=== PATIENT | female | born 1945 | race Caucasian/White ===

== ENCOUNTER 2019-07-29 13:10 | Outpatient (RCR) | payer SELFPAY | END 2019-08-21 23:59 | disposition home or self-care (01) | LOC: CR 13:10 | PROVIDERS: Family Provider Internal Medicine; PCP Internal Medicine; Referring Provider Internal Medicine Cardiovascular Disease; Visit Provider Internal Medicine Cardiovascular Disease | DX: I25.2 Old myocardial infarction (principal) ==

== ENCOUNTER 2019-08-24 14:26 | Outpatient (RCR) | payer SELFPAY | END 2019-09-19 23:59 | disposition home or self-care (01) | LOC: CR 14:26 | PROVIDERS: Family Provider Internal Medicine; PCP Internal Medicine; Referring Provider Internal Medicine Cardiovascular Disease; Visit Provider Internal Medicine Cardiovascular Disease | DX: I25.2 Old myocardial infarction (principal) ==

== ENCOUNTER → 2019-08-26 08:49 | Outpatient (BNVA) | payer MEDICARE, BC, SELFPAY | PROVIDERS: Family Provider Internal Medicine; PCP Internal Medicine; Visit Provider Internal Medicine Cardiovascular Disease | DX: E78.2 Mixed hyperlipidemia (principal); I49.8 Other specified cardiac arrhythmias; I25.5 Ischemic cardiomyopathy; I10 Essential (primary) hypertension | CPT/HCPCS: 80061 ==

== ENCOUNTER 2019-09-22 08:11 | Outpatient (RCR) | payer SELFPAY | END 2019-10-20 23:59 | disposition home or self-care (01) | LOC: CR 08:11 | PROVIDERS: Family Provider Internal Medicine; PCP Internal Medicine; Referring Provider Internal Medicine Cardiovascular Disease; Visit Provider Internal Medicine Cardiovascular Disease | DX: I25.2 Old myocardial infarction (principal) ==

== ENCOUNTER 2019-12-21 15:00 | Outpatient (RCR) | payer SELFPAY | END 2020-01-19 23:59 | disposition home or self-care (01) | LOC: CR 15:00 | PROVIDERS: Family Provider Internal Medicine; PCP Internal Medicine; Referring Provider Internal Medicine Cardiovascular Disease; Visit Provider Internal Medicine Cardiovascular Disease | DX: I25.2 Old myocardial infarction (principal) ==

== ENCOUNTER 2020-01-20 | Outpatient (RCR) | payer SELFPAY | END 2020-02-19 23:00 | disposition home or self-care (01) | LOC: CR | PROVIDERS: Family Provider Internal Medicine; PCP Internal Medicine; Referring Provider Internal Medicine Cardiovascular Disease; Visit Provider Internal Medicine Cardiovascular Disease | DX: I25.2 Old myocardial infarction (principal) ==

== ENCOUNTER → 2020-02-22 08:45 | Outpatient (BNVA) | payer MEDICARE, BC, SELFPAY | PROVIDERS: Family Provider Internal Medicine; PCP Internal Medicine; Visit Provider Internal Medicine Cardiovascular Disease | DX: E78.2 Mixed hyperlipidemia; I25.5 Ischemic cardiomyopathy; R06.02 Shortness of breath; I10 Essential (primary) hypertension; I49.8 Other specified cardiac arrhythmias | CPT/HCPCS: 80048; 80061 ==

== ENCOUNTER 2020-02-23 14:15 | Outpatient (RCR) | payer SELFPAY | END 2020-03-21 23:59 | disposition home or self-care (01) | LOC: CR 14:15 | PROVIDERS: Family Provider Internal Medicine; PCP Internal Medicine; Referring Provider Internal Medicine Cardiovascular Disease; Visit Provider Internal Medicine Cardiovascular Disease | DX: I25.2 Old myocardial infarction (principal) ==

== ENCOUNTER 2020-03-22 14:51 | Outpatient (RCR) | payer SELFPAY | END 2020-04-20 23:59 | disposition home or self-care (01) | LOC: CR 14:51 | PROVIDERS: Family Provider Internal Medicine; PCP Internal Medicine; Referring Provider Internal Medicine Cardiovascular Disease; Visit Provider Internal Medicine Cardiovascular Disease | DX: I25.2 Old myocardial infarction (principal) ==

== ENCOUNTER 2020-05-24 10:33 | Outpatient (RCR) | payer SELFPAY | END 2020-06-20 23:59 | disposition home or self-care (01) | LOC: CR 10:33 | PROVIDERS: Family Provider Internal Medicine; PCP Internal Medicine; Referring Provider Internal Medicine Cardiovascular Disease; Visit Provider Internal Medicine Cardiovascular Disease | DX: I25.2 Old myocardial infarction (principal) ==

== ENCOUNTER 2020-06-21 11:12 | Outpatient (RCR) | payer SELFPAY | END 2020-07-21 23:59 | disposition home or self-care (01) | LOC: CR 11:12 | PROVIDERS: Family Provider Internal Medicine; PCP Internal Medicine; Referring Provider Internal Medicine Cardiovascular Disease; Visit Provider Internal Medicine Cardiovascular Disease | DX: I21.9 Acute myocardial infarction, unspecified (principal) ==

== ENCOUNTER 2020-07-22 14:13 | Outpatient (RCR) | payer SELFPAY | END 2020-08-21 23:59 | disposition home or self-care (01) | LOC: CR 14:13 | PROVIDERS: Family Provider Internal Medicine; PCP Internal Medicine; Referring Provider Internal Medicine Cardiovascular Disease; Visit Provider Internal Medicine Cardiovascular Disease | DX: I25.2 Old myocardial infarction (principal) ==

== ENCOUNTER 2020-08-23 11:41 | Outpatient (RCR) | payer SELFPAY | END 2020-09-18 23:59 | disposition home or self-care (01) | LOC: CR 11:41 | PROVIDERS: Family Provider Internal Medicine; PCP Internal Medicine; Referring Provider Internal Medicine Cardiovascular Disease; Visit Provider Internal Medicine Cardiovascular Disease | DX: I25.2 Old myocardial infarction (principal) ==

== ENCOUNTER 2020-09-19 09:01 | Outpatient (RCR) | payer SELFPAY | END 2020-10-19 23:59 | disposition home or self-care (01) | LOC: CR 09:01 | PROVIDERS: Family Provider Internal Medicine; PCP Internal Medicine; Referring Provider Internal Medicine Cardiovascular Disease; Visit Provider Internal Medicine Cardiovascular Disease | DX: I25.2 Old myocardial infarction (principal) ==

== ENCOUNTER 2020-10-20 10:22 | Outpatient (RCR) | payer SELFPAY | END 2020-11-18 23:59 | disposition home or self-care (01) | LOC: CR 10:22 | PROVIDERS: Family Provider Internal Medicine; PCP Internal Medicine; Referring Provider Internal Medicine Cardiovascular Disease; Visit Provider Internal Medicine Cardiovascular Disease | DX: I25.2 Old myocardial infarction (principal) ==

== ENCOUNTER 2020-11-21 11:21 | Outpatient (RCR) | payer SELFPAY | END 2020-12-19 23:59 | disposition home or self-care (01) | LOC: CR 11:21 | PROVIDERS: Family Provider Internal Medicine; PCP Internal Medicine; Referring Provider Internal Medicine Cardiovascular Disease; Visit Provider Internal Medicine Cardiovascular Disease | DX: I25.2 Old myocardial infarction (principal) ==

== ENCOUNTER 2020-12-22 14:50 | Outpatient (RCR) | payer SELFPAY | END 2021-01-18 23:59 | disposition home or self-care (01) | LOC: CR 14:50 | PROVIDERS: Family Provider Internal Medicine; PCP Internal Medicine; Referring Provider Internal Medicine Cardiovascular Disease; Visit Provider Internal Medicine Cardiovascular Disease | DX: I25.2 Old myocardial infarction (principal) ==

== ENCOUNTER 2021-01-19 14:33 | Outpatient (RCR) | payer SELFPAY | END 2021-02-18 23:59 | disposition home or self-care (01) | LOC: CR 14:33 | PROVIDERS: Family Provider Internal Medicine; PCP Internal Medicine; Referring Provider Internal Medicine Cardiovascular Disease; Visit Provider Internal Medicine Cardiovascular Disease | DX: I25.2 Old myocardial infarction (principal) ==

== ENCOUNTER 2021-02-23 15:20 | Outpatient (RCR) | payer SELFPAY | END 2021-03-21 23:59 | disposition home or self-care (01) | LOC: CR 15:20 | PROVIDERS: Family Provider Internal Medicine; PCP Internal Medicine; Referring Provider Internal Medicine Cardiovascular Disease; Visit Provider Internal Medicine Cardiovascular Disease | DX: I25.2 Old myocardial infarction (principal) ==

== ENCOUNTER 2021-03-22 14:35 | Outpatient (RCR) | payer SELFPAY | END 2021-04-20 23:59 | disposition home or self-care (01) | LOC: CR 14:35 | PROVIDERS: Family Provider Internal Medicine; PCP Internal Medicine; Referring Provider Internal Medicine Cardiovascular Disease; Visit Provider Internal Medicine Cardiovascular Disease | DX: I25.2 Old myocardial infarction (principal) ==

== ENCOUNTER 2021-04-21 10:15 | Outpatient (RCR) | payer SELFPAY | END 2021-05-21 23:59 | disposition home or self-care (01) | LOC: CR 10:15 | PROVIDERS: Family Provider Internal Medicine; PCP Internal Medicine; Referring Provider Internal Medicine Cardiovascular Disease; Visit Provider Internal Medicine Cardiovascular Disease | DX: I25.2 Old myocardial infarction (principal) ==

== ENCOUNTER 2021-05-22 14:14 | Outpatient (RCR) | payer SELFPAY | END 2021-06-20 23:59 | disposition home or self-care (01) | LOC: CR 14:14 | PROVIDERS: Family Provider Internal Medicine; PCP Internal Medicine; Referring Provider Internal Medicine Cardiovascular Disease; Visit Provider Internal Medicine Cardiovascular Disease | DX: I25.2 Old myocardial infarction (principal) ==

== ENCOUNTER 2021-06-21 13:31 | Outpatient (RCR) | payer SELFPAY | END 2021-07-21 23:59 | disposition home or self-care (01) | LOC: CR 13:31 | PROVIDERS: Family Provider Internal Medicine; PCP Internal Medicine; Referring Provider Internal Medicine Cardiovascular Disease; Visit Provider Internal Medicine Cardiovascular Disease | DX: I25.2 Old myocardial infarction (principal) ==

== ENCOUNTER 2021-07-24 10:41 | Outpatient (RCR) | payer SELFPAY | END 2021-08-21 23:59 | disposition home or self-care (01) | LOC: CR 10:41 | PROVIDERS: Family Provider Internal Medicine; PCP Internal Medicine; Referring Provider Internal Medicine Cardiovascular Disease; Visit Provider Internal Medicine Cardiovascular Disease | DX: I25.2 Old myocardial infarction (principal) ==

== ENCOUNTER 2021-08-22 09:04 | Outpatient (RCR) | payer SELFPAY | END 2021-09-18 23:59 | disposition home or self-care (01) | LOC: CR 09:04 | PROVIDERS: Family Provider Internal Medicine; PCP Internal Medicine; Referring Provider Internal Medicine Cardiovascular Disease; Visit Provider Internal Medicine Cardiovascular Disease | DX: I25.2 Old myocardial infarction (principal) ==

== ENCOUNTER 2021-09-19 13:15 | Outpatient (RCR) | payer SELFPAY | END 2021-10-19 23:59 | disposition home or self-care (01) | LOC: CR 13:15 | PROVIDERS: Family Provider Internal Medicine; PCP Internal Medicine; Referring Provider Internal Medicine Cardiovascular Disease; Visit Provider Internal Medicine Cardiovascular Disease | DX: I25.2 Old myocardial infarction (principal) ==

== ENCOUNTER 2021-10-20 13:23 | Outpatient (RCR) | payer SELFPAY | END 2021-11-18 23:59 | disposition home or self-care (01) | LOC: CR 13:23 | PROVIDERS: Family Provider Internal Medicine; PCP Internal Medicine; Referring Provider Internal Medicine Cardiovascular Disease; Visit Provider Internal Medicine Cardiovascular Disease | DX: I25.2 Old myocardial infarction (principal) ==

== ENCOUNTER → 2021-10-25 10:08 | Outpatient (BNVA) | payer MEDICARE, BC, SELFPAY | PROVIDERS: Family Provider Internal Medicine; PCP Internal Medicine; Visit Provider Internal Medicine Cardiovascular Disease | DX: R06.00 Dyspnea, unspecified (principal); E78.2 Mixed hyperlipidemia; I10 Essential (primary) hypertension; I25.10 Atherosclerotic heart disease of native coronary artery without angina pectoris; I25.5 Ischemic cardiomyopathy | CPT/HCPCS: 99214 ==

== ENCOUNTER 2021-11-16 05:56 | Outpatient (CLI) | payer MEDICARE, BC, SELFPAY ==
--- NOTE | 2021-11-16 06:15 | USCV_ITS ---
Zulma Dash Age: 76 Gender: F : 1945 Exam Date: 11/16/2021 06:16 Ordering Phys: Jessica Chambers MD ([email or web address]) Technologist: SHIELA Exam Location: [facility] [place] Indication: CARDIOMYOPATHY BP: 120 / 70 HR: 65 Rhythm: Sinus Technical Quality: MEASUREMENTS (Male / Female) Normal Values 2D ECHO LV Diastolic Diameter PLAX 5.7 cm 4.2 - 5.9 / 3.9 - 5.3 cm LV Systolic Diameter PLAX 4.3 cm IVS Diastolic Thickness 1.0 cm 0.6 - 1.0 / 0.6 - 0.9 cm IVS Systolic Thickness 1.7 cm LVPW Diastolic Thickness 1.3 cm 0.6 - 1.0 / 0.6 - 0.9 cm LVPW Systolic Thickness 1.3 cm LVOT Diameter 2.0 cm LV Ejection Fraction 2D Teich 48.6 % LV Ejection Fraction MOD 2C 42.5 % LV Ejection Fraction 2C AL 44.2 % LA Diameter 3.5 cm LA Width 2.8 cm LA Height 5.2 cm RA Width 4.0 cm RA Height 4.5 cm Aorta at Sinotubular Diameter 2.8 cm M-MODE Aortic Annulus Diameter 3.0 cm LA Ao Ratio MM 1.1 MV E Point Septal Separation 2.0 cm DOPPLER AV Peak Velocity 203.0 cm/s LVOT Peak Velocity 107.7 cm/s AV Area Cont Eq vti 2.1 cm squared AV Area Cont Eq pk 1.7 cm squared MV Area PHT 4.8 cm squared Mitral E to A Ratio 1.0 MV E' Velocity 51.5 cm/s Mitral E to MV E' Ratio 9.0 Mitral E to LV E' Lateral Ratio 8.2 Mitral E to LV E' Septal Ratio 10.1 TR Peak Velocity 293.2 cm/s TR Peak Gradient 34.4 mmHg TR Mean Velocity 249.2 cm/s TR Mean Gradient 25.7 mmHg TR Velocity Time Integral 102.4 cm TV Peak E Velocity 56.0 cm/s Right Atrial Pressure 3.0 mmHg Pulmonary Artery Systolic Pressu 37.4 mmHg PV Peak Velocity 86.0 cm/s RV Acceleration Time 0.1 s RV Ejection Time 0.4 s RV AcT/ET 0.3 FINDINGS Left Ventricle Mildly dilated left ventricle with an ejection fraction of around 45%. Diffuse hypokinesia of the left ventricle. Right Ventricle The right ventricle is normal in size and function. Right Atrium Upper limit of normal size Left Atrium Upper limit of normal size Mitral Valve Trace to mild mitral valve regurgitation. Aortic Valve Qyyg-vp-hiherwrk aortic valve regurgitation. Tricuspid Valve Mild tricuspid valve regurgitation. Pulmonic Valve Mild pulmonary valve regurgitation. Pericardium No pericardial effusion. Aorta Normal aortic annulus size. CONCLUSIONS Mildly dilated left ventricle with an ejection fraction of around 45%. Diffuse hypokinesia of the left ventricle. Both atria, upper limit of normal size. Trace to mild mitral valve regurgitation. Vwfp-yn-rqckkipf aortic valve regurgitation. Mild tricuspid valve regurgitation. Mild pulmonary valve regurgitation. Estimated pulmonary artery peak systolic pressure 37 mmHg Compared to the study from 04/30/2016, there is slight worsening of the aortic regurgitation, otherwise no significant change. Dr Jessica Chambers MD FAC (Electronically Signed) Final Date: 20 Nov 2021 09:33 S
== END 2021-11-16 05:57 | disposition home or self-care (01) ==
LOC: RAD 05:58
PROVIDERS: Family Provider Internal Medicine; PCP Internal Medicine; Visit Provider Internal Medicine Cardiovascular Disease
DX: R06.00 Dyspnea, unspecified (principal); I25.5 Ischemic cardiomyopathy; I34.0 Nonrheumatic mitral (valve) insufficiency; I35.1 Nonrheumatic aortic (valve) insufficiency; I37.1 Nonrheumatic pulmonary valve insufficiency; I07.1 Rheumatic tricuspid insufficiency
CPT/HCPCS: 93306

== ENCOUNTER 2021-11-20 12:48 | Outpatient (RCR) | payer SELFPAY | END 2021-12-19 23:59 | disposition home or self-care (01) | LOC: CR 12:48 | PROVIDERS: Family Provider Internal Medicine; PCP Internal Medicine; Referring Provider Internal Medicine Cardiovascular Disease; Visit Provider Internal Medicine Cardiovascular Disease | DX: I25.2 Old myocardial infarction (principal) ==

== ENCOUNTER 2021-12-20 12:37 | Outpatient (RCR) | payer SELFPAY | END 2022-01-18 23:59 | disposition home or self-care (01) | LOC: CR 12:37 | PROVIDERS: Family Provider Internal Medicine; PCP Internal Medicine; Referring Provider Internal Medicine Cardiovascular Disease; Visit Provider Internal Medicine Cardiovascular Disease | DX: I25.2 Old myocardial infarction (principal) ==

== ENCOUNTER 2022-01-31 11:40 | Outpatient (RCR) | payer SELFPAY | END 2022-02-18 23:59 | disposition home or self-care (01) | LOC: CR 11:40 | PROVIDERS: Family Provider Internal Medicine; PCP Internal Medicine; Referring Provider Internal Medicine Cardiovascular Disease; Visit Provider Internal Medicine Cardiovascular Disease | DX: I25.2 Old myocardial infarction (principal) ==

== ENCOUNTER 2022-02-19 11:58 | Outpatient (RCR) | payer SELFPAY | END 2022-03-21 23:59 | disposition home or self-care (01) | LOC: CR 11:58 | PROVIDERS: Family Provider Internal Medicine; PCP Internal Medicine; Referring Provider Internal Medicine Cardiovascular Disease; Visit Provider Internal Medicine Cardiovascular Disease | DX: I25.2 Old myocardial infarction (principal) ==

== ENCOUNTER 2022-04-03 09:30 | Outpatient (RCR) | payer MEDICARE, BC, SELFPAY | END 2022-04-20 23:59 | disposition home or self-care (01) | LOC: SPT 09:30 | PROVIDERS: PCP Internal Medicine; Visit Provider Chiropractor | DX: M25.561 Pain in right knee (principal); M25.562 Pain in left knee | CPT/HCPCS: 97110; 97161 ==

== ENCOUNTER → 2022-04-10 12:58 | Outpatient (BNVA) | payer MEDICARE, BC, SELFPAY | PROVIDERS: PCP Internal Medicine; Visit Provider Orthopaedic Surgery | DX: M17.12 Unilateral primary osteoarthritis, left knee (principal) | CPT/HCPCS: 20610; 99203; J0702; J3490 ==

== ENCOUNTER 2022-04-21 06:00 | Outpatient (RCR) | payer MEDICARE, BC, SELFPAY | END 2022-05-21 23:59 | disposition home or self-care (01) | LOC: SPT 06:00 | PROVIDERS: PCP Internal Medicine; Visit Provider Chiropractor | DX: M25.561 Pain in right knee (principal); M25.562 Pain in left knee | CPT/HCPCS: 97110 ==

== ENCOUNTER → 2022-04-23 10:52 | Outpatient (BNVA) | payer MEDICARE, BC, SELFPAY | PROVIDERS: Family Provider Internal Medicine; PCP Internal Medicine; Visit Provider Internal Medicine Cardiovascular Disease | DX: I25.10 Atherosclerotic heart disease of native coronary artery without angina pectoris (principal); I10 Essential (primary) hypertension; I25.5 Ischemic cardiomyopathy; E78.2 Mixed hyperlipidemia | CPT/HCPCS: 80048; 83880; 99214 ==

== ENCOUNTER 2022-06-21 14:45 | Outpatient (RCR) | payer SELFPAY | END 2022-07-21 23:59 | disposition home or self-care (01) | LOC: CR 14:45 | PROVIDERS: Family Provider Internal Medicine; PCP Internal Medicine; Referring Provider Internal Medicine Cardiovascular Disease; Visit Provider Internal Medicine Cardiovascular Disease | DX: I25.2 Old myocardial infarction (principal) ==

== ENCOUNTER 2022-07-25 12:40 | Outpatient (RCR) | payer SELFPAY | END 2022-08-21 23:59 | disposition home or self-care (01) | LOC: CR 12:40 | PROVIDERS: Family Provider Internal Medicine; PCP Internal Medicine; Referring Provider Internal Medicine Cardiovascular Disease; Visit Provider Internal Medicine Cardiovascular Disease | DX: I25.2 Old myocardial infarction (principal) ==

== ENCOUNTER → 2022-08-08 08:45 | Outpatient (BNVA) | payer MEDICARE, BC, SELFPAY | PROVIDERS: Family Provider Internal Medicine; PCP Internal Medicine; Visit Provider Orthopaedic Surgery | DX: M17.12 Unilateral primary osteoarthritis, left knee (principal) | CPT/HCPCS: 20610; 99212; J7327 ==

== ENCOUNTER 2022-08-22 14:15 | Outpatient (RCR) | payer SELFPAY | END 2022-09-18 23:59 | disposition home or self-care (01) | LOC: CR 14:15 | PROVIDERS: Family Provider Internal Medicine; PCP Internal Medicine; Referring Provider Internal Medicine Cardiovascular Disease; Visit Provider Internal Medicine Cardiovascular Disease | DX: I25.2 Old myocardial infarction (principal) ==

== ENCOUNTER → 2022-09-11 13:04 | Outpatient (BNVA) | payer MEDICARE, BC, SELFPAY | PROVIDERS: Family Provider Internal Medicine; PCP Internal Medicine; Visit Provider Nurse Practitioner Family | DX: I25.10 Atherosclerotic heart disease of native coronary artery without angina pectoris (principal); I10 Essential (primary) hypertension; I25.5 Ischemic cardiomyopathy | CPT/HCPCS: 99214 ==

== ENCOUNTER 2022-09-19 14:46 | Outpatient (RCR) | payer SELFPAY | END 2022-10-19 23:59 | disposition home or self-care (01) | LOC: CR 14:46 | PROVIDERS: Family Provider Internal Medicine; PCP Internal Medicine; Referring Provider Internal Medicine Cardiovascular Disease; Visit Provider Internal Medicine Cardiovascular Disease | DX: I25.2 Old myocardial infarction (principal) ==

== ENCOUNTER 2022-11-19 15:16 | Outpatient (RCR) | payer SELFPAY | END 2022-12-19 23:59 | disposition home or self-care (01) | LOC: CR 15:16 | PROVIDERS: Family Provider Internal Medicine; PCP Internal Medicine; Referring Provider Internal Medicine Cardiovascular Disease; Visit Provider Internal Medicine Cardiovascular Disease | DX: I25.2 Old myocardial infarction (principal) ==

== ENCOUNTER → 2022-12-18 10:39 | Outpatient (BNVA) | payer MEDICARE, BC, SELFPAY | PROVIDERS: Family Provider Internal Medicine; PCP Internal Medicine; Visit Provider Nurse Practitioner Family | DX: M17.12 Unilateral primary osteoarthritis, left knee (principal) | CPT/HCPCS: 20610; 99213; J1100; J2795; J3301 ==

== ENCOUNTER 2023-01-21 08:38 | Outpatient (RCR) | payer SELFPAY | END 2023-02-18 23:59 | disposition home or self-care (01) | LOC: CR 08:38 | PROVIDERS: Family Provider Internal Medicine; PCP Internal Medicine; Referring Provider Internal Medicine Cardiovascular Disease; Visit Provider Internal Medicine Cardiovascular Disease | DX: I25.2 Old myocardial infarction (principal) ==

== ENCOUNTER → 2023-02-12 10:56 | Outpatient (BNVA) | payer MEDICARE, BC, SELFPAY | PROVIDERS: Family Provider Internal Medicine; PCP Internal Medicine; Visit Provider Nurse Practitioner Family | DX: M17.12 Unilateral primary osteoarthritis, left knee (principal) | CPT/HCPCS: 20610; 99213; J7327 ==

== ENCOUNTER 2023-02-19 14:02 | Outpatient (RCR) | payer SELFPAY | END 2023-03-21 23:59 | disposition home or self-care (01) | LOC: CR 14:02 | PROVIDERS: Family Provider Internal Medicine; PCP Internal Medicine; Referring Provider Internal Medicine Cardiovascular Disease; Visit Provider Internal Medicine Cardiovascular Disease | DX: I25.2 Old myocardial infarction (principal) ==

== ENCOUNTER → 2023-03-13 13:55 | Outpatient (BNVA) | payer MEDICARE, BC, SELFPAY | PROVIDERS: Family Provider Internal Medicine; PCP Internal Medicine; Visit Provider Internal Medicine Cardiovascular Disease | DX: I25.10 Atherosclerotic heart disease of native coronary artery without angina pectoris (principal); I10 Essential (primary) hypertension; E78.2 Mixed hyperlipidemia; I25.5 Ischemic cardiomyopathy | CPT/HCPCS: 99214 ==

== ENCOUNTER 2023-03-22 11:08 | Outpatient (RCR) | payer SELFPAY | END 2023-04-20 23:59 | disposition home or self-care (01) | LOC: CR 11:08 | PROVIDERS: Family Provider Internal Medicine; PCP Internal Medicine; Referring Provider Internal Medicine Cardiovascular Disease; Visit Provider Internal Medicine Cardiovascular Disease | DX: I25.2 Old myocardial infarction (principal) ==

== ENCOUNTER 2023-04-01 09:58 | Outpatient (CLI) | payer MEDICARE, BC, SELFPAY ==
--- NOTE | 2023-04-01 10:15 | USCV_ITS ---
Zulma Dash Age: 77 Gender: F : 1945 Exam Date: 04/01/2023 10:40 Ordering Phys: Jessica Chambers MD ([email or web address]) Technologist: CT Exam Location: [facility] [place] Indication: cardiomyopathy BP: 138 / 81 HR: 53 Rhythm: Sinus Technical Quality: Adequate MEASUREMENTS (Male / Female) Normal Values 2D ECHO LV Chamber Size 5.1 cm RV Chamber Size 3.8 cm LVOT Diameter 2.1 cm LV Ejection Fraction MOD 2C 42.5 % LV Ejection Fraction 2C AL 39.7 % LA Diameter 4.1 cm LA Width 3.9 cm LA Height 5.6 cm RA Width 4.1 cm RA Height 4.5 cm Aorta at Sinotubular Diameter 2.6 cm IVC Diameter 0.9 cm M-MODE Aortic Annulus Diameter 3.1 cm LA Ao Ratio MM 1.3 MV E Point Septal Separation 2.2 cm DOPPLER AV Peak Velocity 175.0 cm/s LVOT Peak Velocity 103.0 cm/s AV Area Cont Eq vti 2.4 cm squared AV Area Cont Eq pk 2.1 cm squared MV Area PHT 3.4 cm squared Mitral E to A Ratio 0.9 MV E' Velocity 32.0 cm/s Mitral E to MV E' Ratio 7.3 Mitral E to LV E' Lateral Ratio 9.4 Mitral E to LV E' Septal Ratio 6.0 TR Peak Velocity 155.0 cm/s TR Peak Gradient 9.6 mmHg TV Peak E Velocity 77.0 cm/s Right Atrial Pressure 3.0 mmHg Pulmonary Artery Systolic Pressu 12.6 mmHg PV Peak Velocity 109.0 cm/s FINDINGS Left Ventricle Diffuse hypokinesia of the left ventricle with an ejection fraction of 43%. Mildly dilated LV cavity. Right Ventricle Normal right ventricular systolic function. Right Atrium Mildly increased right atrial size. Left Atrium Mildly increased left atrial size. Mitral Valve Thickened mitral valve. Aortic Valve Bkrz-kj-exrlephe aortic valve regurgitation. Tricuspid Valve Trace tricuspid valve regurgitation. Pulmonic Valve No gross abnormalities noted Pericardium No pericardial effusion. Aorta Normal aortic annulus size. IVC Normal inferior vena cava. CONCLUSIONS Diffuse hypokinesia of the left ventricle with an ejection fraction of 43%. Mildly dilated LV cavity. Mild biatrial enlargementThickened mitral valve. Wmmb-ab-gfgbypmk aortic valve regurgitation. Trace tricuspid valve regurgitation. Estimated pulmonary artery peak systolic pressure, probably within normal meds. There is no pericardial effusion. Compared to the study from 11/16/2021, there may not be a significant change Dr Jessica Chambers MD [facility] (Electronically Signed) Final Date: 02 April 2023 10:13 S
== END 2023-04-01 09:59 | disposition home or self-care (01) ==
LOC: RAD 10:00
PROVIDERS: PCP Internal Medicine; Visit Provider Internal Medicine Cardiovascular Disease
DX: R06.09 Other forms of dyspnea (principal); I42.9 Cardiomyopathy, unspecified; I05.9 Rheumatic mitral valve disease, unspecified; I35.1 Nonrheumatic aortic (valve) insufficiency
CPT/HCPCS: 93306

== ENCOUNTER 2023-04-23 09:46 | Outpatient (RCR) | payer SELFPAY | END 2023-05-21 23:59 | disposition home or self-care (01) | LOC: CR 09:46 | PROVIDERS: Family Provider Internal Medicine; PCP Internal Medicine; Referring Provider Internal Medicine Cardiovascular Disease; Visit Provider Internal Medicine Cardiovascular Disease | DX: I25.2 Old myocardial infarction (principal) ==

== ENCOUNTER 2023-05-23 15:31 | Outpatient (RCR) | payer SELFPAY | END 2023-06-20 23:59 | disposition home or self-care (01) | LOC: CR 15:31 | PROVIDERS: Family Provider Internal Medicine; PCP Internal Medicine; Referring Provider Internal Medicine Cardiovascular Disease; Visit Provider Internal Medicine Cardiovascular Disease | DX: I25.2 Old myocardial infarction (principal) ==

== ENCOUNTER 2023-05-25 13:06 | Observation (INO) | payer MEDICARE, OTHER, BC, SELFPAY ==
[2023-05-25] VITALS (10 sets, daily range): BP systolic 107–133; BP diastolic 57–83; PULSE 69–79; RESP 14–84; TEMP 36.9; O2SAT 92–97
--- NOTE | 2023-05-25 13:15 | ED_ITS ---
Documented by User: [email or web address] Tena 05/25/23 15:12 HPI - Allergic Reaction General: Chief complaint: Allergic Reaction Stated complaint: bee sting, allergic reaction Time Seen by Provider: 05/25/23 13:08 History of Present Illness: HPI narrative: Patient is a 77-year-old female with a past medical history significant for cardiomyopathy, diverticulosis, GERD, hyperlipidemia, hypertension, and osteoarthritis who presents to the emergency department for evaluation of a bee sting. Patient reports that at approximately 1230 this afternoon she was stung twice by a bee. Patient endorses 1 sting on the right side of her neck and one sting on the left forearm. Patient reports that she is now experiencing diffuse pruritus. Patient states that she has had severe allergic reactions in the past so she decided present to the emergency department for further management/evaluation. Patient states that she took 50 mg of Benadryl prior to arrival. Patient does endorse mild relief of symptoms after medication administration. Patient denies current chest pain, shortness of breath, throat swelling, excessive drooling, lightheadedness, dizziness, nausea, vomiting, fever, chills, or any other associated symptoms. No other complaints at this time. Associated symptoms: Deny abdominal pain, hoarseness, nausea or vomiting Review of Systems Const: Denies: fever(s), chills, body aches or diaphoresis Eyes: Denies: change in vision or blurry vision ENMT: Denies: throat pain, odynophagia, hoarseness, mouth pain, change in hearing, nasal discharge or nasal congestion Card: Denies: chest pain, lightheadedness, syncope, pre-syncope or orthopnea Resp: Denies: dyspnea, productive cough, non-productive cough or wheezing GI: Denies: abdominal pain, nausea or vomiting Musc: Denies: extremity pain, muscle weakness or decrease in muscle mass Skin/Breast: Reports: pruritus and other (Admits to 2 Insect bite/stings) Neuro: Denies: headache(s), numbness in extremities, weakness in extremities or sensory changes PFSH ED PFSH: Medical History Cardiomyopathy Patient had a cardiac catheterization on 01/29/2016. She was found to have no significant obstructive coronary artery disease. Ejection fraction at that time was 30%. Subsequently the ejection fraction improved to 40%, by echocardiogram Diverticulosis GERD (gastroesophageal reflux disease) Hyperlipidemia Hypertension Osteoarthritis Other specified cardiac arrhythmias Surgical History H/O cataract extraction History of hysterectomy History of knee replacement History of total hip arthroplasty Family History Brother CAD (coronary artery disease) Cancer Mother CAD (coronary artery disease) Cancer Father Cancer Other Hypertension Denies family history of Diabetes Clotting disorder Dementia Chronic kidney disease (CKD) Suicide Anesthesia complication Bleeding disorder Lung disease Stroke Social History Smoking and tobacco/nicotine status: never used tobacco/nicotine Alcohol intake: current Alcohol intake frequency: holidays/special occasions only Substance/Drug Use: never Physical Exam Const: COMMON NORMALS: no acute distress, average body habitus and patient oriented x3 HENMT: COMMON NORMALS: normocephalic, atraumatic and Normal external nose present HEAD & SCALP: normocephalic and atraumatic NOSE: Normal external nose present and Normal nares present MOUTH: Normal oral and palatal mucosa present, tongue normal and other (Posterior oropharynx clear without swelling, lesions, erythema, or exudates); no drooling, lip not abnormal and no muffled voice Eye: COMMON NORMALS: Equal, round and reactive pupils present, EOMs intact bilaterally and conjunctivae normal CONJUNCTIVA: Yes conjunctivae normal PUPIL: Yes Equal, round and reactive pupils present Chest: CHEST: Yes Symmetrical chest wall rise Resp: COMMON NORMALS: normal respiratory effort, No retractions, No use of accessory muscles and clear to auscultation bilaterally AUSCULTATION: clear to auscultation bilaterally Cardio: COMMON NORMALS: regular rate, regular rhythm, No gallops present (Cardio), No clicks present (Cardio), No murmurs present (Cardio) and No rub (Cardio) RATE: regular rate RHYTHM: regular rhythm Neuro: COMMON NORMALS: patient oriented x3, moves all extremities, no focal motor deficits and no sensory deficits noted Skin: NARRATIVE SKIN EXAM: 2 approximately 1 cm x 1 cm areas of erythema are noted to the patient's right neck and left forearm. No underlying fluctuance or induration noted. No evidence of underlying abscess. Lesions consistent with a insect sting. Course Vital Signs: Vital signs: Vital Signs Pulse Rate 73 05/25/23 16:26 Respiratory Rate 20 H 05/25/23 16:26 Blood Pressure 128/67 05/25/23 16:26 Pulse Oximetry 97 05/25/23 16:26 Oxygen Delivery Me thod Room Air 05/25/23 15:54 MDM - Allergic Reaction Medical Decision Making Patient is a 77-year-old female with a past medical history significant for cardiomyopathy, diverticulosis, GERD, hyperlipidemia, hypertension, and osteoar thritis who presents to the emergency department for evaluation of a bee sting. On physical examination patient is nontoxic and in no acute distress. Vital signs remained stable throughout the ED course. Patient is afebrile. Patient is neurovascular intact. Posterior oropharynx clear without swelling, lesions, erythema, or exudates. No swelling or erythema is noted to the tongue or floor of the mouth. No intercostal retractions or accessory muscle use noted. No evidence of anaphylaxis this time. Patient did become hypotensive in the emergency department so she was given 1 L of normal saline. Hypotension improved after fluid administration. Patient was given IV Solu-Medrol and Pepc id in the emergency department. Patient reports that she took 50 mg of Benadryl prior to arrival. Patient was monitored in the emergency department for an extended period of time without evidence of anaphylaxis. Patient stated relief of symptoms after medication administration. During stay patient went into a episode of stable monomorphic V. tach. Patient is now back to normal sinus rhythm. Due to arrhythmia and brief episode of hypotension I will admit to the ICU and order cardiac labs. At this point in time plan of care was passed over to my colleague Dr. Denise. Differential Diagnosis Likely anaphylaxis, allergic reaction, angioedema, contact dermatitis and urticaria Lab Data 05/25/23 13:50 05/25/23 13:50 Laboratory Results WBC 4.47 10^3/uL (3.29-11.43) 05/25/23 13:50 RBC 4.59 10^6/uL (3.85-5.65) 05/25/23 13:50 Hgb 13.30 g/dL (11.27-16.99) 05/25/23 13:50 Hct 43.5 % (36-47) 05/25/23 13:50 MCV 94.8 fl (85-98) 05/25/23 13:50 MCH 29.0 pg (27-33) 05/25/23 13:50 MCHC 30.6 g/dL (30-55) 05/25/23 13:50 RDW 14.2 % (12.1-15.1) 05/25/23 13:50 Plt Count 219 10^3/cmm (157-399) 05/25/23 13:50 MPV 11.3 fL (7.4-10.4) H 05/25/23 13:50 Neut % (Auto) 53.3 % 05/25/23 13:50 Lymph % (Auto) 40.0 % 05/25/23 13:50 Amador % (Auto) 4.5 % 05/25/23 13:50 Eos % (Auto) 2.0 % 05/25/23 13:50 Baso % (Auto) 0.0 % 05/25/23 13:50 Neut # (Auto) 2.38 10^3/uL (1.8-7.7) 05/25/23 13:50 Lymph # (Auto) 1.8 10^3/uL (0.8-4.8) 05/25/23 13:50 Amador # (Auto) 0.2 10^3/uL (0.2-0.9) 05/25/23 13:50 Eos # (Auto) 0.1 10^3/uL (0.0-0.8) 05/25/23 13:50 Baso # (Auto) 0.0 10^3/uL (0.0-0.1) 05/25/23 13:50 Nucleated RBC % (auto) 0 % 05/25/23 13:50 Nucleated RBCs # 0.0 /100WBC 05/25/23 13:50 Sodium 142 mmol/L (136-145) 05/25/23 13:50 Potassium 3.6 mmol/L (3.5-5.1) 05/25/23 13:50 Chloride 105 mmol/L (98-107) 05/25/23 13:50 Carbon Dioxide 21 mmol/L (22-29) L 05/25/23 13:50 Anion Gap 19.6 (5-19) H 05/25/23 13:50 BUN 23 mg/dL (8-23) 05/25/23 13:50 Creatinine 1.1 mg/dL (0.5-0.9) H 05/25/23 13:50 GFR Calculation Not Reportable 05/25/23 13:50 Glucose 156 mg/dL (65-115) H 05/25/23 13:50 Calculated Osmolality 301 mOsm/kg (285-295) H 05/25/23 13:50 Calcium 9.9 mg/dL (8.5-10.5) 05/25/23 13:50 Total Bilirubin 0.6 mg/dL (0.15-1.2) 05/25/23 13:50 AST 21 U/L (0-32) 05/25/23 13:50 ALT 19 U/L (0-33) 05/25/23 13:50 Alkaline Phosphatase 88 U/L (35-105) 05/25/23 13:50 Troponin T Baseline 17 ng/L (0-10) H 05/25/23 13:50 Troponin T 120 Minute 37.23 ng/L (0-10) H 05/25/23 15:25 Delta Troponin T 20.23 ABS# (0-10) H* 05/25/23 15:25 Total Protein 6.2 g/dL (6.6-8.7) L 05/25/23 13:50 Albumin 3.8 g/dL (3.5-5.2) 05/25/23 13:50 Globulin 2.4 g/dL (1.3-4.6) 05/25/23 13:50 All radiology interpretation(s) finalized by discharge Discharge Plan Discharge Admit Provider: Jeanne Rodriguez Clinical Impression: Elevated troponin, Non-sustained ventricular tachycardia Condition: Stable Sign Out Sign Out Data: Patient Sign Out occurred on 05/25/23 at 15:11. Patient's care was discussed, and care was transferred from to Sharif Denise DO. Coding Level of Care Code ED Rodent Exterminator for Chg Fwd Documented by User: Sharif Denise DO 05/25/23 16:42 HPI - Allergic Reaction General: Chief complaint: Allergic Reaction Stated complaint: bee sting, allergic reaction Time Seen by Provider: 05/25/23 13:08 [facility] ED PFSH: Medical History Cardiomyopathy Patient had a cardiac catheterization on 01/29/2016. She was found to have no significant obstructive coronary artery disease. Ejection fraction at that time was 30%. Subsequently the ejection fraction improved to 40%, by echocardiogram Diverticulosis GERD (gastroesophageal reflux disease) Hyperlipidemia Hypertension Osteoarthritis Other specified cardiac arrhythmias Surgical History H/O cataract extraction History of hysterectomy History of knee replacement History of total hip arthroplasty Family History Brother CAD (coronary artery disease) Cancer Mother CAD (coronary artery disease) Cancer Father Cancer Other Hypertension Denies family history of Diabetes Clotting disorder Dementia Chronic kidney disease (CKD) Suicide Anesthesia complication Bleeding disorder Lung disease Stroke Social History Smoking and tobacco/nicotine status: never used tobacco/nicotine Alcohol intake: current Alcohol intake frequency: holidays/special occasions only Substance/Drug Use: never Course Vital Signs: Vital signs: Vital Signs Pulse Rate 73 05/25/23 16:26 Respiratory Rate 20 H 05/25/23 16:26 Blood Pressure 128/67 05/25/23 16:26 Pulse Oximetry 97 05/25/23 16:26 Oxygen Delivery Me thod Room Air 05/25/23 15:54 MDM - Allergic Reaction Medical Decision Making Patient is a 77-year-old female with a past medical history significant for c ardiomyopathy, diverticulosis, GERD, hyperlipidemia, hypertension, and osteoarthritis who presents to the emergency department for evaluation of a bee sting. On physical examination patient is nontoxic and in no acute distress. Vital signs remained stable throughout the ED course. Patient is afebrile. Patient is neurovascular intact. Posterior oropharynx clear without swelling, lesions, erythema, or exudates. No swelling or erythema is noted to the tongue or floor of the mouth. No intercostal retractions or accessory muscle use noted. No evidence of anaphylaxis this time. Patient did become hypotensive in the emergency department so she was given 1 L of normal saline. Hypotension i mproved after fluid administration. Patient was given IV Solu-Medrol and Pepcid in the emergency department. Patient reports that she took 50 mg of Benadryl prior to arrival. Patient was monitored in the emergency department for an extended period of time without evidence of anaphylaxis. Patient stated relief of symptoms after medication administration. During stay patient went into a episode of stable monomorphic V. tach. Patient is now back to normal sinus rhythm. Due to arrhythmia and brief episode of hypotension I will admit to the ICU and order cardiac labs. At this point in time plan of care was passed over to my colleague Dr. Denise. Patient seen and evaluated nonsustained run of V. tach positive delta troponin +20. Discussed with hospitalist as well as with diesel mechanic did give her milligrams of Lovenox and half an inch Nitropaste repeat unremarkable for acute ST change EKG after positive delta was just. There is little persistent rash. Patient was examined remainder of exam is normal. Orders written for CSU. Medical Records I reviewed the patient's medical records. Lab Data I reviewed the patient's lab results. 05/25/23 13:50 05/25/23 13:50 Laboratory Results WBC 4.47 10^3/uL (3.29-11.43) 05/25/23 13:50 RBC 4.59 10^6/uL (3.85-5.65) 05/25/23 13:50 Hgb 13.30 g/dL (11.27-16.99) 05/25/23 13:50 Hct 43.5 % (36-47) 05/25/23 13:50 MCV 94.8 fl (85-98) 05/25/23 13:50 MCH 29.0 pg (27-33) 05/25/23 13:50 MCHC 30.6 g/dL (30-55) 05/25/23 13:50 RDW 14.2 % (12.1-15.1) 05/25/23 13:50 Plt Count 219 10^3/cmm (157-399) 05/25/23 13:50 MPV 11.3 fL (7.4-10.4) H 05/25/23 13:50 Neut % (Auto) 53.3 % 05/25/23 13:50 Lymph % (Auto) 40.0 % 05/25/23 13:50 Amador % (Auto) 4.5 % 05/25/23 13:50 Eos % (Auto) 2.0 % 05/25/23 13:50 Baso % (Auto) 0.0 % 05/25/23 13:50 Neut # (Auto) 2.38 10^3/uL (1.8-7.7) 05/25/23 13:50 Lymph # (Auto) 1.8 10^3/uL (0.8-4.8) 05/25/23 13:50 Amador # (Auto) 0.2 10^3/uL (0.2-0.9) 05/25/23 13:50 Eos # (Auto) 0.1 10^3/uL (0.0-0.8) 05/25/23 13:50 Baso # (Auto) 0.0 10^3/uL (0.0-0.1) 05/25/23 13:50 Nucleated RBC % (auto) 0 % 05/25/23 13:50 Nucleated RBCs # 0.0 /100WBC 05/25/23 13:50 Sodium 142 mmol/L (136-145) 05/25/23 13:50 Potassium 3.6 mmol/L (3.5-5.1) 05/25/23 13:50 Chloride 105 mmol/L (98-107) 05/25/23 13:50 Carbon Dioxide 21 mmol/L (22-29) L 05/25/23 13:50 Anion Gap 19.6 (5-19) H 05/25/23 13:50 BUN 23 mg/dL (8-23) 05/25/23 13:50 Creatinine 1.1 mg/dL (0.5-0.9) H 05/25/23 13:50 GFR Calculation Not Reportable 05/25/23 13:50 Glucose 156 mg/dL (65-115) H 05/25/23 13:50 Calculated Osmolality 301 mOsm/kg (285-295) H 05/25/23 13:50 Calcium 9.9 mg/dL (8.5-10.5) 05/25/23 13:50 Total Bilirubin 0.6 mg/dL (0.15-1.2) 05/25/23 13:50 AST 21 U/L (0-32) 05/25/23 13:50 ALT 19 U/L (0-33) 05/25/23 13:50 Alkaline Phosphatase 88 U/L (35-105) 05/25/23 13:50 Troponin T Baseline 17 ng/L (0-10) H 05/25/23 13:50 Troponin T 120 Minute 37.23 ng/L (0-10) H 05/25/23 15:25 Delta Troponin T 20.23 ABS# (0-10) H* 05/25/23 15:25 Total Protein 6.2 g/dL (6.6-8.7) L 05/25/23 13:50 Albumin 3.8 g/dL (3.5-5.2) 05/25/23 13:50 Globulin 2.4 g/dL (1.3-4.6) 05/25/23 13:50 Discharge Plan Discharge Admit Provider: Jeanne Rodriguez Clinical Impression: Elevated troponin, Non-sustained ventricular tachycardia Condition: Stable Sign Out Sign Out Data: Patient Sign Out occurred on 05/25/23 at 15:11. Patient's care was discussed, and care was transferred from to Sharif Denise DO. Coding Level of Care Code ED Rodent Exterminator for Joseluis Sadler
[2023-05-25] MEDS: methylPREDNISolone sod succ 125 MG in water for injection-sterile 2 ML 24 MG IVP (13:47)
[2023-05-25] MEDS: famotidine 20 mg/2 mL INJ 40 MG IVP (13:47)
[2023-05-25] MEDS: sodium chloride 0.9% 1,000 ML 999 ML IV (13:49)
--- NOTE | 2023-05-25 14:56 | ECG_ITS ---
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 Measurements Intervals [place] Rate: 67 P: 31 UT: 158 QRS: -19 QRSD: 99 T: -1 QT: 426 QTc: 450 Interpretive Statements SINUS RHYTHM Compared to ECG 12/10/2016 03:59:18 Ventricular premature complex(es) no longer present Electronically Signed On 05-25-2023 17:51:29 CDT by Eleonora Ruby M.D. [id number] f
--- NOTE | 2023-05-25 14:59 | PC.NURSE ---
PT HAD A RUN OF VTACH, EKG ORDERED, PA AWARE
--- NOTE | 2023-05-25 15:01 | ECG_ITS ---
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 Measurements Intervals [place] Rate: 68 P: 5 MS: 178 QRS: -30 QRSD: 98 T: -1 QT: 445 QTc: 474 Interpretive Statements SINUS RHYTHM WITH OCCASIONAL VENTRICULAR PREMATURE COMPLEXES MINIMAL VOLTAGE CRITERIA FOR LVH, CONSIDER NORMAL VARIANT [MEETS CRITERIA IN ONE OF: R(aVL), S(V1), R(V5), R(V5/V6)+S(V1)] SEPTAL MYOCARDIAL INFARCTION , OF INDETERMINATE AGE [40+ ms Q WAVE IN V1/V2] Compared to ECG 05/25/2023 13:36:32 Ventricular premature complex(es) now present Myocardial infarct finding now present Electronically Signed On 05-25-2023 17:52:59 CDT by Eleonora Ruby M.D. [id number]
--- NOTE | 2023-05-25 15:02 | XRR_ITS ---
PROCEDURE INFORMATION: Exam: XR Chest Exam date and time: 05/25/2023 3:27 PM Age: 77 years old Clinical indication: Patient HX: Vtach post bee sting; HX 2016 TECHNIQUE: Imaging protocol: Radiologic exam of the chest. Views: 1 view. COMPARISON: CR XR chest 1V [id number] 12/09/2016 8:38 PM FINDINGS: Lungs: See Heart/Mediastinum finding. Pleural spaces: No pleural effusion. No pneumothorax. Heart/Mediastinum: Lobulated retrocardiac opacity is likely a hiatal hernia. Vasculature: Aortic arch is deviated to the right, similar to prior, likely relating to tortuous aorta. Bones/joints: Subjective bony demineralization. XR/XR chest 1V portable [id number] IMPRESSION: No acute cardiopulmonary abnormality. Stable retrocardiac opacity is likely a sliding hiatal hernia.
[2023-05-25 15:19] LABS: Eosinophils # 0.1 10^3/uL (0.0-0.8); Hematocrit 43.5 % (36-47); Lymphocytes # 1.8 10^3/uL (0.8-4.8); Mean Corpuscular HGB Conc 30.6 g/dL (30-55); Mean Corpuscular Volume 94.8 fl (85-98); Mean Platelet Volume 11.3 fL (7.4-10.4); Monocytes # 0.2 10^3/uL (0.2-0.9); Monocytes % 4.5 %; Neutrophils # 2.38 10^3/uL (1.8-7.7); Neutrophils % 53.3 %; Nucleated Red Blood Cells % 0 %; Platelet Count 219 10^3/cmm (157-399); Red Blood Count 4.59 10^6/uL (3.85-5.65); Red Cell Distribution Width 14.2 % (12.1-15.1); White Blood Count 4.47 10^3/uL (3.29-11.43)
[2023-05-25 15:26] LABS: Alanine Aminotransferase 19 U/L (0-33); Albumin Level 3.8 g/dL (3.5-5.2); Alkaline Phosphatase 88 U/L (35-105); Aspartate Amino Transferase 21 U/L (0-32); Blood Urea Nitrogen 23 mg/dL (8-23); Calcium 9.9 mg/dL (8.5-10.5); Carbon Dioxide 21 mmol/L (22-29); Chloride 105 mmol/L (98-107); Globulin 2.4 g/dL (1.3-4.6); Glucose 156 mg/dL (65-115); Osmolality Calculated 301 mOsm/kg (285-295); Sodium 142 mmol/L (136-145); Total Bilirubin 0.6 mg/dL (0.15-1.2); Total Protein 6.2 g/dL (6.6-8.7); Troponin(5th) Baseline 17 ng/L (0-10)
[2023-05-25 15:32] LABS: Anion Gap 19.6 (5-19); Potassium 3.6 mmol/L (3.5-5.1)
[2023-05-25 16:01] LABS: Troponin 5 2HR 37.23 ng/L (0-10)
[2023-05-25 16:03] LABS: Troponin 5 2HR Delta 20.23 ABS# (0-10)
--- NOTE | 2023-05-25 16:03 | ECG_ITS ---
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 Measurements Intervals [place] Rate: 69 P: 57 MA: 165 QRS: -33 QRSD: 110 T: -2 QT: 404 QTc: 434 Interpretive Statements SINUS RHYTHM WITH OCCASIONAL VENTRICULAR PREMATURE COMPLEXES LEFT AXIS DEVIATION [QRS AXIS < -30] PATTERN CONSISTENT WITH PULMONARY DISEASE MODERATE ST DEPRESSION [0.05+ mV ST DEPRESSION] Compared to ECG 05/25/2023 15:01:09 Left-axis deviation now present ST (T wave) deviation now present Myocardial infarct finding no longer present Electronically Signed On 05-25-2023 17:52:49 CDT by Eleonora Ruby M.D. [id number]
[2023-05-25] MEDS: enoxaparin 80 mg/0.8 mL Syringe SUBCUT ×2 (16:17→18:05)
[2023-05-25] MEDS: nitroglycerin 1 gm/inch oint Pkt 0.5 INCH TOPICAL (16:18)
--- NOTE | 2023-05-25 16:36 | P.HP_ITS ---
Providers/Chief Complaint Admitting Physician: Jeanne Rodriguez MD Primary Care Provider: Julius Potter DO Chief Complaint: bee sting, allergic reaction History of Present Illness Zulma Dash is a 77 year old female who carries history of nonischemic cardiomyopathy, nonobstructive coronary disease, has been on Entresto for low EF with recent improvement in her EF up to 40% follows up with Dr. Chambers outpatient, today was blowing her leaves when she got stung by bees, she has had multiple stings, she started spearing seeing numbness and tingling in her extremities which made her anxious and she went to the urgent care clinic she was not seen right away hence she decided to drive to the ER, in the ER patient had wide QRS complex there was concern for nonsustained V. tach, concern for brief syncopal event however patient is not endorsing 1 she has not noticed any chest pain nausea vomiting shortness of breath. She is living alone, manages her daily activities on her own. Fairly active for her age. Patient sitting that she is DNR/DNI and she signed her living will with PCP Dr. Cardenas noted however patient is chest pain-free Nitropaste removed Blood pressure stable Unifocal PVCs evident on her telemetry Patient was given Benadryl and steroid No signs of anaphylaxis epi was not given Patient is stating that she had a history of atrial flutter but does not take anything other than aspirin Previous angiogram 2016, has history of PVCs Review of Systems Const: Denies: chills Eyes: Denies: change in vision ENMT: Denies: throat pain Card: Denies: chest pain Resp: Denies: dyspnea GI: Denies: abdominal pain : Denies: flank pain Musc: Denies: neck pain Medications/Allergies Home Medications Medication Instructions Recorded Confirmed Last Taken Type aspirin 81 mg tablet,delayed 81 mg PO QDAY 08/19/19 05/25/23 05/25/23 History release (Adult Low Dose Aspirin) atorvastatin 40 mg tablet 40 mg PO QDAY 08/19/19 05/25/23 05/25/23 History furosemide 40 mg tablet 40 mg PO QAM 08/19/19 05/25/23 05/25/23 History lorazepam 0.5 mg tablet 0.5 mg PO TID PRN Anxiety 08/19/19 05/25/23 05/25/23 History lutein 20 mg capsule 20 mg PO QDAY 08/19/19 05/25/23 05/25/23 History metoprolol tartrate 25 mg tablet 25 mg PO BID 08/19/19 05/25/23 05/25/23 History multivitamin 1 tab PO QAM 08/19/19 05/25/23 05/25/23 History pantoprazole 40 mg tablet,delayed 40 mg PO QDAY 08/19/19 05/25/23 05/25/23 History release vitamin B complex (B 1 tab PO QDAY 08/19/19 05/25/23 05/25/23 History Complex-Vitamin B12 tablet) magnesium oxide 400 mg PO BID 04/23/22 05/25/23 05/25/23 History sacubitril 24 mg-valsartan 26 mg 1 tab PO BID #60 tabs 04/24/23 05/25/23 Unknown Rx tablet (Entresto) benazepril 10 mg tablet 10 mg PO DAILY 05/25/23 05/25/23 05/25/23 History calcium carbonate 600 mg-vitamin 1 tab PO DAILY 05/25/23 05/25/23 05/25/23 History D3 5 mcg (200 unit) tablet hydrocodone 5 mg-acetaminophen 325 1 tab PO Q6H PRN Pain 05/25/23 05/25/23 05/24/23 History mg tablet Allergies Allergy/AdvReac Type Severity Reaction Status Date / Time amoxicillin [From Augmentin] Allergy Intermediate hives Verified 05/25/23 13:24 clavulanic acid Allergy Intermediate hives Verified 05/25/23 13:24 [From Augmentin] insect venom Allergy Unknown unknown Verified 05/25/23 13:24 Sulfa (Sulfonamide Allergy Unknown unknown Verified 05/25/23 13:24 Antibiotics) PFSH Acute PFSH: Medical History Cardiomyopathy Patient had a cardiac catheterization on 01/29/2016. She was found to have no significant obstructive coronary artery disease. Ejection fraction at that time was 30%. Subsequently the ejection fraction improved to 40%, by echocardiogram Diverticulosis GERD (gastroesophageal reflux disease) Hyperlipidemia Hypertension Osteoarthritis Other specified cardiac arrhythmias Surgical History H/O cataract extraction History of hysterectomy History of knee replacement History of total hip arthroplasty Family History Brother CAD (coronary artery disease) Cancer Mother CAD (coronary artery disease) Cancer Father Cancer Other Hypertension Denies family history of Diabetes Clotting disorder Dementia Chronic kidney disease (CKD) Suicide Anesthesia complication Bleeding disorder Lung disease Stroke Social History Smoking and tobacco/nicotine status: never used tobacco/nicotine Alcohol intake: current Alcohol intake frequency: holidays/special occasions only Substance/Drug Use: never Vitals/I&O/Wt Last Vital Signs Pulse 73 05/25/23 16:26 Resp 20 H 05/25/23 16:26 BP 128/67 05/25/23 16:26 Pulse Ox 97 05/25/23 16:26 O2 Del Method Room Air 05/25/23 15:54 05/25/23 05/25/23 05/25/23 06:59 14:59 22:59 Intake Total 1002 / 1002 Balance 1002 / 1002 Weight last 48 hrs Weight 83.915 kg Physical Exam Narrative: Hyperemia around sting bites No signs of anaphylaxis No angioedema Unifocal PVCs Sinus rhythm Awake and alert Pleasant cooperative No crackles or wheezing No audible stridor Afebrile Pleasant and cooperative S1, S2 Abdomen soft Data 05/25/23 13:50 05/25/23 13:50 Other data: ardiac Arteries and Lesion Findings LMCA: Medium caliber vessel Extremely short vessel which bifurcates to the LAD and circumflex artery No significant stenotic lesions LAD: Medium caliber vessel It appears to wrap around the LV apex minimally The artery appears to be tortuous proximally and gives a large diagonal branch. The lead was first septal chief juvenile probation officer also was found to be a relatively large vessel No significant stenotic lesions were noted. LCx: Medium caliber nondominant vessel No significant stenotic lesions RCA: Medium caliber vessel Dominant vessel. No significant stenotic lesions A&P Assessment and plan (1) Elevated troponin: (2) Non-sustained ventricular tachycardia: (3) Bee sting reaction: (4) PVC (premature ventricular contraction): (5) Cardiomyopathy: Qualifiers: Cardiomyopathy type: ischemic Qualified Code(s): I25.5 - Ischemic cardiomyopathy Plan Bee sting reaction No signs of anaphylaxis Monitor on telemetry Received steroids, No need to repeat steroid dose at this time No need of repeating Benadryl Can do management Non-STEMI? We will start patient on aspirin Plavix and therapeutic Lovenox patient is chest pain-free, Cardiology consulted for wide QRS keep potassium of 4 magnesium of 2 PVCs noted in the ER Patient is hemodynamically stable Can put her on metoprolol continue magnesium I would not repeat echo which was done recently Considering history of paroxysmal A-fib with PVCs, rule out underlying bundle branch block which can present with wide QRS PVCs Check TSH and D-dimer Monitor closely on telemetry Cardiac diet Cardiology consulted Attestations Medical Necessity Statement*: Anticipating discharge within 48 hours Diagnoses Elevated troponin R79.89 Non-sustained ventricular tachycardia I47.29 Bee sting reaction T63.441A PVC (premature ventricular contraction) I49.3 Cardiomyopathy I25.5 Cardiomyopathy type: ischemic
[2023-05-25 17:03] LABS: D Dimer 1.78 ug/mLFEU (0-0.59)
[2023-05-25 17:41] LABS: Thyroid Stimulating Hormone 3.28 uIU/mL (0.27-4.20)
[2023-05-25] MEDS: magnesium oxide 400 mg tablet PO (18:05)
[2023-05-25] MEDS: potassium chloride ER 20 mEq Tablet 40 MEQ PO (18:05)
[2023-05-25] MEDS: aspirin 325 mg EC Tablet PO (18:05)
[2023-05-25] MEDS: clopidogrel 300 mg Tablet PO (18:05)
[2023-05-25] MEDS: metoprolol tartrate 25 mg Tablet PO (18:05)
[2023-05-25 20:24] LABS: Troponin 5 6HR 36.89 ng/L (0-10)
[2023-05-25 20:40] LABS: Troponin 5 6HR Delta 19.89 ng/L (0-12)
[2023-05-26] MEDS: LORazepam 0.5 mg Tablet PO (01:45)
[2023-05-26 04:00] VITALS: BP 111/58; PULSE 70; RESP 25; TEMP 36.9; O2SAT 93
[2023-05-26 04:17] LABS: Anion Gap 16.8 (5-19); Blood Urea Nitrogen 25 mg/dL (8-23); C Reactive Protein 10.8 mg/L (0.0-4.9); Calcium 9.4 mg/dL (8.5-10.5); Carbon Dioxide 23 mmol/L (22-29); Chloride 107 mmol/L (98-107); Glucose 155 mg/dL (65-115); Magnesium 2.2 mg/dL (1.7-2.3); Osmolality Calculated 302 mOsm/kg (285-295); Potassium 4.8 mmol/L (3.5-5.1); Sodium 142 mmol/L (136-145)
[2023-05-26] MEDS: FUROsemide 40 mg Tablet PO (05:43)
--- NOTE | 2023-05-26 05:52 | P.CONIM_ITS ---
Providers/Reason For Consult Consulting Physician/Specialty*: Dr. Ruby, Cardiology Reason for Consult*: NSVT, h/o cardiomyopathy, elevated troponin Attending Physician: Jeanne Rodriguez MD Primary Care Provider: Julius Potter DO History of Present Illness History of Present Illness Zulma Dash is a 77 year old female with past medical history of hypertension , cardiomyopathy (LVEF=30%-->43%), paroxysmal atrial fibrillation/flutter, h/o PVC's, h/o GI bleed in November 2016, GERD and HLD. She underwent cardiac catheterization in 01/2016 for CHF and elevated troponin and was found to have normal coronaries Yesterday, she was blowing leaves when she got stung by bees and started seeing numbness and tingling in her extremities which made her anxious and she went to ER. She was treated for that. While she was in the ER, she had NSVT on telemet ry without any symptoms. No chest pain, nausea, vomiting , leg swelling and shortness of breath.? She is DNR/DNI and she signed her living will with PCP. EKG with sinus rhythm with isolated PVC'S. possible old septal OH. No significant ST-T wave changes. Troponin T 17->37-->37. She tells me she has not taken entresto. She denies any chest pain, exertional SOB. 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 She lost her 10/2022. She tells me she wore a monitor several years back. I am unable to find that. .? Review of Systems Const: Denies: fever(s), chills, change in appetite, change in weight, fatigue or malaise Eyes: Denies: change in vision ENMT: Denies: throat pain, swelling of lips/tongue, oral sores, bleeding gums, nasal congestion or epistaxis Card: Denies: chest pain or edema Resp: Denies: dyspnea or chest congestion GI: Denies: abdominal pain, nausea, vomiting, hematemesis, heartburn, diarrhea, constipation, change in bowel habits, hematochezia or melena : Denies: difficulty voiding, dysuria, oliguria or hematuria Musc: Denies: back pain, extremity swelling, joint pain or muscle weakness Skin/Breast: Reports: rash, erythema and other (wasp bites on neck and left arm) Neuro: Reports: headache(s) Psych: Denies: anxiety, depression or irritability Endo: Denies: tired all the time Jesus/Lymph: Denies: easy bruising, easy bleeding, petechiae or purpura All/Imm: Denies: throat swelling, tongue swelling or acute wheezing Medications/Allergies Home Medications Medication Instructions Recorded Confirmed Last Taken Type aspirin 81 mg tablet,delayed 81 mg PO QDAY 08/19/19 05/25/23 05/25/23 History release (Adult Low Dose Aspirin) atorvastatin 40 mg tablet 40 mg PO QDAY 08/19/19 05/25/23 05/25/23 History furosemide 40 mg tablet 40 mg PO QAM 08/19/19 05/25/23 05/25/23 History lorazepam 0.5 mg tablet 0.5 mg PO TID PRN Anxiety 08/19/19 05/25/23 05/25/23 History lutein 20 mg capsule 20 mg PO QDAY 08/19/19 05/25/23 05/25/23 History metoprolol tartrate 25 mg tablet 25 mg PO BID 08/19/19 05/25/23 05/25/23 History multivitamin 1 tab PO QAM 08/19/19 05/25/23 05/25/23 History pantoprazole 40 mg tablet,delayed 40 mg PO QDAY 08/19/19 05/25/23 05/25/23 History release vitamin B complex (B 1 tab PO QDAY 08/19/19 05/25/23 05/25/23 History Complex-Vitamin B12 tablet) magnesium oxide 400 mg PO BID 04/23/22 05/25/23 05/25/23 History sacubitril 24 mg-valsartan 26 mg 1 tab PO BID #60 tabs 04/24/23 05/25/23 Unknown Rx tablet (Entresto) benazepril 10 mg tablet 10 mg PO DAILY 05/25/23 05/25/23 05/25/23 History calcium carbonate 600 mg-vitamin 1 tab PO DAILY 05/25/23 05/25/23 05/25/23 History D3 5 mcg (200 unit) tablet hydrocodone 5 mg-acetaminophen 325 1 tab PO Q6H PRN Pain 05/25/23 05/25/23 05/24/23 History mg tablet Allergies Allergy/AdvReac Type Severity Reaction Status Date / Time amoxicillin [From Augmentin] Allergy Intermediate hives Verified 05/25/23 13:24 clavulanic acid Allergy Intermediate hives Verified 05/25/23 13:24 [From Augmentin] insect venom Allergy Unknown unknown Verified 05/25/23 13:24 Sulfa (Sulfonamide Allergy Unknown unknown Verified 05/25/23 13:24 Antibiotics) Current Medications Generic Name Dose Route Start Last Admin Trade Name Freq PRN Reason Stop Dose Admin Enoxaparin Sodium 80 mg 05/25/23 18:00 05/25/23 18:05 Enoxaparin 80 Mg/0.8 Ml Syringe SUBCUT 80 mg BID AUDI Administration Furosemide 40 mg 05/26/23 06:00 05/26/23 05:43 Furosemide 40 Mg Tablet PO 40 mg QAM AUDI Administration Lorazepam 0.5 mg 05/25/23 17:08 05/26/23 01:45 FLAVOR MAKER Lorazepam 0.5 Mg Tablet PO 0.5 mg TID PRN Administration Anxiety Magnesium Oxide 400 mg 05/25/23 18:00 05/25/23 18:05 Magnesium Oxide 400 Mg Tablet PO 400 mg BID AUDI Administration Metoprolol Tartrate 25 mg 05/25/23 18:00 05/25/23 18:05 Metoprolol Tartrate 25 Mg Tablet PO 25 mg BID AUDI Administration PFSH Acute PFSH: Medical History (Updated 05/26/23 @ 06:25 by Eleonora Ruby MD) Cardiomyopathy Patient had a cardiac catheterization on 01/29/2016. She was found to have no significant obstructive coronary artery disease. Ejection fraction at that time was 30%. Subsequently the ejection fraction improved to 40%, by echocardiogram Diverticulosis GERD (gastroesophageal reflux disease) Hx of myocardial infarction Hyperlipidemia Hypertension Osteoarthritis Other specified cardiac arrhythmias Surgical History (Updated 05/26/23 @ 06:25 by Eleonora Ruby MD) H/O cataract extraction History of hysterectomy History of knee replacement History of right hip replacement History of tonsillectomy and adenoidectomy History of total hip arthroplasty Family History Brother CAD (coronary artery disease) Cancer Mother CAD (coronary artery disease) Cancer Father Cancer Other Hypertension Denies family history of Diabetes Clotting disorder Dementia Chronic kidney disease (CKD) Suicide Anesthesia complication Bleeding disorder Lung disease Stroke Social History Smoking and tobacco/nicotine status: never used tobacco/nicotine Alcohol intake: current Alcohol intake frequency: holidays/special occasions only Substance/Drug Use: never Vitals/I&O/Wt Last Vital Signs Temp 98.4 F 05/26/23 04:00 Pulse 70 05/26/23 04:00 Resp 25 H 05/26/23 04:00 BP 111/58 05/26/23 04:00 Pulse Ox 93 05/26/23 04:00 O2 Del Method Room Air 05/26/23 04:00 05/25/23 05/25/23 05/26/23 14:59 22:59 05:59 Intake Total 1202 / 1202 900 / 2102 Balance 1202 / 1202 900 / 2102 Weight last 48 hrs Weight 185 lb Physical Exam Narrative: GENERAL: Averagely built and averagely nourished in no acute distress HEENT: Extraocular movement intact. No pallor or icterus. NECK: central trachea, No JVD No carotid bruit. CARDIOVASCULAR SYSTEM: S1-S2 regular. No murmur rubs or gallops. RESPIRATORY SYSTEM: Chest clear to auscultation. No wheezes rhonchi or rubs heard. No use of accessory muscles. ABDOMEN: Soft, nontender and nondistended. Normal bowel sounds present. EXTREMITIES: No cyanosis or edema. No signs of chronic venous insufficiency. 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 No focal neurological deficits. SKIN: Normal turgor and temperature. PSYCH: Normal insight and judgment. Data 05/25/23 13:50 05/26/23 03:03 Other data: TTE (04/01/23) CONCLUSIONS ?Diffuse hypokinesia of the left ventricle with an ejection ?fraction of 43%.? ?Mildly dilated LV cavity. ?Mild biatrial enlargementThickened mitral valve. ?Kgur-[id number] aortic valve regurgitation. ?Trace tricuspid valve regurgitation. ?Estimated pulmonary artery peak systolic pressure, probably ?within normal meds. ?There is no pericardial effusion. ?Compared to the study from 11/16/2021, there may not be a ?significant change 11/16/21 Echo? ?Mildly dilated left ventricle with an ejection fraction of ?around 45%.? Diffuse hypokinesia of the left ventricle. ?Both atria, upper limit of normal size. ?Trace to mild mitral valve regurgitation. ?[id number] aortic valve regurgitation. ?Mild tricuspid valve regurgitation. ?Mild pulmonary valve regurgitation. ?Estimated pulmonary artery peak systolic pressure 37 mmHg ?Compared to the study from 04/30/2016, there is slight worsening ?of the aortic regurgitation, otherwise no significant change. LEFT HEARTH CATHETERIZATION 01/30/16 Severe diffuse hypokinesia of the left ventricle with ejection fraction of 30% No significant obstructive coronary artery disease Slightly elevated LVEDP of 20 mmHg A&P Assessment and plan (1) Non-sustained ventricular tachycardia: Normal electrolytes and known h/o PVC's. asymptomatic NSVT. She is already on beta blockers -I do not believe she warranted this admission or further ischemia testing at this time. -May consider event monitor to assess PVC burden on discharge as no prior. -increase metoprolol tartrate 37.5 mg BID if tolerated (2) PVC (premature ventricular contraction): (3) Elevated troponin: No symptoms and this is not NSTEMI -d/c lovenox and plavix (4) Cardiomyopathy: NICM Qualifiers: Cardiomyopathy type: ischemic Qualified Code(s): I25.5 - Ischemic cardiomyopathy (5) Hypertension: Qualifiers: Hypertension type: essential hypertension Qualified Code(s): I10 - Essential (primary) hypertension (6) Hyperlipidemia: Qualifiers: Hyperlipidemia type: mixed hyperlipidemia Qualified Code(s): E78.2 - Mixed hyperlipidemia Coding Level of Care Code 93351 Diagnoses Non-sustained ventricular tachycardia I47.29 PVC (premature ventricular contraction) I49.3 Elevated troponin R79.89 Cardiomyopathy I25.5 Cardiomyopathy type: ischemic Hypertension I10 Hypertension type: essential hypertension Hyperlipidemia E78.2 Hyperlipidemia type: mixed hyperlipidemia
[2023-05-26 06:00] VITALS: PULSE 68
--- NOTE | 2023-05-26 06:14 | CTR_ITS ---
PROCEDURE INFORMATION: Exam: CTA Chest With Contrast Exam date and time: 05/26/2023 9:51 AM Age: 77 years old Clinical indication: Dyspnea; Additional info: Svt TECHNIQUE: Imaging protocol: Computed tomographic angiography of the chest with contrast. Exam focused on the arteries. 3D rendering (Not supervised by radiologist): MIP and/or 3D reconstructed images were created by the technologist. Radiation optimization: All CT scans at this facility use at least one of these dose optimization techniques: automated exposure control; mA and/or kV adjustment per patient size (includes targeted exams where dose is matched to clinical indication); or iterative reconstruction. Contrast material: OMNI 350; Contrast volume: 80 ml; Contrast route: INTRAVENOUS (IV); REPORTING DATA: Count of CT and Cardiac NM exams in prior 12 months: This patient has received 0 known CTs and 0 known cardiac nuclear medicine studies in the 12 months prior to the current study. COMPARISON: 1. CR (CHEST, ) 05/25/2023 3:27 PM 2. CTA Chest-Pulmonary Emb [id number] 01/28/2016 2:56 AM RADIATION DOSE METRICS: Total DLP (mGy-cm): 394.98 FINDINGS: Pulmonary arteries: The pulmonary arteries are adequately opacified for evaluation to the subsegmental level. There is no filling defect to suggest embolism. 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 Aorta: There is mild aortic atherosclerotic disease. 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 This is increased from 13 mm on 01/28/2016. Lungs: There is dependent atelectasis in the right lower lobe associated with minimal peripheral bronchial mucous plugging. There is no consolidation. Pleural spaces: There is no pleural effusion or pneumothorax. Heart: There is mild cardiac enlargement. There is trace pericardial effusion. Lymph nodes: There is no mediastinal or hilar lymphadenopathy. Diaphragm: Large fluid distended hiatal hernia. Gallbladder and bile ducts: The visible portion of the common bile duct is markedly dilated measuring up to 17 mm diameter, increased from 14 mm on 01/28/2016. Stomach and bowel: The intra-abdominal portion of the stomach is fluid distended. Bones/joints: Bones are unremarkable. Soft tissues: The extrathoracic soft tissues are unremarkable. CT/CT angio chest PE protcl [id number] IMPRESSION: 1. No pulmonary embolism. 2. 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 No visible intraluminal thrombus. 3. Proximal common bile duct dilation, incompletely imaged. Mildly increased since 01/28/2016. 4. Large sliding-type hiatal hernia. There is fluid distention of intrathoracic and intra-abdominal portions of the stomach. 5. Incidental findings above.
--- NOTE | 2023-05-26 06:16 | USR_ITS ---
PROCEDURE INFORMATION: Exam: US Duplex Lower Extremity Veins, Bilateral Exam date and time: 05/26/2023 6:45 AM Age: 77 years old Clinical indication: Condition or disease; Other: Svt TECHNIQUE: Imaging protocol: Real-time duplex ultrasound of the bilateral extremities with 2-D sanabria scale, color Doppler flow and spectral waveform analysis including responses to compression and other maneuvers (when performed) with image documentation. Complete exam focused on the lower extremity veins. COMPARISON: No relevant prior studies available. FINDINGS: Right deep veins: Unremarkable. The common femoral, femoral, proximal profunda femoral and popliteal veins are patent without thrombus. Normal Doppler waveforms. Normal compressibility and/or augmentation response. Left deep veins: Unremarkable. The common femoral, femoral, proximal profunda femoral and popliteal veins are patent without thrombus. Normal Doppler waveforms. Normal compressibility and/or augmentation response. Superficial veins: Bilateral saphenofemoral junctions are patent without thrombus. Soft tissues: Wilson cyst in the left popliteal fossa measures 4.7 x 4.0 x 2.6 cm. US/CV venous duplex [facility] [id number] IMPRESSION: No deep venous thrombosis.
--- NOTE | 2023-05-26 08:11 | P.DS_ITS ---
Discharge Providers Date of Admission: 05/25/23 15:35 Date of Discharge: May 26, 2023 Attending Provider at Admission: Jeanne Rodriguez MD Attending Provider at Discharge: Jeanne Rodriguez MD Primary Care Provider: Julius Potter DO Diagnoses at Discharge Discharge Diagnosis (1) Non-sustained ventricular tachycardia: Status: Acute (2) PVC (premature ventricular contraction): Status: Acute (3) Elevated troponin: Status: Acute (4) Cardiomyopathy: Status: Acute Qualifiers: Cardiomyopathy type: ischemic Qualified Code(s): I25.5 - Ischemic ca rdiomyopathy Permanent problem details: Patient had a cardiac catheterization on 01/29/2016. She was found to have no significant obstructive coronary artery disease. Ejection fraction at that time was 30%. Subsequently the ejection fraction improved to 40%, by echocardiogram (5) Hypertension: Status: Acute Qualifiers: Hypertension type: essential hypertension Qualified Code(s): I10 - Essential (primary) hypertension (6) Hyperlipidemia: Status: Acute Qualifiers: Hyperlipidemia type: mixed hyperlipidemia Qualified Code(s): E78.2 - Mixed hyperlipidemia Reason for Visit Reason for Visit: bee sting, allergic reaction Hospital Course Hospital Course 77-year female with history of PVCs, atrial flutter in the past, hypertension, atherosclerotic coronary disease presented to hospital after multiple bee stings and not feeling good, she got anxious and scared because she lives alone, there was concern for nonsustained V. tach for delta troponin she. In the ER thus when she was admitted, put on ACS protocol, cardiology was consulted, she has type II VT, no further work-up was recommended, patient was asked to continue her medications and stop taking BenzePrO because she is taking Entresto she did not show any signs of edge edema anaphylaxis She remained afebrile, sinus rhythm with unifocal PVCs she is already on metoprolol for her asymptomatic nonsustained V. tach. Will do event monitor for 2 weeks at the time of discharge. She follows up with Dr. Chambers outpatient. Considering high D-dimer I requested venous Doppler and CTA chest before she is discharged. Potassium 4.8, magnesium 2.2 Physical Exam Narrative: Sinus rhythm Unifocal PVCs Awake and alert GCS 15 Pleasant Cooperative Euvolemic Discharge Data Studies Completed and Pending Completed Studies During Hospitalization Category Date Time Status XR chest 1V portable [id number] Stat Exams 05/25/23 15:02 [place] [id number] Routine Ultrasound 05/26/23 06:16 Taken Pending at discharge Category Date Time Status CTA chest [CT angio chest PE protcl [id number]] Routine Cat Scan 05/26/23 06:14 Ordered Radiology Impressions Chest X-Ray 05/25/23 15:02 IMPRESSION: No acute cardiopulmonary abnormality. Stable retrocardiac opacity is likely a sliding hiatal hernia. Venous Duplex 05/26/23 06:16 IMPRESSION: No deep venous thrombosis. Laboratory Results WBC 4.47 10^3/uL (3.29-11.43) 05/25/23 13:50 RBC 4.59 10^6/uL (3.85-5.65) 05/25/23 13:50 Hgb 13.30 g/dL (11.27-16.99) 05/25/23 13:50 Hct 43.5 % (36-47) 05/25/23 13:50 MCV 94.8 fl (85-98) 05/25/23 13:50 MCH 29.0 pg (27-33) 05/25/23 13:50 MCHC 30.6 g/dL (30-55) 05/25/23 13:50 RDW 14.2 % (12.1-15.1) 05/25/23 13:50 Plt Count 219 10^3/cmm (157-399) 05/25/23 13:50 MPV 11.3 fL (7.4-10.4) H 05/25/23 13:50 Neut % (Auto) 53.3 % 05/25/23 13:50 Lymph % (Auto) 40.0 % 05/25/23 13:50 [place] % (Auto) 4.5 % 05/25/23 13:50 Eos % (Auto) 2.0 % 05/25/23 13:50 Baso % (Auto) 0.0 % 05/25/23 13:50 Neut # (Auto) 2.38 10^3/uL (1.8-7.7) 05/25/23 13:50 Lymph # (Auto) 1.8 10^3/uL (0.8-4.8) 05/25/23 13:50 [place] # (Auto) 0.2 10^3/uL (0.2-0.9) 05/25/23 13:50 Eos # (Auto) 0.1 10^3/uL (0.0-0.8) 05/25/23 13:50 Baso # (Auto) 0.0 10^3/uL (0.0-0.1) 05/25/23 13:50 Nucleated RBC % (auto) 0 % 05/25/23 13:50 Nucleated RBCs # 0.0 /100WBC 05/25/23 13:50 D-Dimer 1.78 ug/mLFEU (0-0.59) H 05/25/23 13:50 Sodium 142 mmol/L (136-145) 05/26/23 03:03 Potassium 4.8 mmol/L (3.5-5.1) 05/26/23 03:03 Chloride 107 mmol/L (98-107) 05/26/23 03:03 Carbon Dioxide 23 mmol/L (22-29) 05/26/23 03:03 Anion Gap 16.8 (5-19) 05/26/23 03:03 BUN 25 mg/dL (8-23) H 05/26/23 03:03 Creatinine 1.0 mg/dL (0.5-0.9) H 05/26/23 03:03 GFR Calculation Not Reportable 05/26/23 03:03 Glucose 155 mg/dL (65-115) H 05/26/23 03:03 Calculated Osmolality 302 mOsm/kg (285-295) H 05/26/23 03:03 Calcium 9.4 mg/dL (8.5-10.5) 05/26/23 03:03 Magnesium 2.2 mg/dL (1.7-2.3) 05/26/23 03:03 Total Bilirubin 0.6 mg/dL (0.15-1.2) 05/25/23 13:50 AST 21 U/L (0-32) 05/25/23 13:50 ALT 19 U/L (0-33) 05/25/23 13:50 Alkaline Phosphatase 88 U/L (35-105) 05/25/23 13:50 Troponin T Baseline 17 ng/L (0-10) H 05/25/23 13:50 Troponin T 120 Minute 37.23 ng/L (0-10) H 05/25/23 15:25 Delta Troponin T 20.23 ABS# (0-10) H* 05/25/23 15:25 Troponin T Hi Sens 6Hr 36.89 ng/L (0-10) H 05/25/23 19:27 Troponin T Hi Sens 6Hr Delta 19.89 ng/L (0-12) H* 05/25/23 19:27 C-Reactive Protein 10.8 mg/L (0.0-4.9) H 05/26/23 03:03 Total Protein 6.2 g/dL (6.6-8.7) L 05/25/23 13:50 Albumin 3.8 g/dL (3.5-5.2) 05/25/23 13:50 Globulin 2.4 g/dL (1.3-4.6) 05/25/23 13:50 TSH 3.28 uIU/mL (0.27-4.20) 05/25/23 13:50 Vitals Last Vital Signs Temp 98.4 F 05/26/23 04:00 Pulse 68 05/26/23 06:00 Resp 25 H 05/26/23 04:00 BP 111/58 05/26/23 04:00 Pulse Ox 93 05/26/23 04:00 O2 Del Method Room Air 05/26/23 04:00 Discharge Plan Discharge Patient Disposition: Home Condition: Stable Prescriptions: Continued lorazepam 0.5 mg tablet 0.5 mg PO TID PRN (Reason: Anxiety) metoprolol tartrate 25 mg tablet 25 mg PO BID atorvastatin 40 mg tablet 40 mg PO QDAY lutein 20 mg capsule 20 mg PO QDAY aspirin [Adult Low Dose Aspirin] 81 mg tablet,delayed release (DR/EC) 81 mg PO QDAY vitamin B complex [B Complex-Vitamin B12] Tablet 1 tab PO QDAY furosemide 40 mg tablet 40 mg PO QAM multivitamin Tablet 1 tab PO QAM pantoprazole 40 mg tablet,delayed release (DR/EC) 40 mg PO QDAY magnesium oxide 400 mg magnesium tablet 400 mg PO BID Entresto 24-26 mg tablet 1 tab PO BID Qty: 60 0RF Rx Instructions: Stop benazepril 3 days prior to starting this medication hydrocodone-acetaminophen 5-325 mg tablet 1 tab PO Q6H PRN (Reason: Pain) calcium carbonate-vitamin D3 600 mg-5 mcg (200 unit) Tablet 1 tab PO DAILY Discontinued benazepril 10 mg tablet 10 mg PO DAILY Discharge Orders: Discharge Order (Routine); Ordered 05/26/23 Ordered By: Jeanne Rodriguez Other Ambulatory Orders: MCT/Event Monitor 7 Days (Routine) Timeframe: 2 Weeks Facility: [facility] - Location: Radiology Ordered By: Jeanne Rodriguez Referrals: Promise Peralta FNP [Nurse Practitioner] - ([facility] will contact you with an appointment for an ay Event Monitor. If you have not heard from them by Flora blanco. Please call ) Julius Potter, [Primary Care Provider] - (We have notified your physician's clinic of the need for a follow-up appointment to be scheduled. If you have not heard from them within the next 2 business days, please call them directly. You may also reach out to our corporate training manager at [phone] and she can assist you.) Patient Instructions: Opioid Safety Discharge Attestations Time Spent in Discharge Care*: greater than 30 min Quality Metrics Clinical Quality Measures [ No reported AMI, CVA or VTE this stay] Coding Level of Care Code Acute Code for Chg Fwd Diagnoses Non-sustained ventricular tachycardia I47.29 PVC (premature ventricular contraction) I49.3 Elevated troponin R79.89 Cardiomyopathy I25.5 Cardiomyopathy type: ischemic Hypertension I10 Hypertension type: essential hypertension Hyperlipidemia E78.2 Hyperlipidemia type: mixed hyperlipidemia
[2023-05-26 08:29] VITALS: PULSE 77; RESP 16; O2SAT 95
[2023-05-26] MEDS: aspirin 81 mg EC Tablet PO (08:33)
[2023-05-26] MEDS: pantoprazole DR 40 mg Tablet PO (08:34)
[2023-05-26] MEDS: metoprolol tartrate 25 mg Tablet PO (08:34)
[2023-05-26] MEDS: enoxaparin 80 mg/0.8 mL Syringe SUBCUT (08:34)
[2023-05-26] MEDS: atorvastatin 40 mg Tablet PO (08:34)
[2023-05-26] MEDS: clopidogrel 75 mg Tablet PO (08:34)
[2023-05-26] MEDS: magnesium oxide 400 mg tablet PO (08:34)
[2023-05-26] MEDS: iohexol 350 mg/mL 500 mL Btl (per mL) IV (08:59)
[2023-05-26 09:29] VITALS: BP 113/73; PULSE 79; RESP 19; O2SAT 94
[2023-05-26 11:35] VITALS: BP 112/68; PULSE 70; RESP 20; O2SAT 94
== END 2023-05-26 11:58 | disposition home or self-care (01) ==
LOC: ER 15:28 → CSU 16:10
PROVIDERS: Physician Assistant; Admitting Provider Internal Medicine; Emergency Provider Family Medicine; Family Provider Internal Medicine; PCP Internal Medicine; Visit Provider Internal Medicine
DX: I47.29 Other ventricular tachycardia (principal); I49.3 Ventricular premature depolarization; R79.89 Other specified abnormal findings of blood chemistry; I25.5 Ischemic cardiomyopathy; I10 Essential (primary) hypertension; E78.2 Mixed hyperlipidemia; I25.10 Atherosclerotic heart disease of native coronary artery without angina pectoris; W57.XXXA Bitten or stung by nonvenomous insect and other nonvenomous arthropods, initial encounter
CPT/HCPCS: 36415; 71045; 71046; 71275; 80048; 80053; 83735; 84443; 84484; 85025; 85378; 86140; 93005; 93970; 96372; 96374; 96375; 99285; G0378; J1650; J2930; J3490; J7030; Q9967

== ENCOUNTER → 2023-06-05 10:27 | Outpatient (BNVA) | payer MEDICARE, BC, SELFPAY | PROVIDERS: Family Provider Internal Medicine; PCP Internal Medicine; Visit Provider Nurse Practitioner Family | DX: I49.8 Other specified cardiac arrhythmias (principal) | CPT/HCPCS: 99213 ==

== ENCOUNTER 2023-07-23 11:21 | Outpatient (RCR) | payer SELFPAY | END 2023-08-21 23:59 | disposition home or self-care (01) | LOC: CR 11:21 | PROVIDERS: Family Provider Internal Medicine; PCP Internal Medicine; Referring Provider Internal Medicine Cardiovascular Disease; Visit Provider Internal Medicine Cardiovascular Disease | DX: I25.2 Old myocardial infarction (principal) ==

== ENCOUNTER 2023-08-22 14:12 | Outpatient (RCR) | payer SELFPAY | END 2023-09-19 23:59 | disposition home or self-care (01) | LOC: CR 14:12 | PROVIDERS: Family Provider Internal Medicine; PCP Internal Medicine; Referring Provider Internal Medicine Cardiovascular Disease; Visit Provider Internal Medicine Cardiovascular Disease | DX: I25.2 Old myocardial infarction (principal) ==

== ENCOUNTER → 2023-09-19 11:45 | Outpatient (BNVA) | payer MEDICARE, BC, SELFPAY | PROVIDERS: Family Provider Internal Medicine; PCP Internal Medicine; Visit Provider Internal Medicine Cardiovascular Disease | DX: Z53.9 Procedure and treatment not carried out, unspecified reason (principal) ==

== ENCOUNTER 2023-09-23 15:09 | Outpatient (RCR) | payer SELFPAY | END 2023-10-20 23:59 | disposition home or self-care (01) | LOC: CR 15:09 | PROVIDERS: Family Provider Internal Medicine; PCP Internal Medicine; Referring Provider Internal Medicine Cardiovascular Disease; Visit Provider Internal Medicine Cardiovascular Disease | DX: I25.2 Old myocardial infarction (principal) ==

== ENCOUNTER → 2023-10-17 12:47 | Outpatient (BNVA) | payer MEDICARE, BC, SELFPAY | PROVIDERS: Family Provider Internal Medicine; PCP Internal Medicine; Visit Provider Nurse Practitioner Family | DX: I25.5 Ischemic cardiomyopathy (principal); I10 Essential (primary) hypertension | CPT/HCPCS: 36415; 80048; 83880; 99214 ==

== ENCOUNTER 2023-10-23 08:19 | Outpatient (RCR) | payer SELFPAY | END 2023-11-19 23:59 | disposition home or self-care (01) | LOC: CR 08:19 | PROVIDERS: Family Provider Internal Medicine; PCP Internal Medicine; Referring Provider Internal Medicine Cardiovascular Disease; Visit Provider Internal Medicine Cardiovascular Disease | DX: I25.2 Old myocardial infarction (principal) ==

== ENCOUNTER → 2023-11-15 08:12 | Outpatient (BNVA) | payer MEDICARE, BC, SELFPAY | PROVIDERS: Family Provider Internal Medicine; PCP Internal Medicine; Visit Provider Physician Assistant | DX: M17.12 Unilateral primary osteoarthritis, left knee (principal) | CPT/HCPCS: 20610; 73560; 73565; 99213 ==

== ENCOUNTER 2023-11-21 14:05 | Outpatient (RCR) | payer SELFPAY | END 2023-12-20 23:59 | disposition home or self-care (01) | LOC: CR 14:05 | PROVIDERS: Family Provider Internal Medicine; PCP Internal Medicine; Referring Provider Internal Medicine Cardiovascular Disease; Visit Provider Internal Medicine Cardiovascular Disease | DX: I25.2 Old myocardial infarction (principal) ==

== ENCOUNTER 2023-12-23 14:00 | Outpatient (RCR) | payer SELFPAY | END 2024-01-19 23:59 | disposition home or self-care (01) | LOC: CR 14:00 | PROVIDERS: Family Provider Internal Medicine; PCP Internal Medicine; Referring Provider Internal Medicine Cardiovascular Disease; Visit Provider Internal Medicine Cardiovascular Disease | DX: I25.2 Old myocardial infarction (principal) ==

== ENCOUNTER 2024-01-21 15:36 | Outpatient (RCR) | payer SELFPAY | END 2024-02-19 23:59 | disposition home or self-care (01) | LOC: CR 15:36 | PROVIDERS: Family Provider Internal Medicine; PCP Internal Medicine; Referring Provider Internal Medicine Cardiovascular Disease; Visit Provider Internal Medicine Cardiovascular Disease | DX: I25.2 Old myocardial infarction (principal) ==

== ENCOUNTER 2024-02-20 14:10 | Outpatient (RCR) | payer SELFPAY | END 2024-03-26 09:24 | disposition home or self-care (01) | LOC: CR 14:10 | PROVIDERS: Family Provider Internal Medicine; PCP Internal Medicine; Referring Provider Internal Medicine Cardiovascular Disease; Visit Provider Internal Medicine Cardiovascular Disease | DX: I25.2 Old myocardial infarction (principal) ==

== ENCOUNTER → 2024-03-25 11:25 | Outpatient (BNVA) | payer MEDICARE, BC, SELFPAY | PROVIDERS: Family Provider Internal Medicine; PCP Internal Medicine; Visit Provider Internal Medicine Cardiovascular Disease | DX: I42.0 Dilated cardiomyopathy (principal); I25.10 Atherosclerotic heart disease of native coronary artery without angina pectoris; I25.5 Ischemic cardiomyopathy; E78.2 Mixed hyperlipidemia; I49.9 Cardiac arrhythmia, unspecified | CPT/HCPCS: 99214 ==

== ENCOUNTER 2024-03-25 14:04 | Outpatient (RCR) | payer SELFPAY | END 2024-04-20 23:59 | disposition home or self-care (01) | LOC: CR 14:04 | PROVIDERS: Family Provider Internal Medicine; PCP Internal Medicine; Referring Provider Internal Medicine Cardiovascular Disease; Visit Provider Internal Medicine Cardiovascular Disease | DX: I25.2 Old myocardial infarction (principal) ==

== ENCOUNTER 2024-04-21 13:39 | Outpatient (RCR) | payer SELFPAY | END 2024-05-21 23:59 | disposition home or self-care (01) | LOC: CR 13:39 | PROVIDERS: Family Provider Internal Medicine; PCP Internal Medicine; Referring Provider Internal Medicine Cardiovascular Disease; Visit Provider Internal Medicine Cardiovascular Disease | DX: I25.2 Old myocardial infarction (principal) ==

== ENCOUNTER 2024-04-29 06:46 | Outpatient (CLI) | payer MEDICARE, BC, SELFPAY ==
--- NOTE | 2024-04-29 07:00 | USCV_ITS ---
Zulma Dash Age: 78 Gender: F : 1945 Exam Date: 04/29/2024 07:08 Ordering Phys: Jessica Chambers MD ([email or web address]) Technologist: [place] [facility] [place]: lv function BP: 120 / 76 HR: Rhythm: Sinus Technical Quality: Adequate MEASUREMENTS (Male / Female) Normal Values 2D ECHO LV Diastolic Diameter PLAX 6.2 cm 4.2 - 5.9 / 3.9 - 5.3 cm IVS Diastolic Thickness 1.0 cm 0.6 - 1.0 / 0.6 - 0.9 cm IVS Systolic Thickness 1.2 cm LVPW Diastolic Thickness 1.2 cm 0.6 - 1.0 / 0.6 - 0.9 cm LVPW Systolic Thickness 1.3 cm LVOT Diameter 2.4 cm LV Ejection Fraction 2D Teich 28.7 % LV Ejection Fraction MOD 4C 54.1 % LV Ejection Fraction MOD 2C 45.5 % LV Ejection Fraction 2C AL 47.4 % LA Diameter 3.4 cm RA Systolic Volume 4C AL 44.7 ml RA Systolic Volume 4C MOD 42.4 ml IVC Diameter 2.0 cm M-MODE LA Ao Ratio MM 1.1 AV Cusp Separation MM 2.5 cm FINDINGS Left Ventricle Diffuse hypokinesia of the left-ventricle with an ejection fraction of 35 to 40%, visual. Mildly dilated LV cavity. Right Ventricle Normal right ventricular size and systolic function. Right Atrium Right atrium appears to be normal size. Left Atrium Moderately dilated left atrium. Mitral Valve No gross morphology abnormalities noted Aortic Valve Thickened aortic valve. Tricuspid Valve No gross morphology abnormalities noted Pulmonic Valve No gross abnormalities noted Pericardium No pericardial effusion. Aorta Normal aortic annulus size. IVC Normal inferior vena cava. CONCLUSIONS Diffuse hypokinesia of the left-ventricle with an ejection fraction of 35 to 40%, visual. Mildly dilated LV cavity. Moderately dilated left atrium. Normal right ventricular size and systolic function. Thickened aortic valve. There is no pericardial effusion. There are no intracardiac masses. Compared to the study from 04/01/2023, there may be a slight drop in the ejection fraction(from 43% to 35-40%) Dr Jessica Chambers MD [facility] (Electronically Signed) Final Date: 03 May 2024 20:53 S
== END 2024-04-29 06:47 | disposition home or self-care (01) ==
LOC: RAD 06:47
PROVIDERS: PCP Internal Medicine; Visit Provider Internal Medicine Cardiovascular Disease
DX: I35.2 Nonrheumatic aortic (valve) stenosis with insufficiency (principal); I51.7 Cardiomegaly
CPT/HCPCS: 93308

== ENCOUNTER → 2024-05-07 14:04 | Outpatient (BNVA) | payer MEDICARE, BC, SELFPAY | PROVIDERS: Family Provider Internal Medicine; PCP Internal Medicine; Visit Provider Student in an Organized Health Care Education/Training Program | DX: M17.12 Unilateral primary osteoarthritis, left knee | CPT/HCPCS: 99214 ==

== ENCOUNTER 2024-05-22 13:56 | Outpatient (RCR) | payer SELFPAY | END 2024-06-20 23:59 | disposition home or self-care (01) | LOC: CR 13:56 | PROVIDERS: Family Provider Internal Medicine; PCP Internal Medicine; Referring Provider Internal Medicine Cardiovascular Disease; Visit Provider Internal Medicine Cardiovascular Disease | DX: I21.4 Non-ST elevation (NSTEMI) myocardial infarction (principal) ==

== ENCOUNTER 2024-06-04 16:03 | Outpatient (CLI) | payer MEDICARE, BC, SELFPAY ==
--- NOTE | 2024-06-04 16:15 | CT_ITS ---
WS: [id number] CT LEFT knee, noncontrast HISTORY: LEFT TOTAL KNEE ARTHROPLASTY TECHNIQUE: Protocol for [facility] total knee replacement has been obtained. This includes axial imaging th rough the LEFT hip, LEFT knee and LEFT ankle. DLP: 1028.14 mGy.cm COMPARISON: Knee radiograph 11/15/2023 Pelvis: Bilateral prior hip arthroplasties. Moderate sigmoid diverticulosis. No free fluid in the pel vis. LEFT knee: Moderate tricompartment osteoarthritis. Greater arthropathy in the lateral compartment. Th ere is a lucency at the base of one of the osteophytes. With no history of trauma this is probably ju st related to the osteophyte development and not a fracture. There is a moderate size joint effusion. Large Wilson's cyst. LEFT ankle: Negative. CT/CT knee [facility] [id number] IMPRESSION: CT imaging provided for [facility] robotic total knee replacement.
== END 2024-06-04 16:04 | disposition home or self-care (01) ==
LOC: RAD 16:04
PROVIDERS: PCP Internal Medicine; Visit Provider Student in an Organized Health Care Education/Training Program
DX: Z01.818 Encounter for other preprocedural examination (principal); M17.12 Unilateral primary osteoarthritis, left knee; M25.762 Osteophyte, left knee; M25.462 Effusion, left knee; M71.22 Synovial cyst of popliteal space [Baker], left knee
CPT/HCPCS: 73700

== ENCOUNTER → 2024-06-23 16:08 | Outpatient (BNVA) | payer MEDICARE, BC, SELFPAY | PROVIDERS: Family Provider Internal Medicine; PCP Internal Medicine; Visit Provider Student in an Organized Health Care Education/Training Program | DX: Z01.818 Encounter for other preprocedural examination (principal) | CPT/HCPCS: 36415; 80053; 81001; 85025 ==

== ENCOUNTER 2024-07-06 14:09 | Observation (INO) | payer MEDICARE, BC, SELFPAY ==
[2024-07-06] VITALS (16 sets, daily range): BP systolic 93–133; BP diastolic 52–81; PULSE 61–75; RESP 13–18; TEMP 36.4–37.6; O2SAT 92–97; BMI 35.4
[2024-07-06] MEDS: sodium chloride 0.9% 1,000 ML 30 ML IV (10:07)
[2024-07-06] MEDS: acetaminophen 1,000 MG/100 ML PIGGYBACK 400 MG IV ×2 (10:14→17:34)
[2024-07-06] MEDS: ketorolac 30 mg/mL INJ IVP (10:15)
[2024-07-06 10:28] LABS: Basophils % 0.7 %; Eosinophils # 0.1 10^3/uL (0.0-0.8); Eosinophils % 2.8 %; Hematocrit 40.2 % (36-47); Lymphocytes # 1.1 10^3/uL (0.8-4.8); Lymphocytes % 25.6 %; Mean Corpuscular HGB Conc 31.6 g/dL (30-55); Mean Corpuscular Hemoglobin 28.3 pg (27-33); Mean Corpuscular Volume 89.7 fl (85-98); Mean Platelet Volume 10.8 fL (7.4-10.4); Monocytes # 0.5 10^3/uL (0.2-0.9); Monocytes % 10.6 %; Neutrophils # 2.61 10^3/uL (1.8-7.7); Neutrophils % 60.1 %; Nucleated Red Blood Cells % 0 %; Platelet Count 181 10^3/cmm (157-399); Red Blood Count 4.48 10^6/uL (3.85-5.65); Red Cell Distribution Width 13.9 % (12.1-15.1); White Blood Count 4.34 10^3/uL (3.29-11.43)
--- NOTE | 2024-07-06 10:34 | W.PM.OPSUD ---
Surgery/Procedure H&P Update DATE OF PROCEDURE: July 06, 2024 DATE H&P PERFORMED: 06/23/24 H&P UPDATE INFORMATION: I have reviewed H&P completed within last 30 days, I have examined patient prior to procedure and No changes to prior documentation CHANGES TO PREVIOUS DOCUMENTATION: No change in her health since her last office visit she overall is ready proceed with a left total knee arthroplasty today. All questions been answered at this time's cleared the preoperative clearance process. Patient understands the ins and outs procedure risk benefits complication alternatives surgery and through shared decision-making elects proceed with surgical intervention for a left total knee arthroplasty with Anthony robotic assisted. All questions answered. PREOP DIAGNOSIS: Left knee degenerative joint disease PRIMARY INDICATION FOR PROCEDURE: Left knee degenerative joint disease PLANNED PROCEDURE: Operation Date: 07/06/24 11:15 Proposed Procedures p Anthony Robot Total Knee Arthroplasty(Left) - Ascencion Garcias DO
[2024-07-06 10:44] LABS: Anion Gap 14.7 (5-19); Blood Urea Nitrogen 20 mg/dL (8-23); Calcium 9.5 mg/dL (8.5-10.5); Carbon Dioxide 24 mmol/L (22-29); Chloride 106 mmol/L (98-107); Creatinine Clr Calc Pharmacy 53.3038; Glucose 141 mg/dL (65-115); Osmolality Calculated 295 mOsm/kg (285-295); Potassium 4.7 mmol/L (3.5-5.1); Sodium 140 mmol/L (136-145)
--- NOTE | 2024-07-06 11:03 | P.ANESASSM_ITS ---
Pre-Anesthetic Assessment Height/Weight: Height 1.6 m Weight 90.718 kg Temp Pulse Resp BP Pulse Ox O2 Del Method 99 F 65 16 127/78 94 Room Air 07/06/24 09:47 07/06/24 09:47 07/06/24 09:47 07/06/24 09:47 07/06/24 09:47 07/06/24 09:47 Preop Diagnosis: Left knee degenerative joint disease Operation Date: 07/06/24 11:15 Proposed Procedures p Anthony Robot Total Knee Arthroplasty(Left) - Ascencion Garcias DO Familial anesthetic complications: None Was Beta Fabiola taken within 24 hours: Yes Was Clonidine taken within 24 hours: N/A Last intake: Intake Last Liquid Date 07/05/24 Last Liquid Time 22:00 Last Solid Date 07/05/24 Last Solid Time 22:00 Social No alcohol and No tobacco Exam alert, oriented x 3, clear to auscultation bilaterally and regular rate & rhythm CV/HEM Arrythmia (nonsunstained v tach; pvcs), Congestive Heart Failure (Non-ischemic cardiomyopathy - EF 35%) and Hypertension GI Gastroesophageal Reflux Disease Metabolic Hyperlipidemia Anesthetic Plan ASA status: 3 Anesthesia: Regional (specify below) Other: spinal + Adductor Risk of > 500 ml blood loss (7ml/kg in children): No Medications/Allergies Home Medications Medication Instructions Recorded Confirmed Last Taken Type aspirin 81 mg tablet,delayed 81 mg PO QDAY 08/19/19 07/06/24 06/30/24 History release (Adult Low Dose Aspirin) furosemide 40 mg tablet 40 mg PO QAM 08/19/19 07/06/24 07/05/24 History lorazepam 0.5 mg tablet 0.5 mg PO TID PRN Anxiety 08/19/19 07/06/24 07/06/24 History lutein 20 mg capsule 20 mg PO QDAY 08/19/19 07/06/24 07/05/24 History metoprolol tartrate 25 mg tablet 25 mg PO BID 08/19/19 07/06/24 07/06/24 History multivitamin 1 tab PO QAM 08/19/19 07/06/24 07/05/24 History pantoprazole 40 mg tablet,delayed 40 mg PO QDAY 08/19/19 07/06/24 07/06/24 History release magnesium oxide 400 mg PO BID 04/23/22 07/06/2407/05/24 History calcium 600 mg (as 1 tab PO DAILY 05/25/23 07/06/24 07/05/24 History carbonate)-vitamin D3 5 mcg (200 unit) tablet hydrocodone 5 mg-acetaminophen 325 1 tab PO Q6H PRN Pain 05/25/23 07/06/24 07/06/24 History mg tablet losartan 25 mg tablet 25 mg PO DAILY #30 tabs 10/17/23 07/06/24 07/05/24 Rx Allergies Allergy/AdvReac Type Severity Reaction Status Date / Time amoxicillin [From Augmentin] Allergy Intermediate hives Verified 06/24/24 10:24 clavulanic acid Allergy Intermediate hives Verified 06/24/24 10:24 [From Augmentin] insect venom Allergy Unknown unknown Verified 06/24/24 10:24 Sulfa (Sulfonamide Allergy Unknown unknown Verified 06/24/24 10:24 Antibiotics) Penicillins Allergy ALGY-Hives Verified 07/06/24 09:39 Current Medications Generic Name Dose Route Start Last Admin Trade Name Freq PRN Reason Stop Dose Admin Sodium Chloride 1,000 mls @ 30 mls/hr 07/06/24 09:30 07/06/24 10:07 Sodium Chloride 0.9% IV 07/07/24 09:29 30 mls/hr .Q24H AUDI Administration PFSH Anesthesia Medical History Hypertension Hyperlipidemia Cardiomyopathy Patient had a cardiac catheterization on 01/29/2016. She was found to have no significant obstructive coronary artery disease. Ejection fraction at that time was 30%. Subsequently the ejection fraction improved to 40%, by echocardiogram Hx of myocardial infarction PVC (premature ventricular contraction) Bee sting reaction Non-sustained ventricular tachycardia Elevated troponin Other specified cardiac arrhythmias Osteoarthritis Diverticulosis GERD (gastroesophageal reflux disease) Surgical History History of tonsillectomy and adenoidectomy History of right hip replacement H/O cataract extraction History of knee replacement History of hysterectomy History of total hip arthroplasty Family History Brother CAD (coronary artery disease) Cancer Mother CAD (coronary artery disease) Cancer Father Cancer Other Hypertension Denies family history of Diabetes Clotting disorder Dementia Chronic kidney disease (CKD) Suicide Anesthesia complication Bleeding disorder Lung disease Stroke Social History Smoking and tobacco/nicotine status: never used tobacco/nicotine Alcohol intake: current Alcohol intake frequency: holidays/special occasions only Substance/Drug Use: never Data Anesthesia 07/06/24 10:07 07/06/24 10:08 Short CBC 07/06/24 Range/Units 10:07 WBC 4.34 (3.29-11.43) 10^3/uL Hgb 12.70 (11.27-16.99) g/dL Hct 40.2 (36-47) % MCV 89.7 (85-98) fl Plt Count 181 (157-399) 10^3/cmm Neut % (Auto) 60.1 % Neut # (Auto) 2.61 (1.8-7.7) 10^3/uL BMP 07/06/24 10:08 Sodium 140 Potassium 4.7 Chloride 106 Carbon Dioxide 24 BUN 20 Creatinine 0.9 Glucose 141 H Calcium 9.5 Cardiac Studies: 2 Echocardiogram 04/01/23 Echocardiogram Limited Views 04/29/24 Cardiac Event Monitor 06/04/23
[2024-07-06] MEDS: vancomycin 1,500 MG/300 ML PIGGYBACK 200 MG IV (11:26)
[2024-07-06] MEDS: clindamycin 900 MG/50 ML PREMIX 100 MG IV ×2 (12:28→21:37)
[2024-07-06] MEDS: tranexamic acid 1,000 mg/10mL SDV 1000 MG IV (13:09)
[2024-07-06] MEDS: EPINEPHrine 1 mg/mL INJ XX (13:33)
[2024-07-06] MEDS: ROPivacaine 0.2% Premix 100 mL 200 MG INTRA-ARTI (13:33)
[2024-07-06] MEDS: ketorolac 30 mg/mL INJ XX (13:33)
[2024-07-06] MEDS: tranexamic acid 1,000 mg/10mL SDV 1000 MG XX (13:33)
--- NOTE | 2024-07-06 14:21 | XRR_ITS ---
PROCEDURE INFORMATION: Exam: XR Left Knee Exam date and time: 07/06/2024 2:45 PM Age: 78 years old Clinical indication: Device placement; Joint replacement hardware; Prior surgery; Surgery date: Post-operative (0-2 days); Surgery type: Left tka; Additional info: Post L tka, do in pacu TECHNIQUE: Imaging protocol: Radiologic exam of the left knee. Views: 1 or 2 views. COMPARISON: CT knee LT [facility] [id number] 06/04/2024 4:07 PM FINDINGS: Bones/joints: Patient has had a left total knee arthroplasty. Hardware is well positioned. No acute fracture. No dislocation. Air in the left knee joint space, likely postsurgical in nature. Bones are diffusely osteopenic. Soft tissues: Air in the soft tissues surrounding the left knee joint space, likely postsurgical in nature. No radiopaque foreign body. XR/XR knee LT 1-2V [id number] IMPRESSION: 1. Status post left total knee arthroplasty without evidence for complication. 2. Air in the left knee joint space and surrounding soft tissues, likely postsurgical in nature. 3. Incidental/nonacute findings are listed in the report.
--- NOTE | 2024-07-06 14:24 | PM.OP ---
Operative Report Date of procedure: July 06, 2024 Surgeon: Ascencion Garcias DO Senior It Assistant: Frank Garcias PA-C: PA was necessary for assistance in this case with leg positioning retraction and protection of neurovascular structures as well as assistance in implantation wound closure and dressing application. Procedure: Preoperative diagnosis: Left knee degenerative joint disease Post-op diagnosis: Same Procedure done: Left total knee arthroplasty, cemented?robotic assisted Anthony Implants: [place] triathlon size 3 femur CR cemented?left [place] triathlon size? 2 tibia universal baseplate cemented [place] triathlon symmetric patella size 29 mm Jovanny triathlon polyethylene 11mm Surgeon: Ascencion Garcias DO Estimated blood?loss: 40 mL Tourniquet 51minutes IV fluids: 500 mL Urine output: 200 mL Complications: None Condition: stable Disposition: floor Brief History: Patient is a 78-year-old female with with chronic?left knee degenerative joint disease.? Patient has been worked up in the outpatient setting in the orthopedic office at this point time through shared decision making given? [id number] arthritis as well as failed conservative treatment, and pt would?like to proceed with a?left total knee arthroplasty.? Through shared decision making elected to proceed with surgical intervention for?left total knee arthroplasty.? We talked about continued conservative treatment and surgical intervention as far as the risk benefits complications alternatives surgical and nonsurgical treatment options.? At this point time understanding patient risks with surgery she agrees to proceed with surgical intervention.? Once again? risk with surgery include but are not?limited to make it better make it worse blood clot, heart attack, stroke, on the table, infection, injury to nerves or vessels, persistent pain, arthrofibrosis, implant failure.? Understanding these risks patient agrees to proceed with surgical intervention consent was obtained.? All questions answered. Procedure: Patient was seen and evaluated in the preoperative holding area.? Consent was reviewed and signed with patient with plan for?left total knee arthroplasty.? All questions answered.? Correct extremity marked.? Patient seen and evaluated by the anesthesia department and once cleared for surgery was taken back to the operative suite.? Patient was placed into a supine position on the OR table.? All bony prominences were well-padded.? Patient was appropriately secured to the bed.? Patient underwent anesthesia per the anesthesia department.? Patient received spinal anesthesia and? Leung catheter was placed.? A nonsterile tourniquet was applied to the?left thigh.? At this point in time a final timeout performed.? Patient received appropriate preoperative antibiotics and TXA. Next the?left?lower extremity was then prepped and draped in standard orthopedic fashion. Esmarch tourniquet was used exsanguinate the?left?lower extremity.? Tourniquet was insufflated to 250 mmHg. A standard anterior incision was made over midline of the knee.? Sharp scalpel excision through skin and subcutaneous tissue full-thickness skin flaps were made.? Fascia was elevated off of the extensor retinaculum was stable with medial parapatellar arthrotomy was then made.? The performed standard sequential releases..? Immediately on entry into the joint patient was found to have severe eburnated bone and tricompartmental arthritic changes noted.? With significant osteophyte formation.? Next the the patella was then stuffed and the knee was then flexed.?? Jen was placed superiorly around the anterior aspect of the femur this was freed of synovium and I subsequently then placed by 2 femur pins to establish my femur arrays for the Anthony robot.? These were then placed bicortically and? femur array was then appropriately secured with appropriate visualization.? Next attention was turned towards the tibial rays.? These were then drilled sequentially bicortically in parallel fashion and intraincisional.? I then placed my guide as well as my tibial array on in place.? This was appropriately secured and had excellent visualization with the Anthony robot.? Next the tibial checkpoint as well as femur checkpoint were then placed.? At this point time I then subsequently established my head center as well as my medial?lateral malleoli as well as my checkpoints.? Next utilizing standard Anthony technology I then mapped out the appropriate points and confirmation points around the femur as well as the tibia in standard fashion.? Once this was then done I then removed all osteophytes in preparation for dynamic testing.? All osteophytes were removed as well as I removed the ACL and the PCL was excised due to its significant tearing and degeneration noted.? At this point time the knee was brought into full extension and we performed our standard evaluation of our gap balancing stressing his?ligaments and extension as well as flexion appropriate adjustments were made to have appropriate gap balancing in both flexion and extension.? Patient has valgus deformity ligaments are stressed and were able to make corrections to her deformity while for satisfactory gap balancing. This plan for final cuts.? We get a preoperative plan evaluating our implants which was a size 3 femur and a size 2 tibia.? Next we brought in the Anthony robot and sequentially made our femur cuts.? All excess bony cuts were then removed.? Finally we made our tibial cut.? Once this was done a standard PCL retractor was then placed into this position I excised the medial and?lateral meniscus.? The tibial cut was then subsequently removed all excess bony debris was removed.? I then utilized a?lamina irrigation equipment installer and remove the posterior osteophytes.? At this point time sized the tibia and confirmed this was a size 2.? I utilized our blunt probe to establish rotation of tibial implant.? Once this was done I then placed my tibia size 2 trial in appropriate position and then subsequently placed tibial pins to hold this into place, I subsequently trialed up to a size 11 mm poly as well as a size 3 femur which was appropriately impacted in place knee was then subsequently brought into extension. Trials were then assessed,? this was stable with varus valgus stress in extension as well as had symmetrical translation when brought into flexion demonstrating symmetrical gaps. I had excellent balance gaps in flexion and extension with varus and valgus stresses.? At this point I was satisfied with these implants these were then verified and opened on the back table size 2 tibia, size 3 femur,? size 11 mm polythickness.? We did confirm appropriate gap balancing and stresses as well as alignment utilizing? Anthony and were satisfied with this plan.? ?At this point time with my trials in place I then towel clip the patella everted this made appropriate measurements subsequently utilizing freehand technique performed by patellar resurfacing this was confirmed to be appropriate resection and subsequently sized to be a 29 mm symmetric.? My drill peg guides were then clamped and appropriate position and appropriate position in the patella for appropriate tracking and parallel with the joint.? Pegs were drilled trial implant was placed and the knee was then subsequently ranged and found to have excellent patellar tracking.? Femur pegs were then drilled.?All checkpoints as well as guidepins and arrays were removed and appropriate counts made.? Satisfied with our tibial placement rotation I then utilized the keel punch and prepped the tibia.? At this point time all of our trial implants were removed.? The wound bed? was thoroughly irrigated and dried and prepped for cementation.? Cement was mixed on the back table.? Once cement was ready this was then covered onto the tibia and the tibial baseplate was then impacted and all excess cement was removed.? Next the polyethylene was then impacted into place on the tibial baseplate.? Next cement was placed onto the femur as well as under the femur implants and impacted in to place and all excess cement was extruded and removed.? Knee was taken into full extension? to clear all excess cement was removed.? Warm saline was placed over the joint.? I then towel clip patella and dried for cementation. cemented the patella into place.? This was all clamped and the cement was allowed to cure.? Thorough irrigation performed with pulse?lavage.? I then placed my periarticular injection while the cement was curing.? Once cured the knee was taken through range of motion and had excellent stability and gaps were balanced in flexion and extension.? Tourniquet was then deflated. hemostasis satisfactory with electrocautery.? Vancomycin powder was placed in wound bed for antibiotic infection prophylaxis. Next I then subsequently closed the capsule with Ethibond suture as well as a running strata fix suture.? Knee was then taken through range of motion 30 times.? Next the skin was then closed in?layered fashion of running stratifix sutures of deep and subcutenous tissue and skin.? ?closed in flexion and Prineo glue was then placed over the incision this allowed to cure.? Incision was covered with aldo, with ABDs soft roll and Henok wrap.? Patient was then awakened from anesthesia and taken to PACU in stable condition. Disposition: Patient taken to PACU in stable condition will be admitted to the floor for pain control PT/OT weight-bear as tolerated?left?lower extremity dressing changes as needed, DVT prophylaxis. Pain control. Patient will receive appropriate postoperative antibiotics. patient will be seen today by the internal medicine team for medical management.? Patient will follow up with the office in 2 weeks.? Patient understands agrees with current plan.? All questions answered.
--- NOTE | 2024-07-06 14:45 | W.PM.BPON ---
Date of Procedure: [July 06, 2024] Surgeon: [Dr. Garcias DO ] Sap Technical Developer(s): [Frank Garcias PA-C] Procedure(s) performed: [Left knee total arthroplasty with Anthony robotic assist] Findings of the procedure(s): [Left knee degenerative joint disease. Procedure went well and as planned] Estimated blood loss: [40 ml] Specimen(s) removed: [N/A] Post-operative diagnosis: [Left knee degenerative joint disease]
--- NOTE | 2024-07-06 15:09 | PM.PACU ---
PACU note Narrative: Patient is an 78-year-old female who just underwent a left total knee arthroplasty. Pt transferred to PACU in stable condition. Dressing is dry. pt is awake and alert. pt can wiggle toes and plantarflex and dorsiflex foot. pt able to perform straight leg raise, Femoral nerve intact. Distal pulses are palpable toes are warm and well-perfused. Cap refill is normal and under 2 seconds. Sensation to foot is intact. Pain is controlled. Exam: awake Disposition: admitted
--- NOTE | 2024-07-06 15:15 | ANE.PACU2 ---
Inpatient post-anesthesia follow up: Airway intact: Yes Vital signs: Temperature 98.5 F Pulse Rate 73 Respiratory Rate 18 Blood Pressure 117/64 Pulse Oximetry 93 Oxygen Delivery Me thod Room Air Oxygen Flow Rate Fraction of Inspir ed Oxygen Hydration adequate: Yes Nausea and vomiting: No Pain level: 1 Mental status: Baseline
--- NOTE | 2024-07-06 15:27 | PC.NURSE ---
1520 - accepted into OB 11 with KADI Naylor at side - BP 114/65 - pulse 71 - 02 94% - temp 98.4
--- NOTE | 2024-07-06 16:10 | P.CONIM_ITS ---
Providers/Reason For Consult 2 Consulting Physician/Specialty*: Hospital Reason for Consult*: Medical management Attending Physician: Ascencion Garcias DO Primary Care Provider: Dario Patel MD History of Present Illness History of Present Illness Zulma Dash is a 78 year old female Review of Systems 2 Const: Denies: fever(s), chills, body aches or malaise Card: Denies: chest pain or edema Resp: Denies: dyspnea, productive cough, change in phlegm color or hemoptysis GI: Denies: abdominal pain, nausea, vomiting, diarrhea, constipation, hematochezia or melena : Denies: urinary frequency or hematuria Musc: Denies: back pain or joint swelling Skin/Breast: Denies: rash Neuro: Denies: headache(s) Medications/Allergies Home Medications Medication Instructions Recorded Confirmed Last Taken Type aspirin 81 mg tablet,delayed 81 mg PO QDAY 08/19/19 07/06/24 06/30/24 History release (Adult Low Dose Aspirin) furosemide 40 mg tablet 40 mg PO QAM 08/19/19 07/06/24 07/05/24 History lorazepam 0.5 mg tablet 0.5 mg PO TID PRN Anxiety 08/19/19 07/06/24 07/06/24 History lutein 20 mg capsule 20 mg PO QDAY 08/19/19 07/06/24 07/05/24 History metoprolol tartrate 25 mg tablet 25 mg PO BID 08/19/19 07/06/24 07/06/24 History multivitamin 1 tab PO QAM 08/19/19 07/06/24 07/05/24 History pantoprazole 40 mg tablet,delayed 40 mg PO QDAY 08/19/19 07/06/24 07/06/24 History release magnesium oxide 400 mg PO BID 04/23/22 07/06/24 07/05/24 History calcium 600 mg (as 1 tab PO DAILY 05/25/23 07/06/24 07/05/24 History carbonate)-vitamin D3 5 mcg (200 unit) tablet hydrocodone 5 mg-acetaminophen 325 1 tab PO Q6H PRN Pain 05/25/23 07/06/24 07/06/24 History mg tablet losartan 25 mg tablet 25 mg PO DAILY #30 tabs 10/17/23 07/06/24 07/05/24 Rx oxycodone 5 mg tablet 5 mg PO Q6H PRN pain postop 7 days 07/06/24 Unknown Rx #28 tabs Allergies Allergy/AdvReac Type Severity Reaction Status Date / Time amoxicillin [From Augmentin] Allergy Intermediate hives Verified 06/24/24 10:24 clavulanic acid Allergy Intermediate hives Verified 06/24/24 10:24 [From Augmentin] insect venom Allergy Unknown unknown Verified 06/24/24 10:24 Sulfa (Sulfonamide Allergy Unknown unknown Verified 06/24/24 10:24 Antibiotics) Penicillins Allergy ALGY-Hives Verified 07/06/24 09:39 PFSH Acute 2 PFSH: Medical History Hypertension Hyperlipidemia Cardiomyopathy Patient had a cardiac catheterization on 01/29/2016. She was found to have no significant obstructive coronary artery disease. Ejection fraction at that time was 30%. Subsequently the ejection fraction improved to 40%, by echocardiogram Hx of myocardial infarction PVC (premature ventricular contraction) Bee sting reaction Non-sustained ventricular tachycardia Elevated troponin Other specified cardiac arrhythmias Osteoarthritis Diverticulosis GERD (gastroesophageal reflux disease) Surgical History History of tonsillectomy and adenoidectomy History of right hip replacement H/O cataract extraction History of knee replacement History of hysterectomy History of total hip arthroplasty Family History Brother CAD (coronary artery disease) Cancer Mother CAD (coronary artery disease) Cancer Father Cancer Other Hypertension Denies family history of Diabetes Clotting disorder Dementia Chronic kidney disease (CKD) Suicide Anesthesia complication Bleeding disorder Lung disease Stroke Social History Smoking and tobacco/nicotine status: never used tobacco/nicotine Alcohol intake: current Alcohol intake frequency: holidays/special occasions only Substance/Drug Use: never Vitals/I&O/Wt Last Vital Signs Temp 98.5 F 07/06/24 15:10 Pulse 73 07/06/24 15:10 Resp 18 07/06/24 15:27 BP 117/64 07/06/24 15:10 Pulse Ox 93 07/06/24 15:10 O2 Del Method Room Air 07/06/24 15:49 07/06/24 07/06/24 07/06/24 06:59 14:59 22:59 Intake Total 500 / 500 Output Total 240 / 240 Balance 260 / 260 Weight last 48 hrs Weight 90.718 kg Weight 90.718 kg Physical Exam 2 Const: COMMON NORMALS: patient oriented x3 and alert GENERAL APPEARANCE: c ooperative ORIENTATION/CONSCIOUSNESS: Yes awake HENMT: COMMON NORMALS: oropharynx normal Neck/C-Spine: COMMON NORMALS: no JVD Resp: COMMON NORMALS: normal respiratory effort and clear to auscultation bilaterally AUSCULTATION: clear to auscultation bilaterally Cardio: COMMON NORMALS: no JVD, regular rhythm, S1 normal heart sound present, S2 normal heart sound present and No murmurs present (Cardio) RHYTHM: regular rhythm HEART SOUNDS: S1 normal heart sound present and S2 normal heart sound present GI: COMMON NORMALS: Normal to inspection, nondistended, normoactive bowel sounds present, Soft to palpation and non-tender PALPATION: Yes Soft to palpation Extremity: COMMON NORMALS: no joint enlargement and no pedal edema OTHER: LLE dressing Neuro: COMMON NORMALS: patient oriented x3 and moves all extremities S ENSORIUM/ORIENTATION: Yes alert Skin: COMMON NORMALS: no rashes or lesions noted GENERAL SKIN EXAM: no rashes or lesions noted Urinary Catheter Management: Leung: Cath Placed During This Visit: yes Urinary Catheter Date of Insertion: 07/06/24 Urinary Catheter Time of Insertion: 12:50 Data 07/06/24 10:07 07/06/24 10:08 A&P Assessment and plan (1) S/P total knee arthroplasty: Status post left total knee arthroplasty. Doing well postoperatively, denies shortness of breath, chest pain or pressure. Pain currently under control. Monitor vitals, stop IV fluid with cardiomyopathy, history of CHF. Reassess blood counts for any anemia. Continue pain control, oxycodone, IV Dilaudid for severe breakthrough pain. Resume home Ativan. Pending PT assessment, post discharge planning. Reviewed vitals, CBC, BMP, knee x-ray, surgery note, discussed with orthopedic surgery. Repeat CBC, BMP (2) Nonischemic congestive cardiomyopathy: Currently without decompensated CHF. Stop IV fluid. Resume home Lasix from tomorrow. Cardiac diet. Hold losartan for now. Monitor blood pressure. Plan HTN: Hold losartan for now. Resume metoprolol. Monitor blood pressures. Consult Attestations 2 Medical Necessity Statement: Continue hospitalization after left TKA, post discharge planning and arrangements. and High MDM includes amount and/or complexity of data reviewed/ordered [ previous or external records, resulted lab(s)/test(s), ordered lab(s)/test(s) and other healthcare professional discussion] and described risk of complication, morbidity or mortality of management as documented Diagnoses S/P total knee arthroplasty Z96.659 Nonischemic congestive cardiomyopathy I42.0
[2024-07-06] MEDS: chlorhexidine gluconate 0.12% Btl 473 mL 30 ML MUCOUS MEM ×2 (17:23→21:38)
[2024-07-06] MEDS: calcium carb-vit d 600mg/400unit 1 Tablet 1 EACH PO (17:33)
[2024-07-06] MEDS: iron polysaccharide complex 150 mg Capsule PO (17:33)
[2024-07-06] MEDS: metoprolol tartrate 25 mg Tablet PO (17:34)
[2024-07-06] MEDS: docusate sodium 100 mg Capsule PO (17:34)
[2024-07-06] MEDS: magnesium oxide 400 mg tablet PO (17:34)
[2024-07-06] MEDS: mupirocin oint 22 gm 1 APPLIC NASAL (17:35)
[2024-07-06] MEDS: tranexamic acid 1,000 MG/100 ML PREMIX 600 MG IV (21:24)
[2024-07-07 02:08] VITALS: RESP 16
[2024-07-07] MEDS: oxyCODONE 5 mg IR Tab/Cap PO ×2 (02:08→09:20)
[2024-07-07] MEDS: acetaminophen 1,000 MG/100 ML PIGGYBACK 400 MG IV ×2 (02:10→10:41)
[2024-07-07 04:00] VITALS: BP 123/68; PULSE 71; RESP 16; TEMP 36.7
[2024-07-07] MEDS: clindamycin 900 MG/50 ML PREMIX 100 MG IV (04:35)
[2024-07-07 04:44] LABS: Basophils % 0.1 %; Hematocrit 35.5 % (36-47); Lymphocytes # 0.7 10^3/uL (0.8-4.8); Lymphocytes % 6.3 %; Mean Corpuscular HGB Conc 31.5 g/dL (30-55); Mean Corpuscular Hemoglobin 28.6 pg (27-33); Mean Corpuscular Volume 90.6 fl (85-98); Mean Platelet Volume 10.9 fL (7.4-10.4); Monocytes # 0.9 10^3/uL (0.2-0.9); Monocytes % 8.5 %; Neutrophils # 8.69 10^3/uL (1.8-7.7); Neutrophils % 84.8 %; Nucleated Red Blood Cells % 0 %; Platelet Count 155 10^3/cmm (157-399); Red Blood Count 3.92 10^6/uL (3.85-5.65); White Blood Count 10.25 10^3/uL (3.29-11.43)
[2024-07-07 05:03] LABS: Anion Gap 16.8 (5-19); Blood Urea Nitrogen 25 mg/dL (8-23); Carbon Dioxide 20 mmol/L (22-29); Chloride 108 mmol/L (98-107); Creatinine Clr Calc Pharmacy 53.3038; Glucose 130 mg/dL (65-115); Osmolality Calculated 296 mOsm/kg (285-295); Potassium 4.8 mmol/L (3.5-5.1); Sodium 140 mmol/L (136-145)
[2024-07-07] MEDS: FUROsemide 40 mg Tablet PO (06:10)
[2024-07-07] MEDS: TRAMadol 50 mg Tablet PO (08:21)
--- NOTE | 2024-07-07 09:18 | P.PN_ITS ---
Subjective 2 Subjective: She reports she is doing well today, although he is getting postoperative pain/soreness in her knee. She has ambulated with therapy. No difficulties with breathing. No chest pain or pressure. Vitals/I&O/Wt Last Vital Signs Temp 98.1 F 07/07/24 04:00 Pulse 71 07/07/24 04:00 Resp 16 07/07/24 04:00 BP 123/68 07/07/24 04:00 Pulse Ox 96 07/06/24 18:30 O2 Del Method Room Air 07/06/24 18:30 07/06/24 07/07/24 07/07/24 22:59 06:59 14:59 Intake Total 150 / 650 Output Total 150 / 390 300 / 690 Balance 0 / 260 -300 / -40 Weight last 48 hrs Weight 90.718 kg Weight 90.718 kg Physical Exam 2 Const: COMMON NORMALS: patient oriented x3 and alert GENERAL APPEARANCE: c ooperative ORIENTATION/CONSCIOUSNESS: Yes awake HENMT: COMMON NORMALS: oropharynx normal Neck/C-Spine: COMMON NORMALS: no JVD Resp: COMMON NORMALS: normal respiratory effort and clear to auscultation bilaterally AUSCULTATION: clear to auscultation bilaterally Cardio: COMMON NORMALS: no JVD, regular rhythm, S1 normal heart sound present, S2 normal heart sound present and No murmurs present (Cardio) RHYTHM: regular rhythm HEART SOUNDS: S1 normal heart sound present and S2 normal heart sound present GI: COMMON NORMALS: Normal to inspection, nondistended, normoactive bowel sounds present, Soft to palpation and non-tender PALPATION: Yes Soft to palpation Extremity: COMMON NORMALS: no joint enlargement and no pedal edema OTHER: LLE dressing Neuro: COMMON NORMALS: patient oriented x3 and moves all extremities S ENSORIUM/ORIENTATION: Yes alert Skin: COMMON NORMALS: no rashes or lesions noted GENERAL SKIN EXAM: no rashes or lesions noted Urinary Catheter Management: Leung: Cath Placed During This Visit: yes, but has since been removed by the nurse Reason for Continuing Indwelling Catheter: Decision to DC Catheter Urinary Catheter Date of Insertion: 07/06/24 Urinary Catheter Time of Insertion: 12:50 Date Urinary Catheter Removed: 07/07/24 Time Urinary Catheter Discontinued: 04:30 Data 07/07/24 04:30 07/07/24 04:30 A&P Assessment and plan (1) S/P total knee arthroplasty: Status post left total knee arthroplasty. Doing well. Some acute anemia, hemoglobin down to 11.2. Possibly with a component of dilution, platelets also down to 155. Received some IV fluids yesterday. Today was restarted on her Lasix. DVT prophylaxis when deemed safe by orthopedics. She has gotten up with therapy. Leung has been discontinued. Close discharge planning underway likely discharging home today. Reviewed vitals, CBC, BMP, anesthesia reassessment. Did have nausea and vomiting, but this has resolved. No difficulties with having breakfast this morning. (2) Nonischemic congestive cardiomyopathy: Was resumed on Lasix. Currently no signs of discomfort sedation. Should follow-up with primary provider for reassessment. Cardiac diet. Held losartan postoperatively, can resume at discharge. Monitor blood pressure. Plan HTN: Held losartan postoperatively, can resume at discharge. Resume metoprolol. Monitor blood pressures. Attestations 2 Medical Necessity Statement*: NA and Moderate MDM includes amount and/or complexity of data reviewed/ordered [ previous or external records and resulted lab(s)/test(s)] as documented Diagnoses S/P total knee arthroplasty Z96.659 Nonischemic congestive cardiomyopathy I42.0
[2024-07-07] MEDS: aspirin 81 mg EC Tablet PO (09:19)
[2024-07-07] MEDS: docusate sodium 100 mg Capsule PO (09:19)
[2024-07-07 09:20] VITALS: RESP 16
[2024-07-07] MEDS: iron polysaccharide complex 150 mg Capsule PO (09:20)
[2024-07-07] MEDS: multivitamin therapeutic Tablet 1 TAB PO (09:20)
[2024-07-07] MEDS: calcium carb-vit d 600mg/400unit 1 Tablet 1 EACH PO (09:20)
[2024-07-07] MEDS: pantoprazole DR 40 mg Tablet PO (09:20)
[2024-07-07] MEDS: metoprolol tartrate 25 mg Tablet PO (09:20)
[2024-07-07] MEDS: magnesium oxide 400 mg tablet PO (09:20)
[2024-07-07] MEDS: apixaban 5 mg Tablet 2.5 MG PO (09:20)
[2024-07-07] MEDS: mupirocin oint 22 gm 1 APPLIC NASAL (10:40)
[2024-07-07] MEDS: chlorhexidine gluconate 0.12% Btl 473 mL 30 ML MUCOUS MEM (10:40)
[2024-07-07] MEDS: vancomycin 1,500 MG/300 ML PIGGYBACK 200 MG IV (10:41)
[2024-07-07 10:45] VITALS: BP 117/70; PULSE 65; RESP 15; TEMP 36.4; O2SAT 95
--- NOTE | 2024-07-07 12:02 | PM.DCS ---
Discharge Providers Date of Admission: 07/06/24 14:09 Date of Discharge: July 07, 2024 Attending Provider at Admission: Ascencion Garcias DO Attending Provider at Discharge: Ascencion Garcias DO Consults: Dr. Albert-hospitalist Primary Care Provider: Dario Patel MD Diagnoses at Discharge Discharge Diagnosis (1) S/P total knee arthroplasty: Status: Acute (2) Nonischemic congestive cardiomyopathy: Status: Acute Reason for Visit Reason for Visit: M17.12 Brief History: s/p L TKA Hospital Course Hospital Course Patient presented to the preoperative holding area with plan for [left ] total knee arthroplasty after patient has been worked up in the outpatient setting for failed conservative treatment of [left ] knee degenerative joint disease. Once cleared by anesthesia for surgery patient subsequently was taken back to the operative suite underwent anesthesia per anesthesia department and then subsequently underwent a [left ] total knee arthroplasty. Procedure was performed without any complications patient was taken to PACU in stable condition patient recovered well in PACU and then was admitted to the floor postoperatively internal medicine was consulted and on board for medical management and assistance with care. Patient received appropriate PT/OT, postoperative antibiotics, postoperative TXA, pain control, postoperative DVT prophylaxis. Elevation and ice. Patient encouraged for knee range of motion allowed weightbearing as tolerated to the operative lower extremity. Dressing was changed as needed, labs were monitored daily. Patient recovered well postoperatively and worked well and progressed well with therapy. It was determined on postoperative day [ 1] the patient was stable for discharge from an orthopedic standpoint and medicine. Patient was comfortable with discharge and plan was discharged home. Patient received appropriate discharge instructions as well as pain medication and DVT prophylaxis postoperatively. Given appropriate instructions for dressing management. Patient will follow-up with Dr. Garcias/orthopedics in the office in 2 weeks. All questions answered. Understand if there is any issues questions or concerns and contact the office. Physical Exam Narrative: left knee examination: Dressings on in place is clean dry and intact, calf soft nontender compartment soft compressible normal postoperative swelling and tenderness palpation about the left knee patient is able to plantarflex and dorsiflex ankle sensation intact light touch distally. Distal pulses palpable. Urinary Catheter Management: Leung: Cath Placed During This Visit: yes, but has since been removed by the nurse Reason for Continuing Indwelling Catheter: Decision to DC Catheter Urinary Catheter Date of Insertion: 12/16/24 Urinary Catheter Time of Insertion: 12:50 Date Urinary Catheter Removed: 07/07/24 Time Urinary Catheter Discontinued: 04:30 Discharge Data Studies Completed and Pending Completed Studies During Hospitalization Category Date Time Status XR knee LT 1-2V [id number] Routine Exams 07/06/24 14:21 Completed Pending at discharge Category Date Time Status Basic Metabolic Panel AM LABS Lab 07/08/24 04:00 Ordered Basic Metabolic Panel AM LABS Lab 07/09/24 04:00 Ordered Complete Blood Count w/Auto AM LABS Lab 07/08/24 04:00 Ordered Complete Blood Count w/Auto AM LABS Lab 07/09/24 04:00 Ordered Radiology Impressions Knee X-Ray 07/06/24 14:21 IMPRESSION: 1. Status post left total knee arthroplasty without evidence for complication. 2. Air in the left knee joint space and surrounding soft tissues, likely postsurgical in nature. 3. Incidental/nonacute findings are listed in the report. Laboratory Results WBC 10.25 10^3/uL (3.29-11.43) 07/07/24 04:30 RBC 3.92 10^6/uL (3.85-5.65) 07/07/24 04:30 Hgb 11.20 g/dL (11.27-16.99) L 07/07/24 04:30 Hct 35.5 % (36-47) L 07/07/24 04:30 MCV 90.6 fl (85-98) 07/07/24 04:30 MCH 28.6 pg (27-33) 07/07/24 04:30 MCHC 31.5 g/dL (30-55) 07/07/24 04:30 RDW 14.0 % (12.1-15.1) 07/07/24 04:30 Plt Count 155 10^3/cmm (157-399) L 07/07/24 04:30 MPV 10.9 fL (7.4-10.4) H 07/07/24 04:30 Neut % (Auto) 84.8 % 07/07/24 04:30 Lymph % (Auto) 6.3 % 07/07/24 04:30 [place] % (Auto) 8.5 % 07/07/24 04:30 Eos % (Auto) 0.0 % 07/07/24 04:30 Baso % (Auto) 0.1 % 07/07/24 04:30 Neut # (Auto) 8.69 10^3/uL (1.8-7.7) H 07/07/24 04:30 Lymph # (Auto) 0.7 10^3/uL (0.8-4.8) L 07/07/24 04:30 Canyon # (Auto) 0.9 10^3/uL (0.2-0.9) 07/07/24 04:30 Eos # (Auto) 0.0 10^3/uL (0.0-0.8) 07/07/24 04:30 Baso # (Auto) 0.0 10^3/uL (0.0-0.1) 07/07/24 04:30 Nucleated RBC % (auto) 0 % 07/07/24 04:30 Nucleated RBCs # 0.0 /100WBC 07/07/24 04:30 Sodium 140 mmol/L (136-145) 07/07/24 04:30 Potassium 4.8 mmol/L (3.5-5.1) 07/07/24 04:30 Chloride 108 mmol/L (98-107) H 07/07/24 04:30 Carbon Dioxide 20 mmol/L (22-29) L 07/07/24 04:30 Anion Gap 16.8 (5-19) 07/07/24 04:30 BUN 25 mg/dL (8-23) H 07/07/24 04:30 Creatinine 0.9 mg/dL (0.5-0.9) 07/07/24 04:30 GFR Calculation Not Reportable 07/07/24 04:30 Glucose 130 mg/dL (65-115) H 07/07/24 04:30 Calculated Osmolality 296 mOsm/kg (285-295) H 07/07/24 04:30 Calcium 9.0 mg/dL (8.5-10.5) 07/07/24 04:30 Blood Type A Positive 07/06/24 10:07 Rho(D) Type Rh positive 07/06/24 10:07 Antibody Screen Negative 07/06/24 10:07 Vitals Last Vital Signs Temp 97.5 F L 07/07/24 10:45 Pulse 65 07/07/24 10:45 Resp 15 07/07/24 10:45 BP 117/70 07/07/24 10:45 Pulse Ox 95 07/07/24 10:45 O2 Del Method Room Air 07/07/24 10:45 Discharge Plan Discharge Patient Disposition: Home Health Service Condition: Stable Prescriptions: New calcium carbonate-vitamin D3 [Calcium 600 + D(3)] 600 mg-10 mcg (400 unit) tablet 1 tab PO DAILY 30 Days Qty: 30 0RF Continued lorazepam 0.5 mg tablet 0.5 mg PO TID PRN (Reason: Anxiety) metoprolol tartrate 25 mg tablet 25 mg PO BID lutein 20 mg capsule 20 mg PO QDAY aspirin [Adult Low Dose Aspirin] 81 mg tablet,delayed release (DR/EC) 81 mg PO QDAY furosemide 40 mg tablet 40 mg PO QAM multivitamin Tablet 1 tab PO QAM pantoprazole 40 mg tablet,delayed release (DR/EC) 40 mg PO QDAY losartan 25 mg tablet 25 mg PO DAILY Qty: 30 0RF magnesium oxide 400 mg magnesium tablet 400 mg PO BID calcium carbonate-vitamin D3 600 mg-5 mcg (200 unit) Tablet 1 tab PO DAILY Discontinued hydrocodone-acetaminophen 5-325 mg tablet 1 tab PO Q6H PRN (Reason: Pain) No Action hydrocodone-acetaminophen 10-325 mg tablet 1 tab PO Q6H PRN (Reason: pain) 7 Days Qty: 28 0RF Discharge Orders: Discharge Order (Routine); Ordered 07/07/24 Ordered By: Darrel Albert Other Ambulatory Orders: DME: Walker (Order) Location: None Selected Ordered By: Ascencion Garcias Referrals: [facility] [Outside] Dario Patel MD [Primary Care Provider] - 4-7 days Frank Garcias PA [Physician Commercial Trailer Truck Driver] - 07/27/24 9:00 am Discharge Diet: Cardiac Discharge Activity: Limit activity as instructed and Use walker/crutches as instructed Patient Instructions: Oxycodone, Rapid Release (By mouth), Ondansetron (By mouth) (Zofran, Zofran ODT Zuplenz), Apixaban (By mouth) (Eliquis), Acute Wound Care (DC), Precautions after Total Joint Replacement Surgery (DC), Opioid Safety (DC), Total Knee Replacement (DC), OB Discharge Report, OB Food/Drug Interaction Guide, Opioid Safety, Post Anesthesia Care Activity Restrictions/Additional Instructions: Orthopedic discharge instructions: Leave vida dressing on in place. Okay to shower if you disconnect battery pack set aside and wrapped the incision/dressing with Saran wrap. Vida dressing batteries designed to work for 5 to 7 days after that can disconnect the battery pack and throw it away and then leave the vida dressing on until the 2-week follow-up visit. Patient may weight-bear as tolerate to the operative extremity Utilize walker as needed Encourage knee range of motion Ice and elevate as needed for pain and swelling Take pain medication as prescribed Take antinausea medication as needed Supplement with Citracal vitamin D for bone health and healing Pain medication can cause constipation. take [id number] stool softeners and or MiraLAX. Take prescribed Eliquis twice daily for the next 14 days for blood clot prevention No baths or soaks Follow-up in the orthopedic office in 2 weeks Contact the office for any questions or concerns Discharge Attestations Time Spent in Discharge Care*: less than 30 min Quality Metrics Clinical Quality Measures [ No reported AMI, CVA or VTE this stay] Coding Level of Care Code Acute Code for Chg Fwd Diagnoses S/P total knee arthroplasty Z96.659 Nonischemic congestive cardiomyopathy I42.0
[2024-07-07 14:35] VITALS: BP 121/67; PULSE 74; RESP 15; TEMP 36.7; O2SAT 95
--- NOTE | 2024-07-09 15:27 | ANES.PROC ---
Anesthesia Procedures Procedure/Date: 07/09/24 Nerve Block ^: Nerve Block 1: Main Anesthesia: spinal anesthesia block Time Out Performed: Yes Consent: requested by attending/covering physician, from patient, from other, risks and benefits reviewed and patient agrees to proceed Nerve block location: adductor canal (L) Nerve block position: supine Anesthetic Used: ropivicaine 0.5% (30 ml) and with decadron (4 mg) Ultrasound used to: recognize landmarks and visualize and ID femerol nerve Nerve Stimulator Used?: No Injection: neg aspiration of heme Patient Tolerated Procedure: well Complications: none Additional Comments: Block performed on 07/06 at 1045 Procedure note entered late
== END 2024-07-07 14:40 | disposition home health service (06) ==
LOC: OBGYN 14:09
PROVIDERS: Physician Assistant; Admitting Provider Student in an Organized Health Care Education/Training Program; Family Provider Family Medicine; PCP Family Medicine; Visit Provider Student in an Organized Health Care Education/Training Program
PROC: 8E0Y0CZ Robotic Assisted Procedure of Lower Extremity, Open Approach (ICD-10-PCS; CPT 27447; principal; 2024-07-06 11:15)
DX: M17.12 Unilateral primary osteoarthritis, left knee (principal); I10 Essential (primary) hypertension; E78.5 Hyperlipidemia, unspecified; K21.9 Gastro-esophageal reflux disease without esophagitis
CPT/HCPCS: 27447; 20985; 36415; 51702; 73560; 80048; 85025; 86850; 86900; 97110; 97116; 97161; 97165; C1776; G0378; J0131; J0171; J1100; J1885; J2704; J2795; J3370; J3490; J7030

== ENCOUNTER → 2024-07-27 08:57 | Outpatient (BNVA) | payer BC, MEDICARE, SELFPAY | PROVIDERS: Family Provider Family Medicine; PCP Family Medicine; Visit Provider Physician Assistant | DX: Z96.652 Presence of left artificial knee joint (principal) | CPT/HCPCS: 73560; 73565 ==

== ENCOUNTER 2024-08-03 13:55 | Outpatient (RCR) | payer MEDICARE, BC, SELFPAY | END 2024-08-21 23:59 | disposition home or self-care (01) | LOC: SPT 13:55 | PROVIDERS: Visit Provider Physician Assistant | DX: Z47.1 Aftercare following joint replacement surgery (principal); Z96.652 Presence of left artificial knee joint | CPT/HCPCS: 97110; 97116; 97161 ==

== ENCOUNTER 2024-08-22 06:00 | Outpatient (RCR) | payer MEDICARE, BC, SELFPAY | END 2024-09-18 23:59 | disposition home or self-care (01) | LOC: SPT 06:00 | PROVIDERS: Visit Provider Physician Assistant | DX: Z47.1 Aftercare following joint replacement surgery (principal); Z96.652 Presence of left artificial knee joint | CPT/HCPCS: 97110; 97112 ==

== ENCOUNTER 2024-09-17 20:59 | Emergency (ER) | payer MEDICARE, BC, SELFPAY ==
[2024-09-17 21:01] VITALS: BP 154/78; PULSE 87; RESP 17; TEMP 36.6; O2SAT 96; BMI 35.4
--- NOTE | 2024-09-17 21:33 | W.ED.SKABFB ---
HPI - Skin/Abscess/Foreign Bdy General: Chief complaint: Skin/Abscess/Foreign Body Stated complaint: alergic reaction throat is bothering her now Time Seen by Provider: 09/17/24 21:10 History of Present Illness: 78-year-old female comes in today with a rash. Patient reports that she noticed on Saturday she started to break out in hives. Patient used some Benadryl at first and went to bed and the next day she went to [facility]. They given her dose of steroids and recommended to continue with Claritin daily. Patient seemed like the hives were improved but tonight she noticed that she had a recurrence of the rash. Patient then come to the ER. On exam patient has some urticaria to the abdomen that seems to be clearing. Airway is intact. Patient is not diabetic. Related Data Home Medications ?Medication ?Instructions ?Recorded ?Confirmed aspirin 81 mg tablet,delayed 81 mg PO QDAY 08/19/19 07/27/24 release (Adult Low Dose Aspirin) furosemide 40 mg tablet 40 mg PO QAM 08/19/19 07/27/24 lorazepam 0.5 mg tablet 0.5 mg PO TID PRN Anxiety 08/19/19 07/27/24 lutein 20 mg capsule 20 mg PO QDAY 08/19/19 07/27/24 metoprolol tartrate 25 mg tablet 25 mg PO BID 08/19/19 07/27/24 multivitamin 1 tab PO QAM 08/19/19 07/27/24 pantoprazole 40 mg tablet,delayed 40 mg PO QDAY 08/19/19 07/27/24 release magnesium oxide 400 mg PO BID 04/23/22 07/27/24 calcium 600 mg (as 1 tab PO DAILY 05/25/23 07/27/24 carbonate)-vitamin D3 5 mcg (200 unit) tablet Previous Rx's ?Medication ?Instructions ?Recorded losartan 25 mg tablet 25 mg PO DAILY #30 tabs 10/17/23 hydrocodone 10 mg-acetaminophen 1 tab PO Q6H PRN pain 5 days #20 07/27/24 325 mg tablet tabs prednisone 20 mg tablet 20 mg PO DAILY 5 days #5 tabs 09/17/24 Allergies Allergy/AdvReac Type Severity Reaction Status Date / Time amoxicillin (From Augmentin) Allergy Intermediate hives Verified 09/17/24 21:08 clavulanic acid (From Allergy Intermediate hives Verified 09/17/24 21:08 Augmentin) insect venom Allergy Unknown unknown Verified 09/17/24 21:08 Sulfa (Sulfonamide Allergy Unknown unknown Verified 09/17/24 21:08 Antibiotics) Penicillins Allergy ALGY-Hives Verified 09/17/24 21:08 Review of Systems General: Reports: 10 or more systems reviewed and unremarkable except in HPI and below PFSH ED PFSH: Medical History Hypertension Hyperlipidemia Cardiomyopathy Patient had a cardiac catheterization on 01/29/2016. She was found to have no significant obstructive coronary artery disease. Ejection fraction at that time was 30%. Subsequently the ejection fraction improved to 40%, by echocardiogram Hx of myocardial infarction PVC (premature ventricular contraction) Bee sting reaction Non-sustained ventricular tachycardia Elevated troponin Other specified cardiac arrhythmias Osteoarthritis Diverticulosis GERD (gastroesophageal reflux disease) Surgical History History of tonsillectomy and adenoidectomy History of right hip replacement H/O cataract extraction History of knee replacement History of hysterectomy History of total hip arthroplasty Family History Brother CAD (coronary artery disease) Cancer Mother CAD (coronary artery disease) Cancer Father Cancer Other Hypertension Denies family history of Diabetes Clotting disorder Dementia Chronic kidney disease (CKD) Suicide Anesthesia complication Bleeding disorder Lung disease Stroke Social History Smoking and tobacco/nicotine status: never used tobacco/nicotine Alcohol intake: current Alcohol intake frequency: holidays/special occasions only Substance/Drug Use: never Physical Exam Const: COMMON NORMALS: alert HENMT: COMMON NORMALS: normocephalic HEAD & SCALP: normocephalic Neck/C-Spine: COMMON NORMALS: full ROM Resp: COMMON NORMALS: normal respiratory effort Cardio: COMMON NORMALS: regular rate RATE: regular rate Back/Pelvis: COMMON NORMALS: thoracic and lumbar spine normal to inspection Extremity: COMMON NORMALS: full ROM Neuro: SENSORIUM/ORIENTATION: Yes alert Skin: NARRATIVE SKIN EXAM: Clearing urticarial rash Course Vital Signs: Vital signs: Vital Signs Temperature 97.9 F 09/17/24 21:01 Pulse Rate 87 09/17/24 21:01 Respiratory Rate 17 09/17/24 21:01 Blood Pressure 154/78 09/17/24 21:01 Pulse Oximetry 96 09/17/24 21:01 Oxygen Delivery Me thod Room Air 09/17/24 21:01 MDM - Skin/Abscess/Foreign Bdy Medicial Decision Making 78-year-old female comes in today for concerns of facial rash with redness to the cheeks and some itching in his throat. Patient has been treated already for urticaria yesterday with a shot of steroids and recommended use symptoms antihistamines. On exam patient appears to have a clearing urticarial rash to the torso some erythema to the face but no abnormalities to the tongue or throat. Lungs are clear to auscultation. Differential diagnosis allergic reaction, urticaria, eczema. Patient was given 50 mg of Benadryl IM. Patient was also given 10 mg of dexamethasone. Patient was continued on prednisone 20 mg daily for the next 5 days. Patient was recommended continue with Benadryl and/or Claritin. No radiology studies performed this visit Discharge Plan Discharge Patient Disposition: Home Clinical Impression: Urticaria Condition: Stable Prescriptions: New prednisone 20 mg tablet 20 mg PO DAILY 5 Days Qty: 5 0RF No Action lorazepam 0.5 mg tablet 0.5 mg PO TID PRN (Reason: Anxiety) metoprolol tartrate 25 mg tablet 25 mg PO BID lutein 20 mg capsule 20 mg PO QDAY aspirin [Adult Low Dose Aspirin] 81 mg tablet,delayed release (DR/EC) 81 mg PO QDAY furosemide 40 mg tablet 40 mg PO QAM multivitamin Tablet 1 tab PO QAM pantoprazole 40 mg tablet,delayed release (DR/EC) 40 mg PO QDAY losartan 25 mg tablet 25 mg PO DAILY Qty: 30 0RF hydrocodone-acetaminophen 10-325 mg tablet 1 tab PO Q6H PRN (Reason: pain) 5 Days Qty: 20 0RF magnesium oxide 400 mg magnesium tablet 400 mg PO BID calcium carbonate-vitamin D3 600 mg-5 mcg (200 unit) Tablet 1 tab PO DAILY Discharge Orders: Discharge ED (Routine); Ordered 09/17/24 Ordered By: Luke Medel Referrals: Dario Patel MD [Primary Care Provider] - Discharge Diet: Usual diet Discharge Activity: Increase activity as tolerated Patient Instructions: Urticaria (ED) Activity Restrictions/Additional Instructions: Use Claritin 1 to 2 tablets every 12 hours as needed for itching and rash. You may use Benadryl if you tolerate it. Follow-up with primary care for recheck in 3 to 5 days. Take steroids as directed. Print Language: Kittitian Coding Level of Care Code ED Computer Networking Instructor for Joseluis Sadler
[2024-09-17] MEDS: dexamethasone 10 mg/mL INJ IM (21:47)
[2024-09-17 21:48] VITALS: BP 153/113; PULSE 81; RESP 16; O2SAT 96
[2024-09-17] MEDS: diphenhydrAMINE 50 mg/mL SDV 1mL IM (21:48)
[2024-09-17 22:12] VITALS: BP 131/98; PULSE 77; RESP 16; O2SAT 97
== END 2024-09-17 22:13 | disposition home or self-care (01) ==
PROVIDERS: Emergency Provider Nurse Practitioner Family; PCP Family Medicine
DX: L50.9 Urticaria, unspecified (principal); Z79.82 Long term (current) use of aspirin; I10 Essential (primary) hypertension; E78.5 Hyperlipidemia, unspecified
CPT/HCPCS: 96372; 99284; J1100; J1200

== ENCOUNTER 2024-09-19 06:30 | Outpatient (RCR) | payer MEDICARE, BC, SELFPAY | END 2024-10-05 10:52 | disposition home or self-care (01) | LOC: SPT 06:30 | PROVIDERS: PCP Family Medicine; Visit Provider Physician Assistant | DX: Z47.1 Aftercare following joint replacement surgery (principal); Z96.652 Presence of left artificial knee joint | CPT/HCPCS: 97110; 97164 ==

== ENCOUNTER → 2024-09-22 13:47 | Outpatient (BNVA) | payer MEDICARE, BC, SELFPAY | PROVIDERS: PCP Family Medicine; Visit Provider Student in an Organized Health Care Education/Training Program | DX: Z96.652 Presence of left artificial knee joint (principal); R03.0 Elevated blood-pressure reading, without diagnosis of hypertension | CPT/HCPCS: 73560; 73565; 99213 ==

== ENCOUNTER 2024-10-20 14:45 | Outpatient (RCR) | payer SELFPAY | END 2024-11-18 23:59 | disposition home or self-care (01) | LOC: CR 14:45 | PROVIDERS: PCP Family Medicine; Visit Provider Internal Medicine Cardiovascular Disease | DX: I21.4 Non-ST elevation (NSTEMI) myocardial infarction (principal) ==

== ENCOUNTER → 2024-11-05 09:26 | Outpatient (BNVA) | payer MEDICARE, BC, SELFPAY | PROVIDERS: PCP Family Medicine; Visit Provider Nurse Practitioner Family | DX: I25.5 Ischemic cardiomyopathy (principal); E78.2 Mixed hyperlipidemia; I25.10 Atherosclerotic heart disease of native coronary artery without angina pectoris; R21 Rash and other nonspecific skin eruption; I49.3 Ventricular premature depolarization; Z96.659 Presence of unspecified artificial knee joint; I11.0 Hypertensive heart disease with heart failure; I50.20 Unspecified systolic (congestive) heart failure | CPT/HCPCS: 99214 ==

== ENCOUNTER 2024-11-19 12:41 | Outpatient (RCR) | payer SELFPAY | END 2024-12-19 23:59 | disposition home or self-care (01) | LOC: CR 12:41 | PROVIDERS: PCP Family Medicine; Visit Provider Internal Medicine Cardiovascular Disease | DX: I21.4 Non-ST elevation (NSTEMI) myocardial infarction (principal) ==

== ENCOUNTER → 2024-11-25 09:49 | Outpatient (BNVA) | payer MEDICARE, BC, SELFPAY | PROVIDERS: PCP Family Medicine; Visit Provider Nurse Practitioner Family | DX: L57.8 Other skin changes due to chronic exposure to nonionizing radiation (principal); L81.4 Other melanin hyperpigmentation; D22.5 Melanocytic nevi of trunk; L82.1 Other seborrheic keratosis; L30.9 Dermatitis, unspecified; L08.9 Local infection of the skin and subcutaneous tissue, unspecified | CPT/HCPCS: 11104; 99203 ==

== ENCOUNTER → 2024-12-07 10:14 | Outpatient (BNVA) | payer MEDICARE, BC, SELFPAY | PROVIDERS: PCP Family Medicine; Visit Provider Nurse Practitioner Family | DX: L30.8 Other specified dermatitis (principal) | CPT/HCPCS: 99212 ==

== ENCOUNTER → 2025-01-14 10:27 | Outpatient (BNVA) | payer MEDICARE, BC, SELFPAY | PROVIDERS: PCP Family Medicine; Visit Provider Nurse Practitioner Family | DX: L30.8 Other specified dermatitis (principal) | CPT/HCPCS: 99212 ==

== ENCOUNTER 2025-01-19 11:16 | Outpatient (RCR) | payer SELFPAY | END 2025-02-18 23:59 | disposition home or self-care (01) | LOC: CR 11:16 | PROVIDERS: PCP Family Medicine; Visit Provider Family Medicine | DX: I21.4 Non-ST elevation (NSTEMI) myocardial infarction (principal) ==

== ENCOUNTER 2025-02-19 13:48 | Outpatient (RCR) | payer SELFPAY | END 2025-03-21 23:59 | disposition home or self-care (01) | LOC: CR 13:48 | PROVIDERS: PCP Family Medicine; Visit Provider Family Medicine | DX: I21.4 Non-ST elevation (NSTEMI) myocardial infarction (principal) ==

== ENCOUNTER → 2025-03-02 08:41 | Outpatient (BNVA) | payer MEDICARE, BC, SELFPAY | PROVIDERS: PCP Family Medicine; Visit Provider Nurse Practitioner Family | DX: L30.8 Other specified dermatitis (principal); L57.8 Other skin changes due to chronic exposure to nonionizing radiation | CPT/HCPCS: 99213 ==

== ENCOUNTER 2025-03-23 13:51 | Outpatient (RCR) | payer SELFPAY | END 2025-04-20 23:59 | disposition home or self-care (01) | LOC: CR 13:51 | PROVIDERS: PCP Family Medicine; Visit Provider Family Medicine | DX: I21.4 Non-ST elevation (NSTEMI) myocardial infarction (principal) ==

== ENCOUNTER 2025-04-21 09:45 | Outpatient (RCR) | payer SELFPAY | END 2025-05-21 23:59 | disposition home or self-care (01) | LOC: CR 09:45 | PROVIDERS: PCP Family Medicine; Referring Provider Internal Medicine Cardiovascular Disease; Visit Provider Family Medicine | DX: I21.4 Non-ST elevation (NSTEMI) myocardial infarction (principal) ==

== ENCOUNTER 2025-04-25 16:21 | Emergency (ER) | payer MEDICARE, BC, SELFPAY ==
[2025-04-25] VITALS (16 sets, daily range): BP systolic 118–164; BP diastolic 65–94; PULSE 74–82; RESP 14–29; TEMP 36.8; O2SAT 91–100; BMI 35.4
--- NOTE | 2025-04-25 16:31 | XRR_ITS ---
PROCEDURE INFORMATION: Exam: XR Chest Exam date and time: 04/25/2025 4:51 PM Age: 79 years old Clinical indication: Other: TIA; Prior surgery; Surgery date: 6+ months; Surgery type: Cardiac catheterization TECHNIQUE: Imaging protocol: Radiologic exam of the chest. Views: 1 view. COMPARISON: CT angio chest PE protcl [id number] 05/26/2023 9:51 AM FINDINGS: Airway: There is tortuosity of the trachea with rightward deviation with no significant narrowing. Lungs: Unremarkable. No consolidation. Pleural spaces: Unremarkable. No pleural effusion. No pneumothorax. Heart/Mediastinum: Large hiatal hernia. Moderate cardiomegaly. Bones/joints: Unremarkable. XR/XR chest 1V portable [id number] IMPRESSION: Negative for acute pulmonary disease.
--- NOTE | 2025-04-25 16:31 | CTR_ITS ---
PROCEDURE INFORMATION: Exam: CT Head Without Contrast Exam date and time: 04/25/2025 4:34 PM Age: 79 years old Clinical indication: Stroke-like symptoms; Speech disturbance; Additional info: Symptoms of acute stroke TECHNIQUE: Imaging protocol: Computed tomography of the head without contrast. Radiation optimization: All CT scans at this facility use at least one of these dose optimization techniques: automated exposure control; mA and/or kV adjustment per patient size (includes targeted exams where dose is matched to clinical indication); or iterative reconstruction. Other technique: STROKE PROTOCOL was implemented. COMPARISON: No relevant prior studies available. RADIATION DOSE METRICS: Total DLP (mGy-cm): 1006.28 FINDINGS: Brain: There is mild cerebral atrophy. There is mild diffuse heterogeneity of the white matter attenuation, consistent with chronic white matter ischemic changes. Negative for acute intracranial hemorrhage. Negative for intracranial mass. Negative for mass effect on the brain. Negative for midline shift of the brain. Cerebral ventricles: No ventriculomegaly. Paranasal sinuses: Visualized sinuses are unremarkable. No fluid levels. Mastoid air cells: Visualized mastoid air cells are well aerated. Bones: Unremarkable. No acute fracture. Soft tissues: Unremarkable. CT/CT head thrombolytic [id number] IMPRESSION: Negative for acute intracranial pathology. ASSESSMENT: ASPECTS ([facility] Stroke Program Early CT Score) is 10.
--- NOTE | 2025-04-25 16:34 | W.ED.NEUROSD ---
HPI - Neuro Symptoms/Deficit General: Chief Complaint: Neuro Symptoms/Deficit Stated Complaint: slurred speech, feels shaky Time Seen by Provider: 04/25/25 16:30 Source: patient and family Mode of arrival: ambulatory Limitations: no limitations History of Present Illness: 79-year-old female states that today at 1500 she was riding in the car with her son and had a sudden onset where she had severe word finding difficulty and aphasia. She states that she felt like she just could not get her words out this lasted roughly 20 minutes and has since resolved. She states that she had also felt weak but did not notice any one-sided weakness or facial droop she denied any headache no history of stroke or TIA in the past. Patient feels completely normal at this time Related Data Home Medications ?Medication ?Instructions ?Recorded ?Confirmed aspirin 81 mg tablet,delayed 81 mg PO QDAY 08/19/19 11/05/24 release (Adult Low Dose Aspirin) furosemide 40 mg tablet 40 mg PO QAM 08/19/19 11/05/24 lorazepam 0.5 mg tablet 0.5 mg PO TID PRN Anxiety 08/19/19 11/05/24 lutein 20 mg capsule 20 mg PO QDAY 08/19/19 11/05/24 metoprolol tartrate 25 mg tablet 25 mg PO BID 08/19/19 11/05/24 multivitamin 1 tab PO QAM 08/19/19 11/05/24 pantoprazole 40 mg tablet,delayed 40 mg PO QDAY 08/19/19 11/05/24 release magnesium oxide 400 mg PO BID 04/23/22 11/05/24 calcium 600 mg (as 1 tab PO DAILY 05/25/23 11/05/24 carbonate)-vitamin D3 5 mcg (200 unit) tablet cetirizine 10 mg tablet (Zyrtec) 10 mg PO DAILY PRN 09/22/24 11/05/24 Previous Rx's ?Medication ?Instructions ?Recorded losartan 25 mg tablet 25 mg PO DAILY #30 tabs 10/17/23 hydrocodone 10 mg-acetaminophen 1 tab PO Q6H PRN pain 5 days #20 07/27/24 325 mg tablet tabs Allergies Allergy/AdvReac Type Severity Reaction Status Date / Time amoxicillin (From Augmentin) Allergy Intermediate hives Verified 11/05/24 09:30 clavulanic acid (From Allergy Intermediate hives Verified 11/05/24 09:30 Augmentin) insect venom Allergy Unknown unknown Verified 11/05/24 09:30 Sulfa (Sulfonamide Allergy Unknown unknown Verified 11/05/24 09:30 Antibiotics) Penicillins Allergy ALGY-Hives Verified 11/05/24 09:30 Review of Systems Neuro: Reports: Slurred speech present [facility] ED PFSH: Medical History (Updated 09/25/24 @ 00:00 by CARLOS Pina) Hypertension Hyperlipidemia Cardiomyopathy Patient had a cardiac catheterization on 01/29/2016. She was found to have no significant obstructive coronary artery disease. Ejection fraction at that time was 30%. Subsequently the ejection fraction improved to 40%, by echocardiogram Hx of myocardial infarction PVC (premature ventricular contraction) Bee sting reaction Non-sustained ventricular tachycardia Elevated troponin Other specified cardiac arrhythmias Osteoarthritis Diverticulosis GERD (gastroesophageal reflux disease) Surgical History History of tonsillectomy and adenoidectomy History of right hip replacement H/O cataract extraction History of knee replacement History of hysterectomy History of total hip arthroplasty Family History Brother CAD (coronary artery disease) Cancer Mother CAD (coronary artery disease) Cancer Father Cancer Other Hypertension Denies family history of Diabetes Clotting disorder Dementia Chronic kidney disease (CKD) Suicide Anesthesia complication Bleeding disorder Lung disease Stroke Social History Smoking and tobacco/nicotine status: never used tobacco/nicotine Alcohol intake: current Alcohol intake frequency: holidays/special occasions only Substance/Drug Use: never NIH stroke score NIHSS: Level Of Consciousness - 1a: 0 Level Of Consciousness Questions - 1b: Both Correct Level Of Consciousness Commands - 1c: Both Correct Best Gaze - 2: Normal Visual Disla - 3: No Visual Loss Facial Palsy - 4: Normal Motor Arm Right - 5: No Drift Motor Arm Left - 5: No Drift Motor Leg Right - 6: No Drift Motor Leg Left - 6: No Drift Limb Ataxia - 7: Absent Sensory - 8: Normal Best Language - 9: No Aphasia Dysarthia - 10: Normal Extinction And Inattention - 11: 0 Score: Total Score: 0 Physical Exam Const: COMMON NORMALS: no acute distress, patient oriented x3 and healthy appearing HENMT: COMMON NORMALS: normocephalic and atraumatic HEAD & SCALP: normocephalic and atraumatic Eye: COMMON NORMALS: Equal, round and reactive pupils present and EOMs intact bilaterally PUPIL: Yes Equal, round and reactive pupils present Neck/C-Spine: COMMON NORMALS: full ROM and supple Chest: COMMONS NORMALS: normal inspection of the chest and normal palpation of entire chest wall Resp: COMMON NORMALS: normal respiratory effort, No retractions, No use of accessory muscles and clear to auscultation bilaterally AUSCULTATION: clear to auscultation bilaterally Cardio: COMMON NORMALS: regular rate, regular rhythm and No murmurs present (Cardio) RATE: regular rate RHYTHM: regular rhythm GI: COMMON NORMALS: Normal to inspection, nondistended, normoactive bowel sounds present, Soft to palpation, non-tender and no masses PALPATION: Yes Soft to palpation Extremity: COMMON NORMALS: normal to inspection and full ROM Neuro: COMMON NORMALS: patient oriented x3, moves all extremities and no focal motor deficits Psych: COMMON NORMALS: mental status grossly normal, Normal thought process present and cooperative THOUGHT PROCESS: Normal thought process present Skin: COMMON NORMALS: no rashes or lesions noted and no wounds GENERAL SKIN EXAM: no rashes or lesions noted Course Vital Signs: Vital signs: Vital Signs Temperature 98.2 F 04/25/25 16:22 Pulse Rate 78 04/25/25 17:00 Respiratory Rate 29 H 04/25/25 17:00 Blood Pressure 145/94 04/25/25 17:00 Pulse Oximetry 94 04/25/25 17:00 Oxygen Delivery Me thod Room Air 04/25/25 16:31 MDM - Neuro Symptoms/Deficit Medical Decision Making Patient presents here with likely TIA lasted 20 minutes. Patient has no signs of stroke at this time her NIH is 0. She has no signs of subarachnoid hemorrhage. Blood work EKG here are normal EKG shows normal sinus rhythm heart rate [address] elevation curious 107 QTc 427. Chest x-ray showed no acute abnormality. I did recommend admission to patient for the TIA she states she feels much improved would like to follow-up with her PCP shared decision making and discussion we decided to discharge at this time. She is already on a baby aspirin will prescribe her statin but she states she is allergic to it is caused a rash and she did not want to take it. I informed her she needs to follow-up with her PCP in 2 to 4 days needs a further workup for the TIA outpatient I informed her she has any worsening symptoms she is to return immediately she understands and agrees to plan. Medical Records I reviewed the patient's medical records. Lab Data I reviewed the patient's lab results. 04/25/25 16:35 04/25/25 16:35 Radiology Impressions Chest X-Ray 04/25/25 16:31 IMPRESSION: Negative for acute pulmonary disease. Head CT 04/25/25 16: IMPRESSION: Negative for acute intracranial pathology. ASSESSMENT: ASPECTS ([place] Stroke Program Early CT Score) is 10. ADDENDUM: 04/25/25 1647 Findings were discussed with JACY KC at 04/25/2025 4:46 PM CDT. Laboratory Results WBC 6.23 10^3/uL (3.29-11.43) 04/25/25 16:35 RBC 4.84 10^6/uL (3.85-5.65) 04/25/25 16:35 Hgb 14.10 g/dL (11.27-16.99) 04/25/25 16:35 Hct 44.3 % (36-47) 04/25/25 16:35 MCV 91.5 fl (85-98) 04/25/25 16:35 MCH 29.1 pg (27-33) 04/25/25 16:35 MCHC 31.8 g/dL (30-55) 04/25/25 16:35 RDW 13.6 % (12.1-15.1) 04/25/25 16:35 Plt Count 194 10^3/cmm (157-399) 04/25/25 16:35 MPV 10.6 fL (7.4-10.4) H 04/25/25 16:35 Neut % (Auto) 60.3 % 04/25/25 16:35 Lymph % (Auto) 23.6 % 04/25/25 16:35 [place] % (Auto) 11.2 % 04/25/25 16:35 Eos % (Auto) 4.2 % 04/25/25 16:35 Baso % (Auto) 0.5 % 04/25/25 16:35 Neut # (Auto) 3.76 10^3/uL (1.8-7.7) 04/25/25 16:35 Lymph # (Auto) 1.5 10^3/uL (0.8-4.8) 04/25/25 16:35 [place] # (Auto) 0.7 10^3/uL (0.2-0.9) 04/25/25 16:35 Eos # (Auto) 0.3 10^3/uL (0.0-0.8) 04/25/25 16:35 Baso # (Auto) 0.0 10^3/uL (0.0-0.1) 04/25/25 16:35 Nucleated RBC % (auto) 0 % 04/25/25 16:35 Nucleated RBCs # 0.0 /100WBC 04/25/25 16:35 PT 12.30 SECONDS (12.1-14.9) 04/25/25 16:35 INR 0.86 (0.8-1.2) 04/25/25 16:35 APTT 19.2 SECONDS (23.9-36.7) L 04/25/25 16:35 Sodium 138 mmol/L (136-145) 04/25/25 16:35 Potassium 4.0 mmol/L (3.5-5.1) 04/25/25 16:35 Chloride 98 mmol/L (98-107) 04/25/25 16:35 Carbon Dioxide 26 mmol/L (22-29) 04/25/25 16:35 Anion Gap 18.0 (5-19) 04/25/25 16:35 BUN 24 mg/dL (8-23) H 04/25/25 16:35 Creatinine 1.2 mg/dL (0.5-0.9) H 04/25/25 16:35 GFR Calculation Not Reportable 04/25/25 16:35 Glucose 151 mg/dL (65-115) H 04/25/25 16:35 POC Glucose 138 mg/dL (70-110) H 04/25/25 16:33 Calculated Osmolality 293 mOsm/kg (285-295) 04/25/25 16:35 Calcium 9.7 mg/dL (8.5-10.5) 04/25/25 16:35 Total Bilirubin 0.4 mg/dL (0.15-1.2) 04/25/25 16:35 AST 23 U/L (0-32) 04/25/25 16:35 ALT 20 U/L (0-33) 04/25/25 16:35 Alkaline Phosphatase 86 U/L (35-105) 04/25/25 16:35 Total Protein 7.0 g/dL (6.6-8.7) 04/25/25 16:35 Albumin 4.3 g/dL (3.5-5.2) 04/25/25 16:35 Globulin 2.7 g/dL (1.3-4.6) 04/25/25 16:35 All radiology interpretation(s) finalized by discharge EKG Data EKG 1: I personally reviewed and interpreted this EKG as follows: EKG interpretation date: 04/25/25 EKG interpretation time: 16:41 Interpretation: nsr hr [address] elevation qrs 107 qtc 427 Discharge Plan Discharge Patient Disposition: Home Condition: Stable Prescriptions: No Action lorazepam 0.5 mg tablet 0.5 mg PO TID PRN (Reason: Anxiety) metoprolol tartrate 25 mg tablet 25 mg PO BID lutein 20 mg capsule 20 mg PO QDAY aspirin [Adult Low Dose Aspirin] 81 mg tablet,delayed release (DR/EC) 81 mg PO QDAY furosemide 40 mg tablet 40 mg PO QAM multivitamin Tablet 1 tab PO QAM pantoprazole 40 mg tablet,delayed release (DR/EC) 40 mg PO QDAY losartan 25 mg tablet 25 mg PO DAILY Qty: 30 0RF hydrocodone-acetaminophen 10-325 mg tablet 1 tab PO Q6H PRN (Reason: pain) 5 Days Qty: 20 0RF magnesium oxide 400 mg magnesium tablet 400 mg PO BID cetirizine [Zyrtec] 10 mg tablet 10 mg PO DAILY PRN calcium carbonate-vitamin D3 600 mg-5 mcg (200 unit) Tablet 1 tab PO DAILY Discharge Orders: Discharge ED (Routine); Ordered 04/25/25 Ordered By: Jacy Kc Referrals: Dario Patel MD [Primary Care Provider, Family Practice] - 1-3 days Discharge Diet: Advance as tolerated Discharge Activity: Resume usual activity Patient Instructions: Transient Ischemic Attack (ED) Print Language: Yoruba Coding Level of Care Code ED Patient Registration Representative for Jjg Doroteo
--- NOTE | 2025-04-25 16:41 | ECG_ITS ---
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 Measurements Intervals [place] Rate: 75 P: 74 OR: 170 QRS: -35 QRSD: 107 T: 23 QT: 399 QTc: 446 Interpretive Statements SINUS RHYTHM LEFT AXIS DEVIATION [QRS AXIS < -30] PATTERN CONSISTENT WITH PULMONARY DISEASE MODERATE ST DEPRESSION [0.05+ mV ST DEPRESSION] Compared to ECG 05/25/2023 16:03:11 Ventricular premature complex(es) no longer present ST (T wave) deviation still present Electronically Signed On 04-25-2025 21:19:04 CDT by Jessica Chambers M.D. [id number]
[2025-04-25 16:49] LABS: Hematocrit 44.3 % (36-47); Hemoglobin 14.10 g/dL (11.27-16.99); Mean Corpuscular HGB Conc 31.8 g/dL (30-55); Mean Corpuscular Hemoglobin 29.1 pg (27-33); Mean Corpuscular Volume 91.5 fl (85-98); Nucleated Red Blood Cells % 0 %; Platelet Count 194 10^3/cmm (157-399); Red Blood Count 4.84 10^6/uL (3.85-5.65); White Blood Count 6.23 10^3/uL (3.29-11.43)
[2025-04-25 17:03] LABS: INR 0.86 (0.8-1.2); Prothrombin Time 12.30 SECONDS (12.1-14.9)
[2025-04-25 17:04] LABS: Partial Thromboplastin Time 19.2 SECONDS (23.9-36.7)
[2025-04-25 17:08] LABS: Alanine Aminotransferase 20 U/L (0-33); Albumin Level 4.3 g/dL (3.5-5.2); Alkaline Phosphatase 86 U/L (35-105); Anion Gap 18.0 (5-19); Aspartate Amino Transferase 23 U/L (0-32); Blood Urea Nitrogen 24 mg/dL (8-23); Calcium 9.7 mg/dL (8.5-10.5); Carbon Dioxide 26 mmol/L (22-29); Chloride 98 mmol/L (98-107); Creatinine Clr Calc Pharmacy 39.3116; Globulin 2.7 g/dL (1.3-4.6); Glucose 151 mg/dL (65-115); Osmolality Calculated 293 mOsm/kg (285-295); Potassium 4.0 mmol/L (3.5-5.1); Sodium 138 mmol/L (136-145); Total Protein 7.0 g/dL (6.6-8.7)
== END 2025-04-25 18:00 | disposition home or self-care (01) ==
PROVIDERS: Emergency Provider Emergency Medicine; PCP Family Medicine
DX: R47.81 Slurred speech (principal); R25.1 Tremor, unspecified; R47.01 Aphasia; R53.1 Weakness; R94.31 Abnormal electrocardiogram [ECG] [EKG]; E78.5 Hyperlipidemia, unspecified; I10 Essential (primary) hypertension
CPT/HCPCS: 36415; 36416; 70450; 71045; 80053; 82962; 85025; 85610; 85730; 93005; 99285

== ENCOUNTER → 2025-04-27 09:09 | Outpatient (BNVA) | payer MEDICARE, BC, SELFPAY | PROVIDERS: PCP Family Medicine; Visit Provider Nurse Practitioner Family | DX: L30.8 Other specified dermatitis (principal); L57.8 Other skin changes due to chronic exposure to nonionizing radiation | CPT/HCPCS: 99214 ==

== ENCOUNTER 2025-04-28 14:00 | Emergency (ER) | payer BC, MEDICARE, SELFPAY ==
--- NOTE | 2025-04-28 14:07 | XR_ITS ---
WS: [id number] Portable AP upright chest, 04/28/2025 Clinical Data: weakness Comparison: Portable chest, 04/25/2025 Findings: No nodules, masses or effusions are seen. The heart is enlarged. The pulmonary vascularity is not increased. No pneumonia or pneumothorax is seen. There is a large hiatal hernia behind the heart. The aortic arch shows tortuosity. XR/XR chest 1V portable [id number] Impression: Atherosclerosis and cardiomegaly.
--- NOTE | 2025-04-28 14:07 | ECG_ITS ---
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1945 Requested By: Deonte Holt Order Number: [id number] Reading MD: BARBRA LO Measurements Intervals [place] Rate: 69 P: 81 SC: 164 QRS: -31 QRSD: 120 T: 0 QT: 394 QTc: 422 Interpretive Statements SINUS RHYTHM WITH OCCASIONAL VENTRICULAR PREMATURE COMPLEXES LEFT AXIS DEVIATION [QRS AXIS < -30] MODERATE INTRAVENTRICULAR CONDUCTION DELAY [110+ ms QRS DURATION] Compared to ECG 04/25/2025 16:41:55 Ventricular premature complex(es) now present Intraventricular conduction delay now present ST (T wave) deviation no longer present Electronically Signed On 04-29-2025 16:51:04 CDT by BARBRA OL [email or web address]
[2025-04-28 14:09] VITALS: BP 145/84; PULSE 83; RESP 16; TEMP 36.9; O2SAT 93; BMI 35.4
[2025-04-28 16:07] LABS: Hematocrit 41.3 % (36-47); Hemoglobin 13.10 g/dL (11.27-16.99); Mean Corpuscular HGB Conc 31.7 g/dL (30-55); Mean Corpuscular Hemoglobin 28.5 pg (27-33); Mean Corpuscular Volume 89.8 fl (85-98); Nucleated Red Blood Cells % 0 %; Platelet Count 198 10^3/cmm (157-399); Red Blood Count 4.60 10^6/uL (3.85-5.65); White Blood Count 6.88 10^3/uL (3.29-11.43)
--- NOTE | 2025-04-28 16:18 | W.ED.GENADLT ---
HPI - General Adult General: Chief complaint: General Medical Stated complaint: Weakness Tired shakey Time Seen by Provider: 04/28/25 15:52 History of Present Illness: Patient was here on Saturday, 5 days ago, for TIA symptoms. When patient presented to the ED, symptoms had occurred within the last 2 hours, and symptoms had completely resolved at time of appearance. Her NIH was 0. Patient followed up with Dr. Patel, new primary care physician establish care yesterday. She was already on a baby aspirin daily, and Dr. Patel placed her on clopidogrel. She returns today with having increasing tiredness, sleepiness that started today. No recent cold or illness. No word finding. No dysphagia. No dysarthria/slurred speech. No sensation changes. No dizziness. Associated symptoms: Reports malaise; Deny chest pain, dyspnea, headache(s), nausea, palpitations or vomiting Related Data Home Medications ?Medication ?Instructions ?Recorded ?Confirmed aspirin 81 mg tablet,delayed 81 mg PO QDAY 08/19/19 11/05/24 release (Adult Low Dose Aspirin) furosemide 40 mg tablet 40 mg PO QAM 08/19/19 11/05/24 lorazepam 0.5 mg tablet 0.5 mg PO TID PRN Anxiety 08/19/19 11/05/24 lutein 20 mg capsule 20 mg PO QDAY 08/19/19 11/05/24 metoprolol tartrate 25 mg tablet 25 mg PO BID 08/19/19 11/05/24 multivitamin 1 tab PO QAM 08/19/19 11/05/24 pantoprazole 40 mg tablet,delayed 40 mg PO QDAY 08/19/19 11/05/24 release magnesium oxide 400 mg PO BID 04/23/22 11/05/24 calcium 600 mg (as 1 tab PO DAILY 05/25/23 11/05/24 carbonate)-vitamin D3 5 mcg (200 unit) tablet cetirizine 10 mg tablet (Zyrtec) 10 mg PO DAILY PRN 09/22/24 11/05/24 Previous Rx's ?Medication ?Instructions ?Recorded losartan 25 mg tablet 25 mg PO DAILY #30 tabs 10/17/23 hydrocodone 10 mg-acetaminophen 1 tab PO Q6H PRN pain 5 days #20 07/27/24 325 mg tablet tabs Allergies Allergy/AdvReac Type Severity Reaction Status Date / Time amoxicillin (From Augmentin) Allergy Intermediate hives Verified 11/05/24 09:30 clavulanic acid (From Allergy Intermediate hives Verified 11/05/24 09:30 Augmentin) insect venom Allergy Unknown unknown Verified 11/05/24 09:30 Sulfa (Sulfonamide Allergy Unknown unknown Verified 11/05/24 09:30 Antibiotics) Penicillins Allergy ALGY-Hives Verified 11/05/24 09:30 Review of Systems General: Reports: 10 or more systems reviewed and unremarkable except in HPI and below Const: Reports: fatigue and malaise; Denies: fever(s), chills, change in appetite or night sweats ENMT: Denies: throat pain, epistaxis or post nasal drip Card: Denies: chest pain or palpitations Resp: Denies: dyspnea or non-productive cough GI: Denies: abdominal pain, nausea or vomiting : Denies: flank pain or difficulty voiding Musc: Denies: neck pain or back pain Neuro: Denies: headache(s) or numbness in extremities Psych: Denies: anxiety or depression Jesus/Lymph: Denies: easy bruising or easy bleeding PFSH ED PFSH: Medical History (Updated 04/28/25 @ 18:15 by TRINIDAD Taylor) Hypertension Hyperlipidemia Cardiomyopathy Patient had a cardiac catheterization on 01/29/2016. She was found to have no significant obstructive coronary artery disease. Ejection fraction at that time was 30%. Subsequently the ejection fraction improved to 40%, by echocardiogram Hx of myocardial infarction PVC (premature ventricular contraction) Bee sting reaction Non-sustained ventricular tachycardia Elevated troponin Other specified cardiac arrhythmias Osteoarthritis Diverticulosis GERD (gastroesophageal reflux disease) Surgical History History of tonsillectomy and adenoidectomy History of right hip replacement H/O cataract extraction History of knee replacement History of hysterectomy History of total hip arthroplasty Family History Brother CAD (coronary artery disease) Cancer Mother CAD (coronary artery disease) Cancer Father Cancer Other Hypertension Denies family history of Diabetes Clotting disorder Dementia Chronic kidney disease (CKD) Suicide Anesthesia complication Bleeding disorder Lung disease Stroke Social History Smoking and tobacco/nicotine status: never used tobacco/nicotine Alcohol intake: current Alcohol intake frequency: holidays/special occasions only Substance/Drug Use: never Physical Exam Const: COMMON NORMALS: no acute distress, average body habitus, patient oriented x3, no limitations, healthy appearing, alert and well nourished HENMT: COMMON NORMALS: normocephalic, atraumatic and hearing grossly normal bilaterally HEAD & SCALP: normocephalic and atraumatic Neck/C-Spine: COMMON NORMALS: full ROM, no lymphadenopathy, supple and no meningeal signs Lymph: LYMPHATIC: no lymphadenopathy noted Chest: COMMONS NORMALS: normal inspection of the chest and normal palpation of entire chest wall Resp: COMMON NORMALS: normal respiratory effort and No retractions EFFORT & INSPECTION: No tachypneic and No respiratory distress AUSCULTATION: rales (Otherwise clear) on the right at the base Cardio: COMMON NORMALS: regular rate and regular rhythm RATE: regular rate RHYTHM: regular rhythm GI: COMMON NORMALS: Normal to inspection, nondistended, normoactive bowel sounds present and Soft to palpation PALPATION: Yes Soft to palpation : COMMON NORMALS: Yes no CVA tenderness BLADDER/KIDNEY EXAM: Yes no CVA tenderness Back/Pelvis: COMMON NORMALS: no CVA tenderness Extremity: COMMON NORMALS: normal to inspection, full ROM and capillary refill normal Neuro: COMMON NORMALS: patient oriented x3, CN's II-XII intact bilaterally, moves all extremities, no focal motor deficits, no sensory deficits noted, deep tendon reflexes 2+ bilaterally and gait normal SENSORIUM/ORIENTATION: Yes alert MENINGEAL SIGNS: Yes no meningeal signs Psych: COMMON NORMALS: mental status grossly normal, Normal thought process present and cooperative THOUGHT PROCESS: Normal thought process present Skin: COMMON NORMALS: no rashes or lesions noted and no wounds GENERAL SKIN EXAM: no rashes or lesions noted Course Vital Signs: Vital signs: Vital Signs Temperature 98.5 F 04/28/25 14:09 Pulse Rate 83 04/28/25 14:09 Respiratory Rate 16 04/28/25 14:09 Blood Pressure 145/84 04/28/25 14:09 Pulse Oximetry 93 04/28/25 14:09 Oxygen Delivery Me thod Room Air 04/28/25 14:09 [facility] - General Adult Medical Decision Making Patient is a pleasant 79-year-old female that reports to the emergency today with extreme tiredness that came on today. She had a normal morning, drink her coffee, was tired, laid back down, and continued to have ongoing release. She had no other symptoms. She had 3 doctors appointment yesterday. She had recent diagnosis of TIA. New primary care placed her on clopidogrel with her aspirin daily. Her initial workup is negative for acute pathology. She did have crackles in distal right lower lobe, which I was concerned about pneumonia, however procalcitonin is negative, she does not have any leukocytosis, no cough, no clinical symptoms of pneumonia. I suspect viral illness versus fatigue from healthcare. Discussed all of these with the patient. She will follow-up with her primary care. All of her question and her friend's questions answered their satisfaction. Medical Records I reviewed the patient's medical records. Lab Data I reviewed the patient's lab results. 04/28/25 15:22 04/28/25 15:22 Radiology Impressions Chest X-Ray 04/28/25 14:07 Impression: Atherosclerosis and cardiomegaly. Laboratory Results WBC 6.88 10^3/uL (3.29-11.43) 04/28/25 15:22 RBC 4.60 10^6/uL (3.85-5.65) 04/28/25 15:22 Hgb 13.10 g/dL (11.27-16.99) 04/28/25 15:22 Hct 41.3 % (36-47) 04/28/25 15:22 MCV 89.8 fl (85-98) 04/28/25 15:22 MCH 28.5 pg (27-33) 04/28/25 15:22 MCHC 31.7 g/dL (30-55) 04/28/25 15:22 RDW 13.4 % (12.1-15.1) 04/28/25 15:22 Plt Count 198 10^3/cmm (157-399) 04/28/25 15:22 MPV 10.9 fL (7.4-10.4) H 04/28/25 15:22 Neut % (Auto) 65.5 % 04/28/25 15:22 Lymph % (Auto) 20.3 % 04/28/25 15:22 [place] % (Auto) 10.6 % 04/28/25 15:22 Eos % (Auto) 3.1 % 04/28/25 15:22 Baso % (Auto) 0.4 % 04/28/25 15:22 Neut # (Auto) 4.50 10^3/uL (1.8-7.7) 04/28/25 15:22 Lymph # (Auto) 1.4 10^3/uL (0.8-4.8) 04/28/25 15:22 [place] # (Auto) 0.7 10^3/uL (0.2-0.9) 04/28/25 15:22 Eos # (Auto) 0.2 10^3/uL (0.0-0.8) 04/28/25 15:22 Baso # (Auto) 0.0 10^3/uL (0.0-0.1) 04/28/25 15:22 Nucleated RBC % (auto) 0 % 04/28/25 15: Nucleated RBCs # 0.0 /100WBC 04/28/25 15:22 PT 12.70 SECONDS (12.1-14.9) 04/28/25 15:22 INR 0.89 (0.8-1.2) 04/28/25 15:22 Sodium 138 mmol/L (136-145) 04/28/25 15:22 Potassium 4.5 mmol/L (3.5-5.1) 04/28/25 15:22 Chloride 99 mmol/L (98-107) 04/28/25 15:22 Carbon Dioxide 28 mmol/L (22-29) 04/28/25 15:22 Anion Gap 15.5 (5-19) 04/28/25 15:22 BUN 22 mg/dL (8-23) 04/28/25 15:22 Creatinine 1.0 mg/dL (0.5-0.9) H 04/28/25 15:22 GFR Calculation Not Reportable 04/28/25 15:22 Glucose 97 mg/dL (65-115) 04/28/25 15:22 Calculated Osmolality 289 mOsm/kg (285-295) 04/28/25 15:22 Calcium 10.1 mg/dL (8.5-10.5) 04/28/25 15:22 Magnesium 2.1 mg/dL (1.7-2.3) 04/28/25 15:22 Total Bilirubin 0.6 mg/dL (0.15-1.2) 04/28/25 15:22 AST 22 U/L (0-32) 04/28/25 15:22 ALT 19 U/L (0-33) 04/28/25 15:22 Alkaline Phosphatase 88 U/L (35-105) 04/28/25 15:22 Total Protein 6.6 g/dL (6.6-8.7) 04/28/25 15:22 Albumin 4.2 g/dL (3.5-5.2) 04/28/25 15:22 Globulin 2.4 g/dL (1.3-4.6) 04/28/25 15:22 Procalcitonin 0.04 ng/mL (0-0.5) 04/28/25 15:22 TSH 2.49 uIU/mL (0.27-4.20) 04/28/25 15:22 Urine Color Yellow (Yellow) 04/28/25 14:15 Urine Appearance Clear (CLEAR) 04/28/25 14:15 Urine pH 6.0 (5-7) 04/28/25 14:15 Ur Specific [place] 1.015 (1.005-1.030) 04/28/25 14:15 Urine Protein Negative (Negative) 04/28/25 14:15 Urine Glucose (UA) Negative (Normal) 04/28/25 14:15 Urine Ketones Negative (Negative) 04/28/25 14:15 Urine Blood Negative (Negative) 04/28/25 14:15 Urine Nitrate Negative (Negative) 04/28/25 14:15 Urine Bilirubin Negative (Negative) 04/28/25 14:15 Urine Urobilinogen 0.2 mg/dL (Negative) 04/28/25 14:15 Ur Leukocyte Esterase Trace (Negative) A 04/28/25 14:15 Urine RBC None /hpf (0-2) 04/28/25 14:15 Urine WBC 0-4 /hpf (0-5) H 04/28/25 14:15 Ur Squamous Epith Cells Rare /hpf (0-5) 04/28/25 14:15 Amorphous Sediment Not Reportable 04/28/25 14:15 Urine Bacteria None /hpf (NONE) 04/28/25 14:15 Urine Mucus None /hpf 04/28/25 14:15 All radiology interpretation(s) finalized by discharge EKG Data EKG 1: Interpretation: Normal sinus rhythm with left axis, PVC isolated, QTc 412, rate 69 Computer generated interpretation: Chest X-Ray 04/28/25 14:07 Impression: Atherosclerosis and cardiomegaly. Discharge Plan Discharge Patient Disposition: Home Clinical Impression: Viral illness Condition: Stable Prescriptions: No Action lorazepam 0.5 mg tablet 0.5 mg PO TID PRN (Reason: Anxiety) metoprolol tartrate 25 mg tablet 25 mg PO BID lutein 20 mg capsule 20 mg PO QDAY aspirin [Adult Low Dose Aspirin] 81 mg tablet,delayed release (DR/EC) 81 mg PO QDAY furosemide 40 mg tablet 40 mg PO QAM multivitamin Tablet 1 tab PO QAM pantoprazole 40 mg tablet,delayed release (DR/EC) 40 mg PO QDAY losartan 25 mg tablet 25 mg PO DAILY Qty: 30 0RF hydrocodone-acetaminophen 10-325 mg tablet 1 tab PO Q6H PRN (Reason: pain) 5 Days Qty: 20 0RF magnesium oxide 400 mg magnesium tablet 400 mg PO BID cetirizine [Zyrtec] 10 mg tablet 10 mg PO DAILY PRN calcium carbonate-vitamin D3 600 mg-5 mcg (200 unit) Tablet 1 tab PO DAILY Discharge Orders: Discharge ED (Routine); Ordered 04/28/25 Ordered By: Vivian Mcleod Referrals: Dario Patel MD [Primary Care Provider, Family Practice] Discharge Diet: Low Salt Patient Instructions: Viral Syndrome (ED), Patient Portal & Valeri Instructions Activity Restrictions/Additional Instructions: - Tylenol for pain. You can schedule regular strength Tylenol 3 times a day - No additional findings were noted on today's exams/workup - Continue your medications as prescribed - Follow-up with your doctor. Call for appointment for ER follow-up for next week. 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
[2025-04-28 16:25] LABS: INR 0.89 (0.8-1.2); Prothrombin Time 12.70 SECONDS (12.1-14.9)
[2025-04-28 16:46] LABS: Alanine Aminotransferase 19 U/L (0-33); Albumin Level 4.2 g/dL (3.5-5.2); Alkaline Phosphatase 88 U/L (35-105); Anion Gap 15.5 (5-19); Aspartate Amino Transferase 22 U/L (0-32); Blood Urea Nitrogen 22 mg/dL (8-23); Calcium 10.1 mg/dL (8.5-10.5); Carbon Dioxide 28 mmol/L (22-29); Chloride 99 mmol/L (98-107); Creatinine Clr Calc Pharmacy 47.1739; Globulin 2.4 g/dL (1.3-4.6); Glucose 97 mg/dL (65-115); Magnesium 2.1 mg/dL (1.7-2.3); Osmolality Calculated 289 mOsm/kg (285-295); Potassium 4.5 mmol/L (3.5-5.1); Sodium 138 mmol/L (136-145); Thyroid Stimulating Hormone 2.49 uIU/mL (0.27-4.20); Total Protein 6.6 g/dL (6.6-8.7)
[2025-04-28 17:48] LABS: Glucose Urine UA Negative (Normal); Nitrate Urine Negative (Negative); Specific Gravity, Urine 1.015 (1.005-1.030)
[2025-04-28 18:11] LABS: Add Urine Microscopic? YES
[2025-04-28 18:28] LABS: Procalcitonin 0.04 ng/mL (0-0.5)
== END 2025-04-28 18:27 | disposition home or self-care (01) ==
PROVIDERS: Emergency Medicine; Emergency Provider Physician Assistant; PCP Family Medicine
DX: B34.9 Viral infection, unspecified (principal); Z79.82 Long term (current) use of aspirin; E78.5 Hyperlipidemia, unspecified; I10 Essential (primary) hypertension
CPT/HCPCS: 36415; 71045; 80053; 81001; 83735; 84145; 84443; 85025; 85610; 93005; 99285

== ENCOUNTER 2025-05-04 07:48 | Outpatient (CLI) | payer MEDICARE, BC, SELFPAY ==
--- NOTE | 2025-05-04 07:58 | MR_ITS ---
WS: [id number] MRI HEAD WITH CONTRAST TECHNIQUE: Sagittal T1, T2 axial, T2 axial FLAIR, axial susceptibility weighted imaging, axial diffusion weighted images, and coronal T2 images were obtained. Pre and post-T1 axial and post T1 coronal images. ADC and FSPGR images. CLINICAL INFORMATION: TIA COMPARISON: CT 04/25/25 FINDINGS: No evidence of restricted diffusion to suggest acute ischemia. Mild small vessel changes. Mild parenchymal volume loss. No hemosiderin. Paranasal sinuses and mastoid air cells are well aerated. Normal optic chiasm. No abnormal gadolinium enhancement. MR/MR head wo/w con [id number] IMPRESSION: 1. No evidence of restricted diffusion to suggest acute ischemia. 2. Mild small vessel changes with mild parenchymal volume loss. 3. No abnormal gadolinium enhancement
[2025-05-04] MEDS: gadobenate dimeglumine 20 mL vial IV (08:42)
--- NOTE | 2025-05-04 09:03 | CT_ITS ---
WS: [id number] CT ANGIOGRAM CEREBRAL AND CAROTID ARTERIES HISTORY: TIA TECHNIQUE: CT angiogram is performed of the carotid and cerebral arteries. During arterial injection imaging is obtained from the skull vertex to the aortic arch in 1.25 mm imaging. Coronal and sagittal reformats are submitted. Additional multi planar reformats of the carotid and cerebral arteries are submitted, MIP imaging also reviewed. NASCET criteria utilized. All CT scans at [facility] use at least one of these dose optimization techniques: automated exposure control; mA and/or kV adjustment per patient size (includes targeted exams where dose is matched to clinical indication); or iterative reconstruction. CONTRAST: Omnipaque 350; 100 mL IV. DLP: 1215.20 mGy.cm COMPARISON: None available. Noncontrast CT head first performed. No acute intracranial hemorrhage. Mild atrophy and small vessel disease. Vertebral and carotid arteries are ectatic and tortuous with plaque. Carotid Angiogram: Right carotid: Common carotid artery: Plaque throughout the innominate artery but no high-grade stenosis. Internal carotid artery: Mild plaque in the cervical carotid artery. No stenosis. Bifurcation is intact. External carotid artery: Patent. Left carotid: Common carotid artery: Tortuous common carotid artery. Mild plaque. Internal carotid artery: Mild plaque and intimal thickening at the bifurcation. No stenosis. External carotid artery: Patent. Right vertebral artery: Mild plaque. No occlusion. Left vertebral artery: Mildly dominant with no occlusion or stenosis. Subclavian arteries: Aberrant RIGHT subclavian artery. No high-grade stenosis. Mild atherosclerosis both subclavian arteries. Upper thorax: Motion artifact in the upper lung [place]. Heterogeneous attenuation of the lungs. Aberrant RIGHT subclavian artery. Mildly ectatic aortic arch. Thyroid gland: Small caliber. Osseous structures: Advanced degenerative disc disease and cervical spondylosis. CEREBRAL ANGIOGRAM: Intracranial vertebral arteries: Dominant RIGHT vertebral artery. Both vertebral arteries are patent. Basilar artery: Mildly ectatic basilar artery. No stenosis. Intracranial Internal carotid arteries: Mildly ectatic intracranial vertebral arteries. Vertebral arteries are tortuous with mild plaque. No stenosis. Middle cerebral arteries: Normal. RIGHT middle cerebral artery is larger caliber than the LEFT that this is probably normal variant. No significant amount of plaque is identified. Anterior cerebral arteries and ACOM: Normal. Posterior cerebral arteries and PCOM's: Normal. Dural venous sinuses are normally enhancing. Mastoid air cells: Normal. Paranasal sinuses: Normal. Calvarium: Normal. CT/CT angio headneck* [id number] IMPRESSION: 1. No significant cervical carotid artery stenosis. Mild plaque. 2. Mild plaque in the intracranial carotid arteries to the cavernous sinuses. Arteries are tortuous but there is no occlusion or stenosis. 3. Vertebral arteries are both patent. 4. No high-grade stenosis in the [place]. No aneurysms.
[2025-05-04] MEDS: iohexol 350 mg/mL 500 mL Btl (per mL) IV (09:38)
== END 2025-05-04 07:49 | disposition home or self-care (01) ==
PROVIDERS: PCP Family Medicine; Visit Provider Family Medicine
DX: G45.9 Transient cerebral ischemic attack, unspecified (principal); Z86.73 Personal history of transient ischemic attack (TIA), and cerebral infarction without residual deficits; I67.2 Cerebral atherosclerosis
CPT/HCPCS: 70496; 70498; 70553

== ENCOUNTER → 2025-05-11 11:11 | Outpatient (BNVA) | payer MEDICARE, BC, SELFPAY | PROVIDERS: PCP Family Medicine; Visit Provider Internal Medicine Cardiovascular Disease | DX: I25.10 Atherosclerotic heart disease of native coronary artery without angina pectoris (principal); I10 Essential (primary) hypertension; I42.0 Dilated cardiomyopathy; E78.5 Hyperlipidemia, unspecified; I49.9 Cardiac arrhythmia, unspecified; Z79.82 Long term (current) use of aspirin; Z86.73 Personal history of transient ischemic attack (TIA), and cerebral infarction without residual deficits; I25.2 Old myocardial infarction | CPT/HCPCS: 99214 ==

== ENCOUNTER 2025-05-19 06:46 | Outpatient (CLI) | payer MEDICARE, BC, SELFPAY ==
--- NOTE | 2025-05-19 06:57 | USCV_ITS ---
Zulma Dash Age: 79 Gender: F : 1945 Exam Date: 05/19/2025 07:10 Ordering Phys: Dario Patel MD Technologist: RUBEN Exam Location: [facility] [place] Indication: TIA BP: 122 / 76 HR: 69 Rhythm: Sinus Technical Quality: Adequate MEASUREMENTS (Male / Female) Normal Values 2D ECHO LV Diastolic Diameter PLAX 6.4 cm 4.2 - 5.9 / 3.9 - 5.3 cm IVS Diastolic Thickness 0.6 cm 0.6 - 1.0 / 0.6 - 0.9 cm IVS Systolic Thickness 0.9 cm LVPW Diastolic Thickness 1.0 cm 0.6 - 1.0 / 0.6 - 0.9 cm LVPW Systolic Thickness 1.0 cm LVOT Diameter 2.0 cm LV Ejection Fraction 2D Teich 15.6 % LV Ejection Fraction MOD 4C 42.7 % LV Ejection Fraction MOD 2C 49.4 % LV Ejection Fraction 2C AL 49.9 % LA Diameter 3.7 cm RA Systolic Volume 4C AL 44.6 ml RA Systolic Volume 4C MOD 43.0 ml LA Sys Volume AL 41.2 cm cubed LA Sys Volume Index AL 19.6 cm cubed/m squared Aorta at Sinotubular Diameter 2.7 cm IVC Diameter 1.3 cm M-MODE LA Ao Ratio MM 1.4 AV Cusp Separation MM 1.7 cm DOPPLER AV Peak Velocity 151.0 cm/s LVOT Peak Velocity 90.0 cm/s AV Area Cont Eq vti 1.8 cm squared AV Area Cont Eq pk 1.9 cm squared MV Peak Velocity 92.0 cm/s MV Area PHT 5.2 cm squared TV Peak Velocity 290.5 cm/s TR Peak Velocity 293.0 cm/s TR Peak Gradient 34.3 mmHg TV Peak E Velocity 62.0 cm/s PV Peak Velocity 118.0 cm/s FINDINGS Left Ventricle Moderately increased left ventricular cavity size. Moderately decreased left ventricular systolic function. Left ventricular ejection fraction is estimated at 45 %. Global left ventricular hypokinesis. Grade I/IV diastolic dysfunction (abnormal relaxation filling pattern), normal to mildly elevated filling pressures. Right Ventricle Normal right ventricular size and systolic function. Right Atrium Normal right atrial size. Left Atrium Normal left atrial size. IA Septum Normal appearance of the interatrial septum. Mitral Valve Normal mitral valve structure. No mitral valve stenosis or regurgitation. Aortic Valve Mild aortic valve calcification. No aortic valve stenosis. Mild aortic valve regurgitation. Tricuspid Valve Normal tricuspid valve structure. No tricuspid valve stenosis or regurgitation. Normal pulmonary pressure. Pulmonic Valve Normal pulmonic valve structure. No pulmonic valve stenosis or regurgitation. Pericardium No pericardial effusion. Aorta Normal diameter of the aortic root and ascending thoracic aorta. IVC Normal IVC diameter. CONCLUSIONS Moderately increased left ventricular cavity size. Moderately decreased left ventricular systolic function. Left ventricular ejection fraction is estimated at 45 %. Global left ventricular hypokinesis. Grade I/IV diastolic dysfunction (abnormal relaxation filling pattern), normal to mildly elevated filling pressures. Mild aortic valve calcification. No aortic valve stenosis. Mild aortic valve regurgitation. There is no pericardial effusion. Right atrial pressure is around 10 mm of mercury. Jeanne Baker MD (Electronically Signed) Final Date: 25 May 2025 15:36 S
== END 2025-05-19 06:47 | disposition home or self-care (01) ==
LOC: RAD 06:47
PROVIDERS: PCP Family Medicine; Visit Provider Family Medicine
DX: G45.9 Transient cerebral ischemic attack, unspecified (principal); I51.7 Cardiomegaly; I51.89 Other ill-defined heart diseases; R93.1 Abnormal findings on diagnostic imaging of heart and coronary circulation; I35.8 Other nonrheumatic aortic valve disorders; I35.1 Nonrheumatic aortic (valve) insufficiency
CPT/HCPCS: 93306

== ENCOUNTER 2025-05-22 12:56 | Outpatient (RCR) | payer SELFPAY | END 2025-06-20 23:59 | disposition home or self-care (01) | LOC: CR 12:56 | PROVIDERS: PCP Family Medicine; Referring Provider Internal Medicine Cardiovascular Disease; Visit Provider Family Medicine | DX: I21.4 Non-ST elevation (NSTEMI) myocardial infarction (principal) ==

== ENCOUNTER → 2025-06-10 15:41 | Outpatient (BNVA) | payer MEDICARE, BC, SELFPAY | PROVIDERS: PCP Family Medicine; Visit Provider Internal Medicine Cardiovascular Disease | DX: I42.9 Cardiomyopathy, unspecified (principal); I25.10 Atherosclerotic heart disease of native coronary artery without angina pectoris; I10 Essential (primary) hypertension; E78.5 Hyperlipidemia, unspecified; I49.9 Cardiac arrhythmia, unspecified; Z86.73 Personal history of transient ischemic attack (TIA), and cerebral infarction without residual deficits; Z79.82 Long term (current) use of aspirin; I25.2 Old myocardial infarction | CPT/HCPCS: 99214 ==

== ENCOUNTER 2025-06-21 09:24 | Outpatient (RCR) | payer SELFPAY | END 2025-07-21 23:59 | disposition home or self-care (01) | LOC: CR 09:24 | PROVIDERS: PCP Family Medicine; Referring Provider Internal Medicine Cardiovascular Disease; Visit Provider Family Medicine | DX: I21.4 Non-ST elevation (NSTEMI) myocardial infarction (principal) ==

== ENCOUNTER → 2025-07-06 13:14 | Outpatient (BNVA) | payer MEDICARE, BC, SELFPAY | PROVIDERS: PCP Family Medicine; Visit Provider Student in an Organized Health Care Education/Training Program | DX: Z96.652 Presence of left artificial knee joint (principal); Z47.1 Aftercare following joint replacement surgery | CPT/HCPCS: 73560; 73565; 99213 ==